=== PATIENT | female | born 1980 | race Caucasian/White ===

== ENCOUNTER 2016-04-25 16:01 | Emergency (ER) | payer MEDICAID ==
--- NOTE | 2016-04-25 16:08 | ER Document Report ---
ED Medical Screen (RME) - General Chief Complaint: Hip Pain Stated Complaint: RIGHT HIP PAIN Notes: Right hip pain for 2 weeks with no known injury. I greeted and performed a rapid initial assessment of this patient. Comprehensive ED assessment and evaluation of the patient, analysis of test results and completion of the medical decision making process will be conducted by additional ED providers. TRAVEL OUTSIDE OF THE [place] IN LAST 30 DAYS: No - Related Data Allergies/Adverse Reactions: naproxen [From Aleve] Allergy (Verified 12/26/15 15:23) Past Medical History Endocrine Medical History: Reports: Hx Hypothyroidism Past Surgical History: Reports: Hx Breast Surgery, Hx Section, Hx Tonsillectomy
[2016-04-25] MEDS ORDERED: NORMAL SALINE 1000 ML 1,000 ML IV PRN (16:13)
[2016-04-25 16:34] LABS: ABSOLUTE BASOPHILS # (AUTO) 0.1 10^3/uL (0.0-0.2); ABSOLUTE EOSINOPHILS # (AUTO) 0.1 10^3/uL (0.0-0.6); ABSOLUTE LYMPHOCYTES (AUTO) 1.5 10^3/uL (0.5-4.7); ABSOLUTE MONOCYTES (AUTO) 0.6 10^3/uL (0.1-1.4); ABSOLUTE NEUT (AUTO) 10.6 10^3/uL (1.7-8.2); BASOPHILS % (AUTO) 0.7 % (0-2); EOSINOPHILS % (AUTO) 0.8 % (0-6); HEMATOCRIT 47.3 % (36.0-47.0); HEMOGLOBIN 15.5 g/dL (12.0-15.5); HGB HCT DIFFERENCE -0.8; LYMPHOCYTES % (AUTO) 11.8 % (13-45); MEAN CORPUSCULAR HGB CONC 32.8 g/dL (32.0-36.0); MEAN CORPUSCULAR VOLUME 89 fl (80-97); MONOCYTES % (AUTO) 4.6 % (3-13); RED BLOOD COUNT 5.34 10^6/uL (3.72-5.28); RED CELL DISTRIBUTION WIDTH 13.1 % (11.5-14.0); SEGMENTED NEUTROPHILS % (AUTO) 82.1 % (42-78)
[2016-04-25 16:40] LABS: APPEARANCE,URINE CLEAR; BILIRUBIN,URINE NEGATIVE (NEGATIVE); GLUCOSE, URINE NEGATIVE (NEGATIVE); KETONES,URINE NEGATIVE (NEGATIVE); LEUKOCYTE ESTERASE,URINE TRACE (NEGATIVE); NITRITE,URINE NEGATIVE (NEGATIVE); PROTEIN,URINE NEGATIVE (NEGATIVE); URINE SPECIFIC GRAVITY 1.005; UROBILINOGEN,URINE NEGATIVE mg/dL (<2.0)
[2016-04-25 16:50] LABS: ALANINE AMINOTRANSFERASE 33 U/L (9-52); ALKALINE PHOSPHATASE 94 U/L (38-126); ANION GAP 15 (5-19); ASPARTATE AMINO TRANSFERASE 29 U/L (14-36); BILIRUBIN,TOTAL 0.5 mg/dL (0.2-1.3); BLOOD UREA NITROGEN 11 mg/dL (7-20); CALCIUM 10.3 mg/dL (8.4-10.2); CARBON DIOXIDE 24 mmol/L (22-30); CHLORIDE 106 mmol/L (98-107); CREATININE RESULT 0.63 mg/dL (0.52-1.25); GLUCOSE 161 mg/dL (75-110); POTASSIUM 4.2 mmol/L (3.6-5.0); SODIUM 144.9 mmol/L (137-145)
[2016-04-25] MEDS ORDERED: IBUPROFEN 800 MG TABLET PO ONE (17:26)
--- NOTE | 2016-04-25 17:51 | ER Document Report ---
HPI - HPI Patient complains to provider of: hip pain Pain Level: 4 Context: Patient is a 35 old female presents emergency Department complaining of right hip pain. 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 She states it is worse with standing and while she is at work. States it is a constant ache and at its worse with a burning quality. Improves with rest, heat, ice, Motrin. Denies any injury or accident Past medical history significant for hypothyroidism and renal stones Past surgical history significant for breast augmentation, , tubal ligation, T&A - REPRODUCTIVE Reproductive: DENIES: : - DERM Skin Color: Normal, [place] Past Medical History - General Information source: Patient - Social History Smoking Status: Unknown if Ever Smoked Family History: None Patient has suicidal ideation: No Patient has homicidal ideation: No Endocrine Medical History: Reports: Hx Hypothyroidism Renal/ Medical History: Denies: Hx Peritoneal Dialysis Past Surgical History: Reports: Hx Breast Surgery, Hx Section, Hx Tonsillectomy Vertical Provider Document - CONSTITUTIONAL Agree With Documented VS: No - heartbeat 98/m Exam Limitations: No Limitations General Appearance: WD/WN, Mild Distress - INFECTION CONTROL TRAVEL OUTSIDE OF THE [place] IN LAST 30 DAYS: No - RESPIRATORY O2 Sat by Pulse Oximetry: 98 - CARDIOVASCULAR Cardiovascular: Regular Rate, Regular Rhythm, No Murmur Pulses: Normal: Radial, Dorsalis pedis Notes: Capillary refill in all lower extremity digits less than 2 seconds - BACK Back: Normal Inspection. negative: CVA Tenderness-Right, CVA Tenderness-Left Notes: No tenderness to palpation, able to ambulate without any difficulty. - MUSCULOSKELETAL/EXTREMETIES Musculoskeletal/Extremeties: FROM, Tender - Tenderness to palpation along the iliotibial band distribution, No Edema. negative: Eccymosis - NEURO Level of Consciousness: Awake, Alert, Appropriate Motor/Sensory: No Motor Deficit, No Sensory Deficit - DERM Integumentary: Warm, Dry, No Rash Course - Re-evaluation Re-evalutation: 04/25/16 17:59 Patient is a 35 old female who is visibly uncomfortable but otherwise hemodynamically stable in no acute distress. Stream physical exam along with benign x-ray lead to suspicion of IT band syndrome. Patient was educated on cause and proper stretching and appropriate management for her condition and she can follow-up with her primary care provider as needed - Vital Signs Vital signs: Temp Pulse Resp BP Pulse Ox 98.6 F 108 H 16 129/79 H 98 04/25/16 16:11 04/25/16 16:54 04/25/16 16:54 04/25/16 16:11 04/25/16 16:11 - Laboratory Result Diagrams: 04/25/16 16:15 04/25/16 16:15 Laboratory results interpreted by me: 04/25/16 04/25/16 04/25/16 16:15 16:15 16:15 WBC 13.0 H RBC 5.34 H Hct 47.3 H Seg Neutrophils % 82.1 H Lymphocytes % 11.8 L Absolute Neutrophils 10.6 H Glucose 161 H Calcium 10.3 H Ur Leukocyte Esterase TRACE H Discharge - Discharge Clinical Impression: IT band syndrome Qualifiers: Laterality: right Qualified Code(s): M76.31 - Iliotibial band syndrome, right leg Condition: Good Disposition: HOME, SELF-CARE Instructions: Muscle Strain ([facility]), Use of [id number]-Yabmbmd Ibuprofen ([facility]), Warm Packs ([facility]), Ice Massage ([facility]) Additional Instructions: -That causes her pain is likely due to iliotibial band syndrome. - Please see attached stretches and information on [id number] medications for symptom management. - You can follow-up with her primary care provider as needed Forms: Return to Work
[2016-04-25 18:49] VITALS: BP 126/82
== END 2016-04-25 18:49 | disposition home or self-care (01) ==
LOC: ER 16:01
DX: M76.31 Iliotibial band syndrome, right leg (principal); M25.551 Pain in right hip
CPT/HCPCS: 36415; 80053; 81001; 85025; 99283

== ENCOUNTER 2016-04-27 14:25 | Emergency (ER) | payer MEDICAID, OTHER ==
[2016-04-27] MEDS ORDERED: ONDANSETRON 4 MG TAB.RAPDIS PO ONE (15:04)
[2016-04-27] MEDS ORDERED: OXYCODONE-ACETAMINOPHEN 5-325 MG TABLET PO ONE (15:04)
--- NOTE | 2016-04-27 15:04 | ER Document Report ---
ED Medical Screen (RME) - General Stated Complaint: RIGHT HIP PAIN Mode of Arrival: Ambulatory Information source: Patient Notes: Patient complains of right lower back pain that radiates around to right side of abdomen. Patient states occasionally the pain will radiate to right lower extremity. Patient does report some nausea. Patient was evaluated 2 days ago in the ER for this complaint. Hx: Scoliosis, hypothyroid I have greeted and performed a rapid initial assessment of this patient. A comprehensive ED assessment and evaluation of the patient, analysis of test results and completion of the medical decision making process will be conducted by additional ED providers. TRAVEL OUTSIDE OF THE [place] IN LAST 30 DAYS: No - Related Data Allergies/Adverse Reactions: naproxen [From Aleve] Allergy (Verified 12/26/15 15:23) Past Medical History Endocrine Medical History: Reports: Hx Hypothyroidism Renal/ Medical History: Denies: Hx Peritoneal Dialysis Past Surgical History: Reports: Hx Breast Surgery, Hx Section, Hx Tonsillectomy Physical Exam - Vital signs Vitals: Temp Pulse Resp BP 97.9 F 94 22 H 122/62 04/27/16 14:43 04/27/16 14:43 04/27/16 14:43 04/27/16 14:43 - Abdominal Tenderness: Tender - Right lateral side of abdomen Course - Vital Signs Vital signs: Temp Pulse Resp BP Pulse Ox 97.9 F 94 22 H 122/62 04/27/16 14:43 04/27/16 14:43 04/27/16 14:43 04/27/16 14:43
[2016-04-27 15:48] LABS: ABSOLUTE BASOPHILS # (AUTO) 0.1 10^3/uL (0.0-0.2); ABSOLUTE EOSINOPHILS # (AUTO) 0.4 10^3/uL (0.0-0.6); ABSOLUTE LYMPHOCYTES (AUTO) 1.3 10^3/uL (0.5-4.7); ABSOLUTE MONOCYTES (AUTO) 0.9 10^3/uL (0.1-1.4); ABSOLUTE NEUT (AUTO) 13.8 10^3/uL (1.7-8.2); BASOPHILS % (AUTO) 0.5 % (0-2); EOSINOPHILS % (AUTO) 2.3 % (0-6); HEMATOCRIT 42.4 % (36.0-47.0); HEMOGLOBIN 14.4 g/dL (12.0-15.5); HGB HCT DIFFERENCE 0.8; LYMPHOCYTES % (AUTO) 7.8 % (13-45); MEAN CORPUSCULAR HEMOGLOBIN 29.8 pg (27.0-33.4); MEAN CORPUSCULAR VOLUME 88 fl (80-97); MONOCYTES % (AUTO) 5.3 % (3-13); RED BLOOD COUNT 4.84 10^6/uL (3.72-5.28); SEGMENTED NEUTROPHILS % (AUTO) 84.1 % (42-78); WHITE BLOOD COUNT 16.4 10^3/uL (4.0-10.5)
[2016-04-27 15:59] LABS: APPEARANCE,URINE CLEAR; BILIRUBIN,URINE NEGATIVE (NEGATIVE); GLUCOSE, URINE NEGATIVE (NEGATIVE); KETONES,URINE NEGATIVE (NEGATIVE); LEUKOCYTE ESTERASE,URINE NEGATIVE (NEGATIVE); NITRITE,URINE NEGATIVE (NEGATIVE); PROTEIN,URINE NEGATIVE (NEGATIVE); URINE SPECIFIC GRAVITY 1.015; UROBILINOGEN,URINE NEGATIVE mg/dL (<2.0)
[2016-04-27 16:05] LABS: ALANINE AMINOTRANSFERASE 32 U/L (9-52); ALBUMIN 4.1 g/dL (3.5-5.0); ALKALINE PHOSPHATASE 89 U/L (38-126); ANION GAP 12 (5-19); ASPARTATE AMINO TRANSFERASE 25 U/L (14-36); BILIRUBIN,TOTAL 0.3 mg/dL (0.2-1.3); BLOOD UREA NITROGEN 19 mg/dL (7-20); CALCIUM 9.5 mg/dL (8.4-10.2); CARBON DIOXIDE 29 mmol/L (22-30); CHLORIDE 101 mmol/L (98-107); CREATININE RESULT 0.63 mg/dL (0.52-1.25); GLUCOSE 65 mg/dL (75-110); LIPASE 17.5 U/L (23-300); POTASSIUM 4.8 mmol/L (3.6-5.0); SODIUM 141.6 mmol/L (137-145)
--- NOTE | 2016-04-27 16:34 | ER Document Report ---
ED GI/ - General Chief Complaint: Abdominal Pain Stated Complaint: RIGHT HIP PAIN Time seen by provider: 16:30 Mode of Arrival: Ambulatory Information source: Patient Notes: 35-year-old female presents to ED for right flank pain with blood in her urine nausea since the . Symptoms are not getting better but are actually getting worse. Patient does have a history of a kidney stone. TRAVEL OUTSIDE OF THE [place] IN LAST 30 DAYS: No - HPI Patient complains to provider of: Flank pain Onset: Last week Timing/Duration: Gradual, Intermittent, Persistent Quality of pain: Sharp Severity at maximum: Severe Severity in ED: Moderate Pain Level: 3 Location: Right flank Vaginal bleeding (Compared to normal period): None Associated symptoms: Nausea Exacerbated by: Movement, Walking Relieved by: Denies Similar symptoms previously: Yes Recently seen / treated by doctor: Yes - Related Data Allergies/Adverse Reactions: naproxen [From Aleve] Allergy (Verified 04/27/16 15:04) Past Medical History - General Information source: Patient - Social History Smoking Status: Current Every Day Smoker Cigarette use (# per day): Yes - 2-3 cigarettes a day Chew tobacco use (# tins/day): No Smoking Education Provided: Yes - less than 1 minute Frequency of alcohol use: Occasional Drug Abuse: None Occupation: [employer] Lives with: Family, Friend Family History: Arthritis, CAD, COPD, CVA, DM, Hyperlipidemia, Hypertension, Malignancy, Thyroid Disfunction Patient has suicidal ideation: No Patient has homicidal ideation: No - Past Medical History Cardiac Medical History: Reports: None Pulmonary Medical History: Reports: Other - Pulmonary sarcoidosis EENT Medical History: Reports: None Neurological Medical History: Reports: None Endocrine Medical History: Reports: Hx Hypothyroidism Renal/ Medical History: Reports: None Malignancy Medical History: Reports: None GI Medical History: Reports: None Musculoskeltal Medical History: Reports Other - Scoliosis Skin Medical History: Reports None Psychiatric Medical History: Reports: None Traumatic Medical History: Reports: None Surgical Hx: Negative Past Surgical History: Reports: Hx Breast Surgery, Hx Section - 3, Hx Nose Surgery - Deviated septum, Hx Tonsillectomy - Immunizations Immunizations up to date: Yes Review of Systems - Review of Systems Constitutional: No symptoms reported EENT: No symptoms reported Cardiovascular: No symptoms reported Respiratory: No symptoms reported Gastrointestinal: Nausea Genitourinary: Flank pain, Hematuria Female Genitourinary: No symptoms reported Musculoskeletal: No symptoms reported Skin: No symptoms reported Hematologic/Lymphatic: No symptoms reported Neurological/Psychological: No symptoms reported Physical Exam - Vital signs Vitals: Temp Pulse Resp BP 97.9 F 94 22 H 122/62 04/27/16 14:43 04/27/16 14:43 04/27/16 14:43 04/27/16 14:43 Interpretation: Normal - General General appearance: Appears well, Alert - HEENT Head: Normocephalic, Atraumatic Eyes: Normal Pupils: PERRL - Respiratory Respiratory status: No respiratory distress Chest status: Nontender Breath sounds: Normal Chest palpation: Normal - Cardiovascular Rhythm: Regular Heart sounds: Normal auscultation Murmur: No - Abdominal Inspection: Normal Distension: No distension Bowel sounds: Normal Tenderness: Tender - Right flank Organomegaly: No organomegaly - Back Back: Normal, Tender - Right flank, CVA tenderness - Right. No: Deformity/step- off, Vertebra tenderness, Scars, Scoliosis, Wounds - Extremities General upper extremity: Normal inspection, Nontender, Normal color, Normal ROM , Normal temperature General lower extremity: Normal inspection, Nontender, Normal color, Normal ROM , Normal temperature, Normal weight bearing. No: Sotero's sign - Neurological Neuro grossly intact: Yes Cognition: Normal Orientation: AAOx4 [place] Coma Scale Eye Opening: Spontaneous [place] Coma Scale Verbal: Oriented [place] Coma Scale Motor: Obeys Commands [place] Coma Scale Total: 15 Speech: Normal Motor strength normal: LUE, RUE, LLE, RLE Sensory: Normal - Psychological Associated symptoms: Normal affect, Normal mood - Skin Skin Temperature: Warm Skin Moisture: Dry Skin Color: Normal Course - Re-evaluation Re-evalutation: 04/27/16 18:[address] with patient and patient patient started on azithromycin discharged home with instructions to follow-up with her primary doctor within the next 2-3 days. - Vital Signs Vital signs: Temp Pulse Resp BP Pulse Ox 97.9 F 94 22 H 122/62 04/27/16 14:43 04/27/16 14:43 04/27/16 14:43 04/27/16 14:43 - Laboratory Result Diagrams: 04/27/16 15:30 04/27/16 15:30 Laboratory results interpreted by me: 04/27/16 04/27/16 04/27/16 15:30 15:30 15:30 WBC 16.4 H Seg Neutrophils % 84.1 H Lymphocytes % 7.8 L Absolute Neutrophils 13.8 H Glucose 65 L Lipase 17.5 L Urine Blood MODERATE H - Diagnostic Test Radiology reviewed: Image reviewed, Reports reviewed Discharge - Discharge Clinical Impression: Ground glass opacity present on imaging of lung, non obstructing kidney stones Pneumonia Qualifiers: Pneumonia type: due to unspecified organism Laterality: right Lung location: middle lobe of lung Qualified Code(s): J18.1 - Lobar pneumonia, unspecified organism Condition: Stable Disposition: HOME, SELF-CARE Instructions: Family Physicians / Practices Additional Instructions: KIDNEY STONE: You are passing or have passed a kidney stone. These stones are usually due to increased calcium or uric acid concentrations in your urine. Stones within the kidney itself are not painful. The pain occurs as the stone leaves the kidney to pass down the long tube, called the ureter, leading to the bladder. If the stone is small, it will usually pass by itself. Most patients can pass the stone at home. You will usually receive medications for pain, nausea or vomiting, and sometimes a medication to assist in passing the kidney stone. However, if the pain is very severe or if vomiting prevents you from taking oral pain medications, you may need to return for further treatment. Drink three or four quarts of fluids per day. You will be given pain medication (if needed) and urine strainers. Strain all your urine to see if the stone passes. If your doctor has asked you to bring the stone in for analysis, return with the stone once it has passed. Return if pain or vomiting become severe, if you develop a high fever, if you are unable to pass your urine, or if other unusual symptoms occur. Your stones are nonobstructing at this time and you do not have pain from the stone. PNEUMONIA: Your examination indicates that you have pneumonia. This is an infection of the lung tissue, usually caused by bacteria or a virus. Symptoms include cough, fever, shaking chills, chest pain, shortness of breath, and coughing up bloody sputum. Treatment for bacterial pneumonia includes rest, antibiotics for 10 to 14 days, increasing your clear liquid intake, a cool mist humidifier at your bedside, and fever medication. Often, a repeat chest X-ray is performed in a few weeks--even if you feel better--to ascertain whether the infection has completely resolved and no underlying lung problem is present. You should call the physician if you develop persistent vomiting, high fever that does not respond to fever medication, increasing shortness of breath , confusion, or lethargy. Also, failure to improve within two to three days is an indication for re-examination. AZITHROMYCIN: Azithromycin (Zithromax) is a broad spectrum antibiotic in the same class as erythromycin. It can treat a variety of bacterial infections, but is most frequently used for respiratory infections. Azithromycin is extremely long-lasting. It accumulates in body tissues and continues to kill bacteria for many days. In order to improve absorption, Azithromycin should be taken at least one hour before or two hours after a meal. It does not have the same strong tendency to upset the stomach as erythromycin and is usually very well tolerated. Patients who have had a rash or other true allergic reactions to erythromycin should not take this medication. Call if you develop gastrointestinal distress, severe diarrhea, rash, hives, itching, or shortness of breath. USE OF ACETAMINOPHEN (Tylenol): Acetaminophen may be taken for pain relief or fever control. It's much safer than aspirin, offering a wider range of "safe" dosages. It is safe during . Some brand names are Tylenol, Panadol, Datril, Anacin 3, Tempra, and Liquiprin. Acetaminophen can be repeated every four hours. The following are maximum recommended dosages: WEIGHT Dose Drops Elixir Chewable( 80mg) (LBS.) drprs=droppers tsp=teaspoon 6 40 mg 0.4 ml (1/2) 6-11 80 mg 0.8 ml (full) tsp 1 tab 12-16 120 mg 1 1/2 drprs 3/4 tsp 1 1/2 tabs 17-23 160 mg 2 drprs 1 tsp 2 tabs 24-30 240 mg 3 drprs 1 1/2 tsp 3 tabs 30-35 320 mg 2 tsp 4 tabs 36-41 360 mg 2 1/4 tsp 4 1/2 tabs 42-47 400 mg 2 1/2 tsp 5 tabs 48-53 480 mg 3 tsp 6 tabs 54-59 520 mg 3 1/4 tsp 6 1/2 tabs 60-64 560 mg 3 1/2 tsp 7 tabs 65-70 600 mg 3 3/4 tsp 7 1/2 tabs 71-76 640 mg 4 tsp 8 tabs 77-82 720 mg 4 1/2 tsp 9 tabs 83-88 800 mg 5 tsp 10 tabs >89 pounds or adults 650 mg to 900 mg Acetaminophen can be repeated every four hours. Maximum dose not to exceed 4000 mg a day. These maximum recommended dosages are slightly higher than the dosages written on the product container, but these dosages are very safe and below the toxic dosage for acetaminophen. USE OF [id number] IBUPROFEN: Ibuprofen (Advil, Nuprin, Medipren, Motrin IB) is a medication for fever and pain control. In addition, it has anti- inflammatory effects which may be beneficial, especially in the treatment of injuries. It's best to take ibuprofen with food. Persons with ulcer disease or allergy to aspirin should notify their physician of this before taking ibuprofen. Ibuprofen can be given every four to six hours, for a total of four doses daily. Age Pain or fever dose Antiinflammatory dose 6-8 yr 200 mg (1 tab) 200 mg (1 tab) 9-11 yr 200 mg (1 tab) 200-400 mg (1-2 tab) 11-14 yr 200-400 mg (1-2 tab) 400 mg (2 tab) 15-adult 400 mg (2 tab) 600 mg (3 tab) FOLLOW-UP CARE: If you have been referred to a physician for follow-up care, call the physician s office for an appointment as you were instructed or within the next two days. If you experience worsening or a significant change in your symptoms, notify the physician immediately or return to the Emergency Department at any time for re-evaluation. Prescriptions: Azithromycin [Zithromax 250 mg Tablet] 250 mg PO ASDIR PRN #6 tablet PRN Reason: Forms: Return to Work
[2016-04-27 19:05] VITALS: BP 130/66
== END 2016-04-27 18:54 | disposition home or self-care (01) ==
LOC: ER 14:25
DX: J18.1 Lobar pneumonia, unspecified organism (principal); N20.0 Calculus of kidney; R10.9 Unspecified abdominal pain; M25.551 Pain in right hip; F17.210 Nicotine dependence, cigarettes, uncomplicated; E03.9 Hypothyroidism, unspecified
CPT/HCPCS: 99284; 36415; 83690; 85025; 81025; 80053; 81001; 71250; 76380; S0119

== ENCOUNTER 2016-05-11 17:06 | Emergency (ER) | payer MEDICAID, OTHER ==
--- NOTE | 2016-05-11 17:42 | ER Document Report ---
ED Medical Screen (RME) - General Stated Complaint: SIDE PAIN Time seen by provider: 17:37 Mode of Arrival: Ambulatory Information source: Patient TRAVEL OUTSIDE OF THE [place] IN LAST 30 DAYS: No - HPI Patient complains to provider of: RIGHT HIP PAIN Onset: Other - 1 1/2 WEEKS Onset/Duration: Constant, Persistent Context: DX WITH PNEUMONIA, FINISH ANTIBIOTICS 10 DAYS AGO. STILL FEELING FATIGUED, WEAK , COUGHING, SOB Severity: Moderate Pain Level: 4 Associated Symptoms: Chills, Cough (productive), Diarrhea - N/V/D STARTED YESTERDAY, Dysuria - C/O URINARY FREQUENCY, Hurts to breath, Nausea, Shortness of breath, Vomiting, Other - PAIN RADIATES TO RIGHT HIP. denies: Fever Exacerbated by: Coughing, Deep breathing Relieved by: Denies Similar symptoms previously: Yes Recently seen / treated by doctor: Yes - Related Data Smoking: Quit less than 1 year Frequency of alcohol use: Occasional Drug Abuse: None Allergies/Adverse Reactions: naproxen [From Aleve] Allergy (Verified 05/11/16 17:36) Past Medical History Endocrine Medical History: Reports: Hx Hypothyroidism Renal/ Medical History: Denies: Hx Peritoneal Dialysis Past Surgical History: Reports: Hx Breast Surgery, Hx Section - 3, Hx Nose Surgery - Deviated septum, Hx Tonsillectomy - Immunizations Immunizations up to date: Yes Physical Exam - Vital signs Vitals: Temp Pulse Resp BP Pulse Ox 97.8 F 80 14 119/69 99 05/11/16 17:12 05/11/16 17:12 05/11/16 17:12 05/11/16 17:12 05/11/16 17:12 Course - Vital Signs Vital signs: Temp Pulse Resp BP Pulse Ox 97.8 F 80 14 119/69 99 05/11/16 17:12 05/11/16 17:12 05/11/16 17:12 05/11/16 17:12 05/11/16 17:12
[2016-05-11 18:13] LABS: ABSOLUTE BASOPHILS # (AUTO) 0.1 10^3/uL (0.0-0.2); ABSOLUTE EOSINOPHILS # (AUTO) 0.3 10^3/uL (0.0-0.6); ABSOLUTE LYMPHOCYTES (AUTO) 2.8 10^3/uL (0.5-4.7); ABSOLUTE MONOCYTES (AUTO) 0.8 10^3/uL (0.1-1.4); ABSOLUTE NEUT (AUTO) 10.2 10^3/uL (1.7-8.2); BASOPHILS % (AUTO) 0.9 % (0-2); EOSINOPHILS % (AUTO) 1.8 % (0-6); HEMATOCRIT 41.3 % (36.0-47.0); HGB HCT DIFFERENCE 0.7; MEAN CORPUSCULAR HEMOGLOBIN 29.7 pg (27.0-33.4); MEAN CORPUSCULAR VOLUME 88 fl (80-97); MONOCYTES % (AUTO) 5.6 % (3-13); RED BLOOD COUNT 4.71 10^6/uL (3.72-5.28); RED CELL DISTRIBUTION WIDTH 13.2 % (11.5-14.0); SEGMENTED NEUTROPHILS % (AUTO) 71.7 % (42-78); WHITE BLOOD COUNT 14.2 10^3/uL (4.0-10.5)
[2016-05-11 18:21] LABS: APPEARANCE,URINE CLEAR; BILIRUBIN,URINE NEGATIVE (NEGATIVE); GLUCOSE, URINE NEGATIVE (NEGATIVE); KETONES,URINE NEGATIVE (NEGATIVE); LEUKOCYTE ESTERASE,URINE NEGATIVE (NEGATIVE); NITRITE,URINE NEGATIVE (NEGATIVE); PROTEIN,URINE NEGATIVE (NEGATIVE); URINE SPECIFIC GRAVITY 1.016; UROBILINOGEN,URINE NEGATIVE mg/dL (<2.0)
[2016-05-11 18:23] LABS: ALANINE AMINOTRANSFERASE 48 U/L (9-52); ALBUMIN 4.6 g/dL (3.5-5.0); ALKALINE PHOSPHATASE 99 U/L (38-126); ANION GAP 11 (5-19); ASPARTATE AMINO TRANSFERASE 29 U/L (14-36); BILIRUBIN,TOTAL 0.4 mg/dL (0.2-1.3); BLOOD UREA NITROGEN 17 mg/dL (7-20); CALCIUM 9.9 mg/dL (8.4-10.2); CARBON DIOXIDE 30 mmol/L (22-30); CHLORIDE 103 mmol/L (98-107); CREATININE RESULT 0.69 mg/dL (0.52-1.25); GLUCOSE 94 mg/dL (75-110); SODIUM 143.8 mmol/L (137-145); TOTAL PROTEIN 7.2 g/dL (6.3-8.2)
--- NOTE | 2016-05-11 19:29 | ER Document Report ---
ED General - General Time seen by provider: 19:00 Information source: Patient, [facility] Records <ROSETTA SALVADOR - Last Filed: 05/11/16 19:30> - General Mode of Arrival: Ambulatory Information source: Patient, [facility] Records TRAVEL OUTSIDE OF THE [place] IN LAST 30 DAYS: No - HPI Onset: Other - last few weeks Onset/Duration: Persistent Quality of pain: Achy Associated symptoms: None Similar symptoms previously: Yes Recently seen / treated by doctor: Yes <POP CARDOZO - Last Filed: 05/11/16 20:19> - General Chief Complaint: Hip Pain Stated Complaint: SIDE PAIN Notes: This 35-year-old female patient comes emergency room for right low back pain for the past few weeks. She notes it is worse when she is walking. 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 The pain in the right low back came first, then over time she began having pain going down the right lateral thigh. She believes this may be due to altered walking mechanics compensating for the pain in the low back. She does have a past medical history of pulmonary sarcoidosis, hypothyroidism. She was seen here on 04/25/2016 and diagnosed with iliotibial band syndrome and recommended heat and Motrin. She was seen here [address] days later and had CT scans of the abdomen and pelvis and a CTA of the chest. The scans showed nephrolithiasis without ureterolithiasis. It showed chronic interstitial lung disease which spares the right middle lobe. This is probably do to her history of sarcoidosis and her smoking history. She did quit smoking on that visit on 04/27/2016. The scan also showed calcified granulomas and pulmonary consultation was recommended. The radiologist had read around grass appearance airspace disease possibility of pneumonia, so the patient was diagnosed with pneumonia and prescribed Zithromax. She has not received any benefit from the treatment so far. Physical exam today shows the pain is specifically in the right lumbar sacral muscles. Palpating the area reproduces the pain acutely. There is some mild tenderness along the iliotibial band. The lungs are essentially clear. (MADELEINEKEAGAN ChildersALL) Patient is a 35-year-old female that presents to the emergency department today with complaints of right low back pain. Patient states that she has had the pain for the last few weeks. Patient states her pain is exacerbated when walking. Patient states the pain initially began a few days ago in her right low back and has progressed down her right lateral thigh. Patient states she believes that she is over compensating when walking due to her low back pain which has caused the increasing, moving pain. 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 Family History: Reviewed & Not Pertinent Patient has suicidal ideation: No Patient has homicidal ideation: No Endocrine Medical History: Reports: Hx Hypothyroidism Past Surgical History: Reports: Hx Breast Surgery, Hx Section - 3, Hx Nose Surgery - Deviated septum, Hx Tonsillectomy - Immunizations Immunizations up to date: Yes <POP CARDOZO - Last Filed: 05/11/16 20:19> Review of Systems - Review of Systems Constitutional: No symptoms reported EENT: No symptoms reported Cardiovascular: No symptoms reported Respiratory: No symptoms reported Gastrointestinal: No symptoms reported Genitourinary: No symptoms reported Female Genitourinary: No symptoms reported Musculoskeletal: See HPI, Back pain - right lower back pain Skin: No symptoms reported Hematologic/Lymphatic: No symptoms reported Neurological/Psychological: No symptoms reported -: Yes All other systems reviewed and negative <OPP CARDOZO - Last Filed: 05/11/16 20:19> Physical Exam - General General appearance: Appears well, Alert In distress: None - HEENT Head: Normocephalic, Atraumatic Eyes: Normal Extraocular movements intact: Yes - Respiratory Respiratory status: No respiratory distress - Cardiovascular Rhythm: Regular Heart sounds: Normal auscultation Murmur: No - Abdominal Inspection: Normal Distension: No distension - Back Back: Tender - Exquisite tenderness with palpation over the lower lumbar muscles and upper sacral muscles. Reproduces chief complaint.. No: Deformity/ step-off - Extremities General upper extremity: Normal inspection, Normal ROM. No: Edema General lower extremity: Normal inspection, Normal ROM. No: Edema - Neurological Neuro grossly intact: Yes Cognition: Normal Speech: Normal - Psychological Associated symptoms: Normal affect, Normal mood - Skin Skin Temperature: Warm Skin Moisture: Dry Skin Color: Normal <POP CARDOZO - Last Filed: 05/11/16 20:19> - Vital signs Vitals: Temp Pulse Resp BP Pulse Ox 97.8 F 80 14 119/69 99 05/11/16 17:12 05/11/16 17:12 05/11/16 17:12 05/11/16 17:12 05/11/16 17:12 (ROSETTA SALVADOR) (POP CARDOZO) Course - Laboratory Result Diagrams: 05/11/16 17:45 05/11/16 17:45 <ROSETTA SALVADOR - Last Filed: 05/11/16 19:30> - Laboratory Result Diagrams: 05/11/16 17:45 05/11/16 17:45 <POP CARDOZO - Last Filed: 05/11/16 20:19> - Vital Signs Vital signs: Temp Pulse Resp BP Pulse Ox 97.8 F 80 14 119/69 99 05/11/16 17:12 05/11/16 17:12 05/11/16 17:12 05/11/16 17:12 05/11/16 17:12 (ROSETTA SALVADRO) (POP CARDOZO) - Laboratory Laboratory results interpreted by me: 05/11/16 05/11/16 17:45 17:50 WBC 14.2 H Absolute Neutrophils 10.2 H Urine Blood SMALL H (ROSETTA SALVADOR) (POP CARDOZO) Discharge <ROSETTA SALVADOR - Last Filed: 05/11/16 19:30> <POP CARDOZO - Last Filed: 05/11/16 20:19> - Discharge Clinical Impression: Lumbar back sprain Qualifiers: Encounter type: initial encounter Qualified Code(s): S33.5XXA - Sprain of ligaments of lumbar spine, initial encounter Additional Instructions: Low Back Pain: Three out of every four people will have an episode of disabling back pain during their lifetime. Most commonly the pain is due to straining of the muscles and ligaments in the low back. Usual treatment includes: (1) Rest on a firm surface. Avoid lying on your stomach. (2) Ice pack the painful area. After a few days, gentle heat may be used intermittently to relax the area, or ice packs can be continued. (3) Medication may be needed -- muscle relaxers and antiinflammatory medicines are commonly used. (4) As the back improves, exercises are prescribed to strengthen the back and abdominal muscles. Your doctor will advise you on the proper care for your back at each stage in your recovery. You may be better in a few days -- or healing may take several weeks. If new symptoms of a "herniated disc" (radiation of pain, numbness, or tingling down the back of the leg or weakness in the leg) occur, you should be re-examined. Further testing may be necessary. TAKE THE MEDICATION PRESCRIBED. TAKE OTC MOTRIN 600mg EVERY EIGHT HOURS. REST. TRY MOIST HEAT APPLICATIONS. AVOID ACTIVITY THAT WORSENS THE PAIN. FOLLOW UP WITH A LOCAL MEDICAL DOCTOR IF NOT IMPROVING. Follow-up with a local pulmonary medicine doctor to follow and manage your pulmonary sarcoidosis. RETURN TO THE EMERGENCY ROOM IF ANY NEW OR WORSENING SYMPTOMS. Prescriptions: Cyclobenzaprine HCl [Flexeril 5 mg Tablet] 5 mg PO TID PRN #15 tablet PRN Reason: Oxycodone HCl/Acetaminophen [Percocet 5-325 mg Tablet] 1 - 2 tab PO ASDIR PRN # 15 tablet PRN Reason: Scribe Attestation: 05/11/16 19:39 I personally performed the services described in the documentation, reviewed and edited the documentation which was dictated to the scribe in my presence, and it accurately records my words and actions. (ROSETTA SALVADOR) Scribe Documentation - Scribe Written by Eloisa:: Eloisa Ross, 05/11/16 2019 acting as scribe for :: Madleeine <POP CARDOZO - Last Filed: 05/11/16 20:19>
[2016-05-11 19:58] VITALS: BP 129/78
== END 2016-05-11 19:58 | disposition home or self-care (01) ==
LOC: ER 17:06
DX: S33.5XXA Sprain of ligaments of lumbar spine, initial encounter (principal); X58.XXXA Exposure to other specified factors, initial encounter; M54.5 Low back pain; D86.0 Sarcoidosis of lung; Z87.891 Personal history of nicotine dependence; Z87.01 Personal history of pneumonia (recurrent); Z87.442 Personal history of urinary calculi; Z88.8 Allergy status to other drugs, medicaments and biological substances; Z72.0 Tobacco use
CPT/HCPCS: 36415; 71020; 80053; 81001; 85025; 99283

== ENCOUNTER 2016-06-10 16:08 | Emergency (ER) | payer SELFPAY ==
--- NOTE | 2016-06-10 16:19 | ER Document Report ---
ED Medical Screen (RME) - General Stated Complaint: SHAKING,VOMITING Mode of Arrival: Ambulatory Information source: Patient Notes: c/o of right hip pain (chronic), fatigue, intermittent vomiting, shaking, dizzy , increased thirst over the past week. She reports history of hypothyroidism, taking Levothyroxine and endorses compliance. Denies fever, diarrhea, urinary symptoms. I have greeted and performed a rapid initial assessment of this patient. A comprehensive ED assessment and evaluation of the patient, analysis of test results and completion of the medical decision making process will be conducted by additional ED providers. TRAVEL OUTSIDE OF THE [place] IN LAST 30 DAYS: No - Related Data Allergies/Adverse Reactions: naproxen [From Aleve] Allergy (Verified 06/10/16 16:15) Past Medical History Endocrine Medical History: Reports: Hx Hypothyroidism Renal/ Medical History: Denies: Hx Peritoneal Dialysis Past Surgical History: Reports: Hx Breast Surgery, Hx Section - 3, Hx Nose Surgery - Deviated septum, Hx Tonsillectomy - Immunizations Immunizations up to date: Yes Physical Exam - Vital signs Vitals: Temp Pulse Resp BP Pulse Ox 97.3 F 108 H 16 145/88 H 97 06/10/16 16:15 06/10/16 16:15 06/10/16 16:15 06/10/16 16:15 06/10/16 16:15 - Notes Notes: General: no respiratory distress, speaking in full sentences without difficulty Course - Vital Signs Vital signs: Temp Pulse Resp BP Pulse Ox 97.3 F 108 H 16 145/88 H 97 06/10/16 16:15 06/10/16 16:15 06/10/16 16:15 06/10/16 16:15 06/10/16 16:15
[2016-06-10 16:49] LABS: ABSOLUTE BASOPHILS # (AUTO) 0.1 10^3/uL (0.0-0.2); ABSOLUTE EOSINOPHILS # (AUTO) 0.2 10^3/uL (0.0-0.6); ABSOLUTE LYMPHOCYTES (AUTO) 2.4 10^3/uL (0.5-4.7); ABSOLUTE MONOCYTES (AUTO) 0.7 10^3/uL (0.1-1.4); ABSOLUTE NEUT (AUTO) 10.4 10^3/uL (1.7-8.2); BASOPHILS % (AUTO) 0.6 % (0-2); EOSINOPHILS % (AUTO) 1.5 % (0-6); HEMATOCRIT 42.8 % (36.0-47.0); HEMOGLOBIN 14.7 g/dL (12.0-15.5); HGB HCT DIFFERENCE 1.3; LYMPHOCYTES % (AUTO) 17.3 % (13-45); MEAN CORPUSCULAR HGB CONC 34.3 g/dL (32.0-36.0); MEAN CORPUSCULAR VOLUME 88 fl (80-97); MONOCYTES % (AUTO) 5.1 % (3-13); RED BLOOD COUNT 4.89 10^6/uL (3.72-5.28); RED CELL DISTRIBUTION WIDTH 13.5 % (11.5-14.0); SEGMENTED NEUTROPHILS % (AUTO) 75.5 % (42-78); WHITE BLOOD COUNT 13.8 10^3/uL (4.0-10.5)
[2016-06-10 16:53] LABS: APPEARANCE,URINE CLEAR; BILIRUBIN,URINE NEGATIVE (NEGATIVE); GLUCOSE, URINE NEGATIVE (NEGATIVE); KETONES,URINE NEGATIVE (NEGATIVE); LEUKOCYTE ESTERASE,URINE NEGATIVE (NEGATIVE); NITRITE,URINE NEGATIVE (NEGATIVE); PROTEIN,URINE NEGATIVE (NEGATIVE); URINE SPECIFIC GRAVITY 1.002; UROBILINOGEN,URINE NEGATIVE mg/dL (<2.0)
[2016-06-10 17:04] LABS: ALANINE AMINOTRANSFERASE 38 U/L (9-52); ALBUMIN 4.7 g/dL (3.5-5.0); ALKALINE PHOSPHATASE 100 U/L (38-126); ANION GAP 12 (5-19); ASPARTATE AMINO TRANSFERASE 25 U/L (14-36); BILIRUBIN,TOTAL 0.4 mg/dL (0.2-1.3); BLOOD UREA NITROGEN 6 mg/dL (7-20); CALCIUM 9.9 mg/dL (8.4-10.2); CARBON DIOXIDE 32 mmol/L (22-30); CHLORIDE 102 mmol/L (98-107); CREATININE RESULT 0.79 mg/dL (0.52-1.25); GLUCOSE 116 mg/dL (75-110); POTASSIUM 4.5 mmol/L (3.6-5.0); TOTAL PROTEIN 7.9 g/dL (6.3-8.2)
[2016-06-10 17:05] LABS: LIPASE < 10.0 U/L (23-300)
--- NOTE | 2016-06-10 17:26 | ER Document Report ---
HPI - HPI Patient complains to provider of: hip pain and losing voice Onset: Other - 2 months Onset/Duration: Gradual, Better Pain Level: 3 Context: 36-year-old female stating that she has not felt well for 2 months thinking that maybe her thyroid is under dosed with 125 g of Synthroid that she has been taking for 8 months. She has no primary care doctor here in [place]. Having right posterior hip pain but it is actually better. She is seen several times in the emergency department for this along with other symptoms. The symptoms she is also complaining of for 3 days is slightly losing her voice and losing the taste. She states she has been very fatigued for 2 months. No Fever. sHe did vomit once today due to nausea. No abdominal pain. No chest pain. No shortness of breath. No leg pain. Associated Symptoms: None Exacerbated by: Denies Relieved by: Denies Similar symptoms previously: No Recently seen / treated by doctor: No - ROS ROS below otherwise negative: Yes Systems Reviewed and Negative: Yes All other systems reviewed and negative - REPRODUCTIVE LMP: [id number] Reproductive: DENIES: : - DERM Skin Color: Normal Past Medical History - General Information source: Patient - Social History Smoking Status: Current Every Day Smoker Chew tobacco use (# tins/day): No Frequency of alcohol use: None Drug Abuse: None Lives with: Family Family History: Reviewed & Not Pertinent Patient has suicidal ideation: No Patient has homicidal ideation: No - Medical History Medical History: Negative Endocrine Medical History: Reports: Hx Hypothyroidism Renal/ Medical History: Denies: Hx Peritoneal Dialysis Past Surgical History: Reports: Hx Breast Surgery, Hx Section - 3, Hx Nose Surgery - Deviated septum, Hx Tonsillectomy - Immunizations Immunizations up to date: Yes Vertical Provider Document - CONSTITUTIONAL Agree With Documented VS: Yes Exam Limitations: No Limitations - INFECTION CONTROL TRAVEL OUTSIDE OF THE [place] IN LAST 30 DAYS: No - HEENT HEENT: Normocephalic, PERRLA, Pharyngeal Erythema. negative: Conjuctival Injection, Tympanic Membrane Red, Tympanic Membrane Bulging - Minimal - NECK Neck: Supple, Thyroid Normal. negative: Lymphadenopathy-Left, Lymphadenopathy- Right - RESPIRATORY Respiratory: Breath Sounds Normal, No Respiratory Distress O2 Sat by Pulse Oximetry: 97 - CARDIOVASCULAR Cardiovascular: Regular Rate, Regular Rhythm - GI/ABDOMEN Gastrointestinal: Abdomen Soft, Abdomen Non-Tender, No Organomegaly - MUSCULOSKELETAL/EXTREMETIES Musculoskeletal/Extremeties: MAEW, FROM, Tender - Right sacroiliac joint - NEURO Level of Consciousness: Awake, Alert Motor/Sensory: No Motor Deficit, No Sensory Deficit Deep Tendon Reflexes: 2+ - Bilateral patellar and ankle - DERM Integumentary: Warm, Dry Course - Re-evaluation Re-evalutation: 06/10/16 18:[address] craft, add free t4, ESR and CRP. 06/10/16 20:02 Patient now tells me that she took 3 days of approximately an 156 g of Synthroid prior to the level drawn today so that the free T4 drawn today was not an accurate level for her prescribed dose of 125 g. I explained that she needs to see family practice and to get a another level drawn and they can manage her Synthroid doses. I will give her copies of all the lab work and studies done at [facility]. 06/10/16 20:03 - Vital Signs Vital signs: Temp Pulse Resp BP Pulse Ox 97.3 F 108 H 16 145/88 H 97 06/10/16 16:15 06/10/16 16:15 06/10/16 16:15 06/10/16 16:15 06/10/16 16:15 - Laboratory Result Diagrams: 06/10/16 16:20 06/10/16 16:20 Laboratory results interpreted by me: 06/10/16 06/10/16 16:20 16:20 WBC 13.8 H Absolute Neutrophils 10.4 H Sodium 146.0 H Carbon Dioxide 32 H BUN 6 L Glucose 116 H Lipase < 10.0 L Discharge - Discharge Clinical Impression: right sacroilitis joint pain, mild laryngitis Fatigue Qualifiers: Fatigue type: unspecified Qualified Code(s): R53.83 - Other fatigue Condition: Good Disposition: HOME, SELF-CARE Instructions: Family Physicians / Practices, Laryngitis ([facility]), Fatigue ([facility]), Low Back Pain ([facility]) Additional Instructions: copy of labwork given to you See family practice doctor for follow-up, take only the prescribed 125mcg of synthroid prior to another level drawn to determine if your symptoms are hypothyrodism to er if worse Forms: Return to Work
[2016-06-10 20:10] VITALS: BP 124/77
== END 2016-06-10 20:07 | disposition home or self-care (01) ==
LOC: ER 16:08
DX: M46.1 Sacroiliitis, not elsewhere classified (principal); J04.0 Acute laryngitis; E03.9 Hypothyroidism, unspecified; Z91.14 Patient's other noncompliance with medication regimen; R53.83 Other fatigue; R43.8 Other disturbances of smell and taste; R11.2 Nausea with vomiting, unspecified; Z79.899 Other long term (current) drug therapy
CPT/HCPCS: 36415; 80053; 81001; 81025; 83690; 84439; 84443; 85025; 85652; 86140; 99283

== ENCOUNTER 2016-10-22 13:31 | Emergency (ER) | payer SELFPAY ==
[2016-10-22 13:52] VITALS: BP 132/98
[2016-10-22] MEDS ORDERED: NORMAL SALINE 1000 ML 1,000 ML IV ONE (14:02)
--- NOTE | 2016-10-22 14:05 | ER Document Report ---
ED Medical Screen (RME) - General Chief Complaint: Headache Stated Complaint: HEADACHE,VOMITING,RASH Time Seen by Provider: 10/22/16 14:01 Mode of Arrival: Ambulatory Information source: Patient TRAVEL OUTSIDE OF THE [place] IN LAST 30 DAYS: No - HPI Patient complains to provider of: rash, GARCÍA, vomiting, diarrhea Onset: Other - pt. with multiple c/o including GARCÍA, intermittent vomiting and diarrhea for the past few weeks, rash in vaginal area, "bumps" on skin, and cough productive of green sputum - Related Data Allergies/Adverse Reactions: naproxen [From Aleve] Allergy (Verified 10/22/16 13:52) Past Medical History Endocrine Medical History: Reports: Hx Hypothyroidism Renal/ Medical History: Denies: Hx Peritoneal Dialysis Past Surgical History: Reports: Hx Breast Surgery, Hx Section - 3, Hx Nose Surgery - Deviated septum, Hx Tonsillectomy - Immunizations Immunizations up to date: Yes Hx Diphtheria, Pertussis, Tetanus Vaccination: Yes Physical Exam - Vital signs Vitals: Temp Pulse Resp BP Pulse Ox 98.6 F 86 16 132/98 H 98 10/22/16 13:47 10/22/16 13:47 10/22/16 13:47 10/22/16 13:47 10/22/16 13:47 Course - Vital Signs Vital signs: Temp Pulse Resp BP Pulse Ox 98.6 F 86 16 132/98 H 98 10/22/16 13:47 10/22/16 13:47 10/22/16 13:47 10/22/16 13:47 10/22/16 13:47
[2016-10-22 14:40] LABS: ABSOLUTE BASOPHILS # (AUTO) 0.1 10^3/uL (0.0-0.2); ABSOLUTE EOSINOPHILS # (AUTO) 0.2 10^3/uL (0.0-0.6); ABSOLUTE MONOCYTES (AUTO) 0.6 10^3/uL (0.1-1.4); ABSOLUTE NEUT (AUTO) 10.3 10^3/uL (1.7-8.2); APPEARANCE,URINE CLEAR; BASOPHILS % (AUTO) 1.1 % (0-2); BILIRUBIN,URINE NEGATIVE (NEGATIVE); EOSINOPHILS % (AUTO) 1.8 % (0-6); GLUCOSE, URINE NEGATIVE (NEGATIVE); HEMATOCRIT 45.9 % (36.0-47.0); HEMOGLOBIN 15.5 g/dL (12.0-15.5); HGB HCT DIFFERENCE 0.6; KETONES,URINE NEGATIVE (NEGATIVE); LEUKOCYTE ESTERASE,URINE NEGATIVE (NEGATIVE); LYMPHOCYTES % (AUTO) 15.1 % (13-45); MEAN CORPUSCULAR HGB CONC 33.8 g/dL (32.0-36.0); MEAN CORPUSCULAR VOLUME 89 fl (80-97); MONOCYTES % (AUTO) 4.6 % (3-13); NITRITE,URINE NEGATIVE (NEGATIVE); PROTEIN,URINE NEGATIVE (NEGATIVE); RED BLOOD COUNT 5.16 10^6/uL (3.72-5.28); RED CELL DISTRIBUTION WIDTH 13.6 % (11.5-14.0); SEGMENTED NEUTROPHILS % (AUTO) 77.4 % (42-78); URINE SPECIFIC GRAVITY 1.001; UROBILINOGEN,URINE NEGATIVE mg/dL (<2.0); WHITE BLOOD COUNT 13.4 10^3/uL (4.0-10.5)
[2016-10-22 14:52] LABS: ALANINE AMINOTRANSFERASE 114 U/L (9-52); ALBUMIN 4.8 g/dL (3.5-5.0); ALKALINE PHOSPHATASE 118 U/L (38-126); ANION GAP 14 (5-19); ASPARTATE AMINO TRANSFERASE 63 U/L (14-36); BILIRUBIN,DIRECT 0.3 mg/dL (0.0-0.4); BILIRUBIN,TOTAL 0.4 mg/dL (0.2-1.3); BLOOD UREA NITROGEN 5 mg/dL (7-20); CALCIUM 9.8 mg/dL (8.4-10.2); CARBON DIOXIDE 26 mmol/L (22-30); CHLORIDE 105 mmol/L (98-107); CREATININE RESULT 0.68 mg/dL (0.52-1.25); GLUCOSE 107 mg/dL (75-110); POTASSIUM 4.6 mmol/L (3.6-5.0); SODIUM 144.8 mmol/L (137-145); TOTAL PROTEIN 8.1 g/dL (6.3-8.2)
--- NOTE | 2016-10-22 14:55 | RADIOLOGY REPORT (SQ) ---
EXAM DESCRIPTION: CHEST PA/LAT COMPLETED DATE/TIME: 10/22/2016 2:45 pm REASON FOR STUDY: cough COMPARISON: April 2016 EXAM PARAMETERS: NUMBER OF VIEWS: two views TECHNIQUE: Digital Frontal and Lateral radiographic views of the chest acquired. RADIATION DOSE: NA LIMITATIONS: none FINDINGS: LUNGS AND PLEURA: No opacities, masses or pneumothorax. No pleural effusion. MEDIASTINUM AND HILAR STRUCTURES: No masses or contour abnormalities. HEART AND VASCULAR STRUCTURES: Heart normal size. No evidence for failure. BONES: No acute findings. HARDWARE: None in the chest. OTHER: No other significant finding. IMPRESSION: NO SIGNIFICANT RADIOGRAPHIC FINDING IN THE CHEST. TECHNICAL DOCUMENTATION: JOB ID: [id number] [employer]- All Rights Reserved
--- NOTE | 2016-10-22 15:00 | ER Document Report ---
ED General - General Mode of Arrival: Ambulatory Information source: Patient TRAVEL OUTSIDE OF THE [place]. IN LAST 30 DAYS: No - HPI Associated symptoms: Other - see above <EVELIN ESQUIVEL - Last Filed: 10/22/16 15:13> <SYD GALLEGOS - Last Filed: 10/22/16 19:55> - General Chief Complaint: Headache Stated Complaint: HEADACHE,VOMITING,RASH Time Seen by Provider: 10/22/16 14:01 Notes: Patient is a 36 year old female who presents to the ED with multiple complaints of diarrhea since May, intermittent nausea and vomiting, periodic "bumps" on her skin, vaginal rash, SOB and a headache that started yesterday. Patient also adds that she has not had a menstrual cycle in the past 4 months. Patient states she has not been able to attend work the past 2 days because of feeling uncomfortable. Patient states she is having approximately 15 loose stools a day ; she states she is drinking a large amount of fluid (30, 32 oz glasses of water per day) and states she is having to use the restroom every 45 minutes and each time there is stool. Patient denies any blood or tar colored stools and no worms have been noted. Patient states she has put on 25 pounds in a matter of weeks despite the diarrhea she has been having. Patient has a history of migraines and states that her headache is generalized and similar to the start of a typical migraine for her. Patient has been taking Tylenol every 6 hours to treat her headache. Patient states she has tried diet changes with no change to her symptoms. Patient has tried Immodium with some relief but states she doesn't which to take it every day. Patient states the bumps on her skin are on her face, hairline, and pubic area and that she cannot shave due to the bumps. No other concerns or complaints at this time. (EVELIN ESQUIVEL) - Related Data Allergies/Adverse Reactions: naproxen [From Aleve] Allergy (Verified 10/22/16 13:52) Past Medical History - General Information source: Patient - Social History Smoking Status: Former Smoker Chew tobacco use (# tins/day): No Frequency of alcohol use: None Drug Abuse: None Family History: Reviewed & Not Pertinent, Malignancy, Thyroid Disfunction Endocrine Medical History: Reports: Hx Hypothyroidism Renal/ Medical History: Denies: Hx Peritoneal Dialysis Past Surgical History: Reports: Hx Breast Surgery, Hx Section - 3, Hx Nose Surgery - Deviated septum, Hx Tonsillectomy - Immunizations Immunizations up to date: Yes Hx Diphtheria, Pertussis, Tetanus Vaccination: Yes <EVELIN ESQUIVEL - Last Filed: 10/22/16 15:13> Review of Systems - Review of Systems Constitutional: No symptoms reported EENT: No symptoms reported Cardiovascular: No symptoms reported Respiratory: No symptoms reported Gastrointestinal: See HPI, Diarrhea, Nausea, Vomiting. denies: Black stools, Rectal bleeding Genitourinary: No symptoms reported Female Genitourinary: See HPI, Irregular period Musculoskeletal: No symptoms reported Skin: See HPI, Lesions, Rash Hematologic/Lymphatic: No symptoms reported Neurological/Psychological: See HPI, Headaches <ALVINEVELIN - Last Filed: 10/22/16 15:13> Physical Exam <ALVINEVELIN - Last Filed: 10/22/16 15:13> <SYD GALLEGOS - Last Filed: 10/22/16 19:55> - Vital signs Vitals: Temp Pulse Resp BP Pulse Ox 98.6 F 86 16 132/98 H 98 10/22/16 13:47 10/22/16 13:47 10/22/16 13:47 10/22/16 13:47 10/22/16 13:47 - Notes Notes: GENERAL: Alert, interacts well. No acute distress. HEAD: Normocephalic, atraumatic. EYES: Pupils equal, round, and reactive to light. Extraocular movements intact. ENT: Oral mucosa moist, tongue midline. NECK: Full range of motion. Supple. Trachea midline. LUNGS: Clear to auscultation bilaterally, no wheezes, rales, or rhonchi. No respiratory distress. HEART: Regular rate and rhythm. No murmurs, gallops, or rubs. ABDOMEN: Soft, non-tender. Non-distended. Bowel sounds present in all 4 quadrants. EXTREMITIES: Moves all 4 extremities spontaneously. No edema, radial and dorsalis pedis pulses 2/4 bilaterally. No cyanosis. NEUROLOGICAL: Alert and oriented x3. Normal speech. Biceps and patellar DTRs 2+ bilaterally. PSYCH: Normal affect, normal mood. SKIN: Warm, dry, normal turgor. Multiple small pustuals on face and trunk. Left upper thigh firm nodule with no fluctuance that is tender to palpation. Folliculitis beneath panus. Skin breakdown and beefy red erythema to external labia along with white discharge consistent with vaginal yeast infection. ( EVELNI ESQUIVEL) Course - Laboratory Result Diagrams: 10/22/16 14:05 10/22/16 14:05 <EVELIN ESQUIVEL - Last Filed: 10/22/16 15:13> - Laboratory Result Diagrams: 10/22/16 14:05 10/22/16 14:05 <SYD GALLEGOS - Last Filed: 10/22/16 19:55> - Re-evaluation Re-evalutation: 10/22/16 18:51 CBC shows slight leukocytosis of 13.4 otherwise no indicators of infection, CMP unremarkable with the exception of very minimally elevated AST and ALT, no evidence of dehydration, nothing to support her reports that she has been having 15 episodes of loose stools a day, thyroid some functions are normal, urinalysis shows moderate blood but 0 RBCs, more likely myoglobinuria. test is negative, chest x-ray is unremarkable. When asked to provide a stool specimen the patient states she did not realize I wanted her to provide one here. Patient states she could possibly provide one at home. As the patient has been stating that she is having 15 loose bowel movements a day I am somewhat less concerned as she has been in this hospital for at least 3 hours without ever once needing to use the bathroom or being able to provide me with a bowel movement. I do not suspect infectious diarrhea in this patient who is been having 15 loose bowel movements a day for several months now yet has continued to gain 25 pounds over the same time. 10/22/16 19:54 at the very end of her visit, patient was able to provide a stool sample on her way out. (SYD GALLEGOS) - Vital Signs Vital signs: Temp Pulse Resp BP Pulse Ox 98.6 F 86 16 132/98 H 98 10/22/16 13:47 10/22/16 13:47 10/22/16 13:47 10/22/16 13:47 10/22/16 13:47 - Laboratory Laboratory results interpreted by me: 07/14/17 07/14/17 07/14/17 14:05 14:05 14:05 WBC 13.4 H Absolute Neutrophils 10.3 H BUN 5 L AST 63 H ALT 114 H Urine Blood MODERATE H Discharge <EVELIN ESQUIVEL - Last Filed: 10/22/16 15:13> <SYD GALLEGOS - Last Filed: 10/22/16 19:55> - Discharge Clinical Impression: Chronic diarrhea, Pimples, Candidiasis of vulva Condition: Stable Disposition: HOME, SELF-CARE Additional Instructions: For the diarrhea that you have been having for several months it is very important that you follow-up with a GI doctor as an outpatient. I have given you the name of the GI doctor in the area that you should call to set up an appointment. Please keep a log of your bowel movements and the foods that you have eaten that day. This may help to identify a pattern of food that is causing her to have diarrhea. For the vaginal yeast infection I did write you a prescription for Diflucan and you were given your first dose here. If your yeast infection has not cleared up in 3 days please take the second dose of Diflucan. For the "bumps" all of your body please use a salicylic acid containing body wash. Please return to the emergency department for any new or concerning symptoms. Prescriptions: Fluconazole [Diflucan] 150 mg PO ONCE PRN #1 tablet PRN Reason: Forms: Follow-Up Laboratory Testing, Return to Work Referrals: [facility] MD [ACTIVE STAFF] - Follow up in 1 month Scribe Attestation: 10/22/16 19:55 I personally performed the services described in the documentation, reviewed and edited the documentation which was dictated to the scribe in my presence, and it accurately records my words and actions. (SYD GALLEGOS) Scribe Documentation - Scribe Written by Jesse:: jesse Lai, 10/22/2016, 1520 acting as scribe for :: Francis <EVELIN ESQUIVEL - Last Filed: 10/22/16 15:13>
[2016-10-22] MEDS ORDERED: FLUCONAZOLE 100 MG TABLET PO ONE (15:10)
[2016-10-22 15:53] LABS: FREE T3 3.59 pg/mL (2.77-5.27)
[2016-10-22 16:07] LABS: THYROID STIMULATING HORMONE 2.24 uIU/mL (0.47-4.68)
== END 2016-10-22 19:28 | disposition home or self-care (01) ==
LOC: ER 13:31
DX: K52.9 Noninfective gastroenteritis and colitis, unspecified (principal); R23.8 Other skin changes; B37.3 Candidiasis of vulva and vagina; R51 Headache; R11.2 Nausea with vomiting, unspecified
CPT/HCPCS: 99284; 96360; 36415; 87045; 84439; 87205; 84443; 85025; 81025; 80053; 81001; 84481; 71020; J7030

== ENCOUNTER 2017-05-19 06:41 | Inpatient (IN) | payer SELFPAY ==
[2017-05-19] MEDS ORDERED: PREDNISONE 20 MG TABLET PO ONE (08:37)
[2017-05-19 08:54] LABS: APPEARANCE,URINE CLEAR; BILIRUBIN,URINE NEGATIVE (NEGATIVE); COLOR,URINE COLORLESS; GLUCOSE, URINE NEGATIVE (NEGATIVE); KETONES,URINE NEGATIVE (NEGATIVE); LEUKOCYTE ESTERASE,URINE NEGATIVE (NEGATIVE); NITRITE,URINE NEGATIVE (NEGATIVE); PROTEIN,URINE NEGATIVE (NEGATIVE); URINE SPECIFIC GRAVITY 1.002; UROBILINOGEN,URINE NEGATIVE mg/dL (<2.0)
[2017-05-19 09:10] LABS: URINE AMPHETAMINES SCREEN NEGATIVE; URINE BARBITURATES SCREEN NEGATIVE; URINE BENZODIAZEPINES SCREEN NEGATIVE; URINE COCAINE SCREEN UNCONFIRMED POSITIVE; URINE MARIJUANA (THC) SCREEN NEGATIVE; URINE METHADONE SCREEN NEGATIVE; URINE PHENCYCLIDINE SCREEN NEGATIVE
--- NOTE | 2017-05-19 09:15 | RADIOLOGY REPORT (SQ) ---
EXAM DESCRIPTION: CHEST SINGLE VIEW COMPLETED DATE/TIME: 05/19/2017 8:54 am REASON FOR STUDY: sob COMPARISON: 10/22/2016. CT of chest without contrast 04/27/2016. EXAM PARAMETERS: NUMBER OF VIEWS: One view. TECHNIQUE: Single frontal radiographic view of the chest acquired. RADIATION DOSE: NA LIMITATIONS: None. FINDINGS: LUNGS AND PLEURA: On comparison to prior portable chest and CT of chest, there is again bi lateral ground-glass type infiltrates in a perihilar distribution. Calcified granuloma noted at righ t lung base. MEDIASTINUM AND HILAR STRUCTURES: Calcified right perihilar nodes. HEART AND VASCULAR STRUCTURES: Heart is normal with normal pulmonary vasculature. BONES: No acute findings. HARDWARE: None in the chest. OTHER: No other significant finding. IMPRESSION: No significant interval change TECHNICAL DOCUMENTATION: JOB ID: [id number] 2010 [email or web address]- All Rights Reserved
--- NOTE | 2017-05-19 09:17 | EKG REPORT ---
SEVERITY:- ABNORMAL ECG - SINUS TACHYCARDIA CYNDEE, CONSIDER BIATRIAL ABNORMALITIES PROBABLE LVH WITH SECONDARY REPOL ABNRM : Confirmed by: Jace De Jesus 19-May-2017 09:17:21
[2017-05-19 09:38] LABS: BACTERIA (WET MOUNT) 4+ BACTERIA SEEN; EPITHELIALS (WET MOUNT) 3+ EPITHELIALS SEEN; T.VAGINALIS (WET MOUNT) NO TRICHOMONAS SEEN; WBCS (WET MOUNT) FEW WBCS SEEN; YEAST (WET MOUNT) NO YEAST SEEN
[2017-05-19] MEDS: NORMAL SALINE 1000 ML 1,000 ML IV PRN ×2 (09:51→13:17)
[2017-05-19 10:04] LABS: HEMATOCRIT 45.7 % (36.0-47.0); HEMOGLOBIN 15.5 g/dL (12.0-15.5); MEAN CORPUSCULAR HEMOGLOBIN 30.3 pg (27.0-33.4); MEAN CORPUSCULAR VOLUME 89 fl (80-97); PLATELET COUNT 431 10^3/uL (150-450); RED BLOOD COUNT 5.13 10^6/uL (3.72-5.28); RED CELL DISTRIBUTION WIDTH 13.8 % (11.5-14.0)
[2017-05-19 10:14] LABS: INTERNATIONAL RATION (INR) 0.93; PROTHROMBIN TIME 13.1 SEC (11.4-15.4)
[2017-05-19 10:15] LABS: PARTIAL THROMBOPLASTIN TIME 32.5 SEC (23.5-35.8)
[2017-05-19 10:22] LABS: ALANINE AMINOTRANSFERASE 79 U/L (9-52); ALBUMIN 5.5 g/dL (3.5-5.0); ALKALINE PHOSPHATASE 124 U/L (38-126); ANION GAP 17 (5-19); ASPARTATE AMINO TRANSFERASE 54 U/L (14-36); BILIRUBIN,DIRECT 0.1 mg/dL (0.0-0.4); BILIRUBIN,TOTAL 0.7 mg/dL (0.2-1.3); BLOOD UREA NITROGEN 14 mg/dL (7-20); CALCIUM 10.5 mg/dL (8.4-10.2); CARBON DIOXIDE 28 mmol/L (22-30); CHLORIDE 99 mmol/L (98-107); GLUCOSE 83 mg/dL (75-110); POTASSIUM 3.9 mmol/L (3.6-5.0); SODIUM 144.1 mmol/L (137-145); TOTAL PROTEIN 8.9 g/dL (6.3-8.2)
[2017-05-19 10:34] LABS: ABSOLUTE LYMPHOCYTES# (MANUAL) 2.9 10^3/uL (0.5-4.7); ABSOLUTE MONOCYTES # (MANUAL) 0.7 10^3/uL (0.1-1.4); ABSOLUTE NEUTROPHILS# (MANUAL) 20.2 10^3/uL (1.7-8.2); BASOPHILS % (MANUAL) 1 % (0-2); EOSINOPHILS % (MANUAL) 0 % (0-6); LYMPHOCYTES % (MANUAL) 12 % (13-45); MONOCYTES % (MANUAL) 3 % (3-13); SEGMENTED NEUTROPHILS % (MAN) 84 % (42-78); TOTAL CELLS COUNTED 100
[2017-05-19 10:35] LABS: PLATELET COMMENT ADEQUATE; POIKILOCYTOSIS 1+; POLYCHROMASIA SLIGHT; STOMATOCYTES 1+
[2017-05-19 10:51] LABS: CHLAM PCR NOT DETECTED (NOT DETECT); GON PCR NOT DETECTED (NOT DETECT)
--- NOTE | 2017-05-19 11:04 | RADIOLOGY REPORT (SQ) ---
EXAM DESCRIPTION: CTA CHEST COMPLETED DATE/TIME: 05/19/2017 10:19 am REASON FOR STUDY: chest pain tachy sob hx lupus COMPARISON: Non contrasted chest CT scan dated April 2016 and chest x-ray dated 05/19/2017 TECHNIQUE: CT scan of the chest performed using helical scanning technique with dynamic intravenous contrast injection. Images reviewed with lung, soft tissue and bone windows. Reconstructed coronal and sagittal MPR images reviewed. Additional 3 dimensional post-processing performed to develop Maximal Intensity Projection images (MS P). All images stored on PACS. All CT scanners at this facility use dose modulation, iterative reconstruction, and/or weight based d osing when appropriate to reduce radiation dose to as low as reasonably achievable (ALARA). [facility]: Dose Right [facility]: CareDose [facility]: Dose Right [facility]: Teradose 4D [facility]: [employer] CONTRAST TYPE AND DOSE: contrast/concentration: Isovue 370.00 mg/ml; Total Contrast Delivered: 78.0 ml; Total Saline Delivered: 85.1 ml Contrast bolus optimized for the pulmonary arteries. Not diagnostic for the aorta. RENAL FUNCTION: None required. The patient is less than 50 years old. RADIATION DOSE: CT Rad equipment meets quality standard of care and radiation dose reduction techniq ues were employed. CTDIvol: 16.5 - 20.1 mGy. DLP: 790 mGy-cm. . LIMITATIONS: None. FINDINGS: LUNGS AND PLEURA: Diffuse bilateral ground-glass opacities are identified. A more consoli dative process is identified in the right mid lung field. No pleural effusions are identified. A pl eural-based calcific density is identified in the posterior sulcus on the right with a small adjacent calcified granuloma. The calcifications were present on the previous CT scan. AORTA AND GREAT VESSELS: No aneurysm. Contrast bolus not optimized for the aorta. HEART: No pericardial effusion. No significant coronary artery calcifications. PULMONARY ARTERIES: No emboli visualized in the main pulmonary arteries or the segmental branches. HILAR AND MEDIASTINAL STRUCTURES: There are enlarged mediastinal and bilateral hilar lymph nodes. Ca lcified right hilar and subcarinal lymph nodes are identified. HARDWARE: None in the chest. UPPER ABDOMEN: There is diffuse fatty infiltration of the liver. THYROID AND OTHER SOFT TISSUES: No masses. No adenopathy. BONES: No acute or significant finding. 3D MIPS: Confirm above findings. OTHER: No other significant finding. IMPRESSION: No evidence for pulmonary embolic disease. Diffuse bilateral ground-glass opacities are identified with a more consolidative process being identified in the right mid lung field. No pleur al effusions are identified. Differential possibilities would include pulmonary edema on a cardiogen ic or noncardiogenic basis. In light of the patient's clinical history this could be a possible drug reaction. This could also represent a hypersensitivity pneumonitis. The possibility of an infectio us process cannot be excluded. Clinical correlation is recommended. Old granulomatous disease. Oth er findings as noted above. COMMENT: Quality ID # [id number]: Final reports with documentation of one or more dose reduction techniques (e.g., Automated exposure control, adjustment of the mA and/or kV according to patient size, use of iterative reconstruction technique) TECHNICAL DOCUMENTATION: JOB ID: [id number] [employer] All Rights Reserved
[2017-05-19] MEDS ORDERED: LEVOFLOXACIN 500 MG/D5W RTU 500 MG/100 ML RTUPB IV ONE (12:34)
--- NOTE | 2017-05-19 12:50 | ER Document Report ---
ED General - General Chief Complaint: Shortness Of Breath Stated Complaint: FATIGUE Time Seen by Provider: 05/19/17 08:20 TRAVEL OUTSIDE OF THE [place] IN LAST 30 DAYS: No - HPI Patient complains to provider of: Multiple complaints Notes: Patient coming in for evaluation of multiple issues. Patient states she has a history of lupus denies any recent travel denies fevers chills nausea vomiting however states that she has had exercise intolerance becoming very fatigued and experiencing dyspnea with walking states significant short of breath even when performing a light activity. States cough is nonproductive. Patient also complains of diffuse joint pain. Patient also states that she has lesions on her vagina and a vaginal discharge. Patient denies any primary CARE states she has not followed up with me by approximately 1 year. Other than lupus patient states that she does smoke cigarettes but has no other medical issues. - Related Data Allergies/Adverse Reactions: naproxen [From Aleve] Allergy (Verified 10/22/16 13:52) Past Medical History - Social History Smoking Status: Current Every Day Smoker Family History: Reviewed & Not Pertinent, Malignancy, Thyroid Disfunction Patient has suicidal ideation: No Patient has homicidal ideation: No Endocrine Medical History: Reports: Hx Hypothyroidism Renal/ Medical History: Denies: Hx Peritoneal Dialysis Past Surgical History: Reports: Hx Breast Surgery, Hx Section - 3, Hx Nose Surgery - Deviated septum, Hx Tonsillectomy - Immunizations Immunizations up to date: Yes Hx Diphtheria, Pertussis, Tetanus Vaccination: Yes Review of Systems - Review of Systems Constitutional: Weakness EENT: No symptoms reported Cardiovascular: No symptoms reported Respiratory: Cough, Short of breath, Wheezing Gastrointestinal: No symptoms reported Genitourinary: No symptoms reported Female Genitourinary: Vaginal discharge Musculoskeletal: No symptoms reported Skin: No symptoms reported Hematologic/Lymphatic: No symptoms reported Neurological/Psychological: No symptoms reported -: Yes All other systems reviewed and negative Physical Exam - Vital signs Vitals: Temp Pulse Resp BP Pulse Ox 97.7 F 129 H 20 117/79 93 05/19/17 06:54 05/19/17 06:54 05/19/17 06:54 05/19/17 06:54 05/19/17 06:54 Interpretation: Normal - General General appearance: Appears well, Alert - HEENT Head: Normocephalic, Atraumatic Eyes: Normal Pupils: PERRL - Respiratory Respiratory status: No respiratory distress Chest status: Nontender Breath sounds: Rhonchi, Wheezing Chest palpation: Normal - Cardiovascular Rhythm: Regular Heart sounds: Normal auscultation Murmur: No - Abdominal Inspection: Normal Distension: No distension Bowel sounds: Normal Tenderness: Nontender Organomegaly: No organomegaly - Genitourinary External exam: Vesicles, Other - On the left border of the labia there is ulceration at the entrance of the vagina and introitus there is also a few ulcerations consistent with more likely genital herpes Speculum exam: Other - Scant white discharge Vaginal bleeding: None Bimanuel exam: Normal - Back Back: Normal, Nontender - Extremities General upper extremity: Normal inspection, Nontender, Normal color, Normal ROM , Normal temperature General lower extremity: Normal inspection, Nontender, Normal color, Normal ROM , Normal temperature, Normal weight bearing. No: Sotero's sign - Neurological Neuro grossly intact: Yes Cognition: Normal Orientation: AAOx4 Shahnaz Coma Scale Eye Opening: Spontaneous [place] Coma Scale Verbal: Oriented Shahnaz Coma Scale Motor: Obeys Commands Shahnaz Coma Scale Total: 15 Speech: Normal Motor strength normal: LUE, RUE, LLE, RLE Sensory: Normal - Psychological Associated symptoms: Normal affect, Normal mood - Skin Skin Temperature: Warm Skin Moisture: Dry Skin Color: Normal Course - Re-evaluation Re-evalutation: 05/19/17 15:23 Patient's laboratory findings showed leukocytosis. CT scan shows diffuse lung disease with leukocytosis and patient's symptoms are well treated for possible pneumonia. 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 I did explain to the patient that this may change her treatment however patient reiterated she does not do any cocaine states that she does do marijuana. We will start the patient on a dose of Levaquin other etiologies could be from her patient's lupus chronic inflammation do not think the patient has influenza at this time she is afebrile. Vaginal examination did show signs of possible genital herpes. We did not perform any HSV swabs. The wet mount this showed bacterial vaginosis. We will start the patient on treatment for this. patient was ambulated around the ER to become very hypoxic with SPO2 in the lower 80s. Therefore patient will meet criteria for admission. Patient's heart rate has improved since receiving IV fluids. Discussed with hospitalist will admit the patient - Vital Signs Vital signs: Temp Pulse Resp BP Pulse Ox 97.7 F 129 H 14 107/55 L 87 L 05/19/17 06:54 05/19/17 06:54 05/19/17 14:00 05/19/17 13:01 05/19/17 15:05 - Laboratory Result Diagrams: 05/19/17 09:47 05/19/17 09:47 Laboratory results interpreted by me: 05/19/17 05/19/17 09:47 09:47 WBC 24.0 H Seg Neuts % (Manual) 84 H Lymphocytes % (Manual) 12 L Abs Neuts (Manual) 20.2 H Calcium 10.5 H AST 54 H ALT 79 H Total Protein 8.9 H Albumin 5.5 H Discharge - Discharge Clinical Impression: Hypoxia, Bacterial vaginosis PNA (pneumonia) Qualifiers: Pneumonia type: due to unspecified organism Laterality: unspecified laterality Lung location: unspecified part of lung Qualified Code(s): J18.9 - Pneumonia, unspecified organism Lupus Qualifiers: Lupus erythematosus form: unspecified Qualified Code(s): L93.0 - Discoid lupus erythematosus Acute respiratory failure Qualifiers: Respiratory failure complication: hypoxia Qualified Code(s): J96.01 - Acute respiratory failure with hypoxia Condition: Good Disposition: ADMITTED INPATIENT Admitting Provider: Hospitalist Guillermo Guevara Unit Admitted: Medical Floor
[2017-05-19] MEDS ORDERED: ONDANSETRON HCL INJ/PF 4 MG/2 ML SDV IV PRN (12:53)
[2017-05-19] MEDS ORDERED: ALBUTEROL SULFATE 0.083% NEB 2.5 MG/3 ML AMPUL NEB PRN (12:53)
[2017-05-19] MEDS ORDERED: ACETAMINOPHEN 325 MG TABLET PO PRN (12:53)
--- NOTE | 2017-05-19 14:58 | PDOC H&P ---
History of Present Illness Admission Date/PCP: May 19, 2017 Patient complains of: Feeling sick for the past couple of months History of Present Illness: ZULAY WILHELM is a 36 year old female presents to emergency roomcomplaining of shortness of breath, productive cough off/on, chills and pain under her rib cage for the past two months. She had been cutting down smoking to four cigarettes per day. Patient admits as to having history of lupus and sarcoidosis but is not being treated because of lack of insurance. When evaluated in ED, she desaturated to 85% on ambulation and required oxygen supplementation. Patient denies doing cocaine but marijuana. Recently she had a vaginal exam and told that that she has some ulcers that were tested and were not herpes. Patient was evaluated thru CTA of chest and do to findings in addition to patient desaturating on ambulation, the hospitalist service was contacted for further management Past Medical History Cardiac Medical History: Reports: None Pulmonary Medical History: Reports: Other - sarcoidosis EENT Medical History: Reports: None Neurological Medical History: Reports: None Endocrine Medical History: Reports: Hypothyroidism Renal/ Medical History: Reports: None Malignancy Medical History: Reports: None GI Medical History: Reports: None Musculoskeltal Medical History: Reports: Other - Lupus Skin Medical History: Reports: None Psychiatric Medical History: Reports: Tobacco Dependency Traumatic Medical History: Reports: None Hematology: Reports: None Infectious Medical History: Reports: None Past Surgical History Past Surgical History: Reports: Section - 3, Tonsillectomy, Other - Bilateral tubal ligation Social History Smoking Status: Current Every Day Smoker Frequency of Alcohol Use: None Hx Recreational Drug Use: Yes Drugs: Marijuana Hx Prescription Drug Abuse: No - Advance Directive Resuscitation Status: Full Code Family History Family History: DM, Malignancy, Thyroid Disfunction Parental Family History Reviewed: Yes Children Family History Reviewed: Yes Sibling(s) Family History Reviewed.: Yes Medication/Allergy Home Medications: Hydrocodone/Acetaminophen [Davis 5-325 Tablet] 1 each PO QID #15 tablet Phenazopyridine HCl [Pyridium 200 mg Tablet] 200 mg PO TID #15 tablet 12/26/15 Sulfamethoxazole/Trimethoprim [Bactrim Ds Tablet] 1 each PO BID #20 tablet 12/25 Ketorolac Tromethamine [Toradol 10 mg Tablet] 10 mg PO Q6HP PRN #20 tablet 04/25 Azithromycin [Zithromax 250 mg Tablet] 250 mg PO ASDIR PRN #6 tablet 04/27/16 Cyclobenzaprine HCl [Flexeril 5 mg Tablet] 5 mg PO TID PRN #15 tablet 05/11/16 Oxycodone HCl/Acetaminophen [Percocet 5-325 mg Tablet] 1 - 2 tab PO ASDIR PRN # 15 tablet 05/11/16 Fluconazole [Diflucan] 150 mg PO ONCE PRN #1 tablet 10/22/16 Allergies/Adverse Reactions: naproxen [From Aleve] Allergy (Verified 10/22/16 13:52) Review of Systems Constitutional: PRESENT: chills. ABSENT: fever(s), headache(s), night sweats, weakness Eyes: ABSENT: visual disturbances Ears: ABSENT: hearing changes Nose, Mouth, and Throat: ABSENT: headache(s), mouth pain, sore throat Cardiovascular: PRESENT: chest pain, dyspnea on exertion. ABSENT: palpitations Respiratory: PRESENT: cough, dyspnea Gastrointestinal: ABSENT: abdominal pain, nausea, vomiting Genitourinary: ABSENT: dysuria, hematuria Musculoskeletal: ABSENT: joint swelling, muscle weakness Neurological: ABSENT: dizziness, focal weakness, frequent falls Physical Exam Vital Signs: Temp Pulse Resp BP Pulse Ox 97.7 F 129 H 23 H 107/55 L 90 L 05/19/17 06:54 05/19/17 06:54 05/19/17 13:01 05/19/17 13:01 05/19/17 13:01 Intake & Output 05/18/17 05/19/17 05/20/17 06:59 06:59 06:59 Weight 93.2 kg General appearance: PRESENT: no acute distress, cooperative, obese Head exam: PRESENT: atraumatic, normocephalic Eye exam: PRESENT: EOMI, PERRLA. ABSENT: nystagmus Ear exam: PRESENT: normal external ear exam Mouth exam: PRESENT: moist Neck exam: PRESENT: full ROM. ABSENT: JVD, lymphadenopathy, tenderness, thyromegaly Respiratory exam: PRESENT: crackles, wheezes Cardiovascular exam: PRESENT: RRR. ABSENT: diastolic murmur, systolic murmur Vascular exam: PRESENT: normal capillary refill GI/Abdominal exam: PRESENT: normal bowel sounds, soft. ABSENT: tenderness Extremities exam: PRESENT: full ROM. ABSENT: clubbing, joint swelling, pedal edema Musculoskeletal exam: PRESENT: ambulatory Neurological exam: PRESENT: alert, awake, oriented to person, oriented to place , oriented to time, oriented to situation, CN II-XII grossly intact Psychiatric exam: PRESENT: appropriate affect, normal mood Skin exam: PRESENT: erythema - noted to cheeks, normal color Results Laboratory Results: 05/19/17 09:47 05/19/17 09:47 05/19/17 05/19/17 05/19/17 06:50 09:47 09:47 WBC 24.0 H RBC 5.13 Hgb 15.5 Hct 45.7 MCV 89 MCH 30.3 MCHC 34.0 RDW 13.8 Plt Count 431 Seg Neutrophils % Not Reportable Lymphocytes % Not Reportable Monocytes % Not Reportable Eosinophils % Not Reportable Basophils % Not Reportable Absolute Neutrophils Not Reportable Absolute Lymphocytes Not Reportable Absolute Monocytes Not Reportable Absolute Eosinophils Not Reportable Absolute Basophils Not Reportable Sodium 144.1 Potassium 3.9 Chloride 99 Carbon Dioxide 28 Anion Gap 17 BUN 14 Creatinine 0.81 Est GFR ( Amer) > 60 Est GFR (Non-Af Amer) > 60 Glucose 83 Calcium 10.5 H Magnesium 2.0 Total Bilirubin 0.7 AST 54 H ALT 79 H Alkaline Phosphatase 124 Total Protein 8.9 H Albumin 5.5 H Urine Color COLORLESS Urine Appearance CLEAR Urine pH 6.0 Ur Specific Burton 1.002 Urine Protein NEGATIVE Urine Glucose (UA) NEGATIVE Urine Ketones NEGATIVE Urine Blood NEGATIVE Urine Nitrite NEGATIVE Ur Leukocyte Esterase NEGATIVE Urine WBC (Auto) 1 Urine RBC (Auto) 1 05/19/17 09:47 Troponin I < 0.012 Impressions: Chest X-Ray 05/19/17 08:20 IMPRESSION: No significant interval change Chest/Abdomen CTA 05/19/17 08:30 IMPRESSION: No evidence for pulmonary embolic disease. Diffuse bilateral ground-glass opacities are identified with a more consolidative process being identified in the right mid lung field. No pleural effusions are identified. Differential possibilities would include pulmonary edema on a cardiogenic or noncardiogenic basis. In light of the patient's clinical history this could be a possible drug reaction. This could also represent a hypersensitivity pneumonitis. The possibility of an infectious process cannot be excluded. Clinical correlation is recommended. Old granulomatous disease. Other findings as noted above. Assessment & Plan - Diagnosis (1) Acute respiratory failure Is this a current diagnosis for this admission?: Yes Plan: Will supplement oxygen and will wean off as tolerated (2) Vaginitis Qualifiers: Chronicity: chronic Qualified Code(s): N76.1 - Subacute and chronic vaginitis Is this a current diagnosis for this admission?: Yes Plan: According to patient's description is appears to be aphthous ulcers. For now will treat with Valtrex and will follow up response (3) Personal history of sarcoidosis Is this a current diagnosis for this admission?: Yes Plan: There are some areas in the CTA of the long that may suggest granulomatous disease. Patient will be placed on IV steroids (4) Lupus Qualifiers: Lupus erythematosus form: unspecified Qualified Code(s): L93.0 - Discoid lupus erythematosus Is this a current diagnosis for this admission?: Yes Plan: Patient will be placed on IV steroids (5) PNA (pneumonia) Qualifiers: Pneumonia type: due to unspecified organism Laterality: unspecified laterality Lung location: unspecified part of lung Qualified Code(s): J18.9 - Pneumonia, unspecified organism Is this a current diagnosis for this admission?: Yes Plan: Differential is quite ample however patient will be placed on Levaquin IV and IV steroids. Will consult pulmonary service since might be dealing with pneumonitis - Time Time Spent: 50 to 70 Minutes Medications reviewed and adjusted accordingly: Yes Anticipated discharge: Home Within: within 72 hours - Inpatient Certification Based on my medical assessment, after consideration of the patient's comorbidities, presenting symptoms, or acuity I expect that the services needed warrant INPATIENT care.: Yes I certify that my determination is in accordance with my understanding of Medicare's requirements for reasonable and necessary INPATIENT services [42 CFR 412.3e].: Yes Medical Necessity: Need Close Monitoring Due to Risk of Patient Decompensation, Need for IV Antibiotics - Oxygen supplementation
[2017-05-19] MEDS ORDERED: METHYLPREDNISOLONE INJ 40 MG/1 ML SDV IV ONE (15:00)
[2017-05-19] MEDS: IPRATROPIUM/ALBUTEROL 0.5-2.5 MG/3 ML AMPUL NEB SCH ×2 (15:04→20:04)
[2017-05-19] MEDS: HEPARIN SOD (PORCINE) 5,000 UNIT/ML 1 ML SYRINGE SUBCUT SCH ×2 (15:05→22:30)
[2017-05-19] MEDS: METHYLPREDNISOLONE INJ 40 MG/1 ML SDV IV SCH (22:29)
[2017-05-19] MEDS: VALACYCLOVIR HCL 500 MG TABLET PO SCH (22:29)
[2017-05-19] MEDS: OXYCODONE-ACETAMINOPHEN 5-325 MG TABLET PO PRN (22:30)
[2017-05-19] MEDS ORDERED: INFLUENZA ADLT QUAD (36MOS+) 2017-18 VAC 0.5 ML SYR IM PRN (23:20)
[2017-05-20] MEDS: METHYLPREDNISOLONE INJ 40 MG/1 ML SDV IV SCH ×3 (06:22→22:55)
[2017-05-20 07:51] LABS: HEMATOCRIT 42.1 % (36.0-47.0); HEMOGLOBIN 14.1 g/dL (12.0-15.5); MEAN CORPUSCULAR HEMOGLOBIN 30.1 pg (27.0-33.4); MEAN CORPUSCULAR HGB CONC 33.4 g/dL (32.0-36.0); MEAN CORPUSCULAR VOLUME 90 fl (80-97); PLATELET COUNT 346 10^3/uL (150-450); RED BLOOD COUNT 4.67 10^6/uL (3.72-5.28); RED CELL DISTRIBUTION WIDTH 13.7 % (11.5-14.0); WHITE BLOOD COUNT 20.6 10^3/uL (4.0-10.5)
[2017-05-20 07:52] LABS: ANION GAP 9 (5-19); BLOOD UREA NITROGEN 10 mg/dL (7-20); CARBON DIOXIDE 28 mmol/L (22-30); CHLORIDE 107 mmol/L (98-107); GLUCOSE 156 mg/dL (75-110); MAGNESIUM 2.3 mg/dL (1.6-2.3); POTASSIUM 4.4 mmol/L (3.6-5.0); SODIUM 144.4 mmol/L (137-145)
[2017-05-20] MEDS: IPRATROPIUM/ALBUTEROL 0.5-2.5 MG/3 ML AMPUL NEB SCH ×3 (08:09→19:42)
[2017-05-20 08:19] LABS: ABSOLUTE MONOCYTES # (MANUAL) 0.2 10^3/uL (0.1-1.4); ABSOLUTE NEUTROPHILS# (MANUAL) 19.4 10^3/uL (1.7-8.2); BAND NEUTROPHILS % (MANUAL) 1 % (3-5); BASOPHILS % (MANUAL) 0 % (0-2); EOSINOPHILS % (MANUAL) 0 % (0-6); LYMPHOCYTES % (MANUAL) 5 % (13-45); MONOCYTES % (MANUAL) 1 % (3-13); RBC MORPHOLOGY COMMENT NORMO-CYTIC/CHROMIC; SEGMENTED NEUTROPHILS % (MAN) 93 % (42-78); TOTAL CELLS COUNTED 100
[2017-05-20 08:20] LABS: PLATELET COMMENT ADEQUATE
[2017-05-20] MEDS: VALACYCLOVIR HCL 500 MG TABLET PO SCH ×2 (10:02→22:55)
[2017-05-20] MEDS: DOCUSATE SODIUM 100 MG CAPSULE PO SCH (10:05)
[2017-05-20] MEDS: HEPARIN SOD (PORCINE) 5,000 UNIT/ML 1 ML SYRINGE SUBCUT SCH ×2 (10:22→18:30)
[2017-05-20] MEDS: OXYCODONE-ACETAMINOPHEN 5-325 MG TABLET PO PRN ×2 (10:22→18:47)
[2017-05-20] MEDS: LEVOFLOXACIN 750 MG/D5W RTU 750 MG/150 ML RTUPB IV SCH (12:22)
--- NOTE | 2017-05-20 18:16 | PDOC PROGRESS REPORT ---
Subjective Progress Note for:: 05/20/17 Subjective:: Patient refers that her breathing is basically the same. Review of systems All organ systems evaluated and negative except as in subjective All significant laboratories and diagnostics have been reviewed Reason For Visit: ACUTE RESPIRATORY FAILURE Physical Exam Vital Signs: Temp Pulse Resp BP Pulse Ox 97.6 F 84 16 106/51 L 94 05/19/17 20:47 05/20/17 08:09 05/20/17 08:09 05/20/17 08:00 05/20/17 08:09 Intake & Output 05/19/17 05/20/17 05/21/17 06:59 06:59 06:59 Intake Total 200 Balance 200 General appearance: PRESENT: cooperative, obese Head exam: PRESENT: atraumatic Eye exam: PRESENT: EOMI, PERRLA Ear exam: PRESENT: normal external ear exam, TM's normal bilaterally Mouth exam: PRESENT: moist Neck exam: PRESENT: full ROM, JVD. ABSENT: lymphadenopathy Respiratory exam: PRESENT: clear to auscultation ney. ABSENT: tachypnea, unlabored Cardiovascular exam: PRESENT: RRR. ABSENT: diastolic murmur, systolic murmur Vascular exam: PRESENT: normal capillary refill GI/Abdominal exam: PRESENT: normal bowel sounds, soft. ABSENT: tenderness Extremities exam: PRESENT: full ROM. ABSENT: joint swelling, pedal edema Musculoskeletal exam: ABSENT: ambulatory, deformity Neurological exam: PRESENT: alert, awake, oriented to person, oriented to time, oriented to situation, CN II-XII grossly intact Psychiatric exam: PRESENT: appropriate affect, normal mood Skin exam: PRESENT: intact, normal color Results Laboratory Results: 05/20/17 06:53 05/20/17 06:53 05/20/17 05/20/17 06:53 06:53 WBC 20.6 H RBC 4.67 Hgb 14.1 Hct 42.1 MCV 90 MCH 30.1 MCHC 33.4 RDW 13.7 Plt Count 346 Seg Neutrophils % Not Reportable Lymphocytes % Not Reportable Monocytes % Not Reportable Eosinophils % Not Reportable Basophils % Not Reportable Absolute Neutrophils Not Reportable Absolute Lymphocytes Not Reportable Absolute Monocytes Not Reportable Absolute Eosinophils Not Reportable Absolute Basophils Not Reportable Sodium 144.4 Potassium 4.4 Chloride 107 Carbon Dioxide 28 Anion Gap 9 BUN 10 Creatinine 0.54 Est GFR ( Amer) > 60 Est GFR (Non-Af Amer) > 60 Glucose 156 H Calcium 10.0 Magnesium 2.3 Impressions: Chest X-Ray 05/19/17 08:20 IMPRESSION: No significant interval change Chest/Abdomen CTA 05/19/17 08:30 IMPRESSION: No evidence for pulmonary embolic disease. Diffuse bilateral ground-glass opacities are identified with a more consolidative process being identified in the right mid lung field. No pleural effusions are identified. Differential possibilities would include pulmonary edema on a cardiogenic or noncardiogenic basis. In light of the patient's clinical history this could be a possible drug reaction. This could also represent a hypersensitivity pneumonitis. The possibility of an infectious process cannot be excluded. Clinical correlation is recommended. Old granulomatous disease. Other findings as noted above. Assessment & Plan - Diagnosis (1) Acute respiratory failure Qualifiers: Respiratory failure complication: hypoxia Qualified Code(s): J96.01 - Acute respiratory failure with hypoxia Is this a current diagnosis for this admission?: Yes Plan: Continue oxygen supplementation and will wean off as tolerated (2) Vaginitis Qualifiers: Chronicity: chronic Qualified Code(s): N76.1 - Subacute and chronic vaginitis Is this a current diagnosis for this admission?: Yes Plan: According to patient's description is appears to be aphthous ulcers. Continue Valtrex (3) Personal history of sarcoidosis Is this a current diagnosis for this admission?: Yes Plan: There are some areas in the CTA of the long that may suggest granulomatous disease. Continue IV steroids. Dr. Gonzalez consulted (4) Lupus Qualifiers: Lupus erythematosus form: unspecified Qualified Code(s): L93.0 - Discoid lupus erythematosus Is this a current diagnosis for this admission?: Yes Plan: Continue IV steroids (5) PNA (pneumonia) Qualifiers: Pneumonia type: due to unspecified organism Laterality: unspecified laterality Lung location: unspecified part of lung Qualified Code(s): J18.9 - Pneumonia, unspecified organism Is this a current diagnosis for this admission?: Yes Plan: Differential is quite ample however patient. Continue Levaquin IV and IV steroids. Dr. Gonzalez consulted - Time Time Spent with patient: 15-24 minutes Medications reviewed and adjusted accordingly: Yes Anticipated discharge: Home Within: within 72 hours - Inpatient Certification Based on my medical assessment, after consideration of the patient's comorbidities, presenting symptoms, or acuity I expect that the services needed warrant INPATIENT care.: Yes I certify that my determination is in accordance with my understanding of Medicare's requirements for reasonable and necessary INPATIENT services [42 CFR 412.3e].: Yes Medical Necessity: Need for Nebulizer Therapy and Monitoring of Response, Need for IV Antibiotics
[2017-05-20] MEDS: ZOLPIDEM TARTRATE 5 MG TABLET PO PRN (23:17)
[2017-05-21] MEDS: OXYCODONE-ACETAMINOPHEN 5-325 MG TABLET PO PRN ×4 (00:38→20:34)
[2017-05-21] MEDS: HEPARIN SOD (PORCINE) 5,000 UNIT/ML 1 ML SYRINGE SUBCUT SCH ×3 (05:26→18:24)
[2017-05-21] MEDS: METHYLPREDNISOLONE INJ 40 MG/1 ML SDV IV SCH ×3 (05:27→21:53)
[2017-05-21] MEDS: IPRATROPIUM/ALBUTEROL 0.5-2.5 MG/3 ML AMPUL NEB SCH ×3 (07:49→20:10)
[2017-05-21] MEDS: VALACYCLOVIR HCL 500 MG TABLET PO SCH ×2 (10:10→21:53)
[2017-05-21] MEDS: DOCUSATE SODIUM 100 MG CAPSULE PO SCH (10:11)
[2017-05-21] MEDS: LEVOFLOXACIN 750 MG/D5W RTU 750 MG/150 ML RTUPB IV SCH (11:58)
--- NOTE | 2017-05-21 15:56 | PDOC PROGRESS REPORT ---
Subjective Progress Note for:: 05/21/17 Subjective:: 36-year-old female who presented to the emergency room on May 19 complaining of shortness of breath cough chills and rib cage pain for the past 2 months. She is a smoker. She has a history of Cocaine use Lupus Sarcoidosis Mental herpes These have not been treated due to a lack of insurance. In the emergency room she was found to have hypoxia with sats in the 80s on ambulation. Feels somewhat better. No complaints at present. He does not have a clerk rating or chief program officer that she follows with. Reason For Visit: ACUTE RESPIRATORY FAILURE Physical Exam Vital Signs: Temp Pulse Resp BP Pulse Ox 97.5 F 71 17 118/81 100 05/21/17 08:34 05/21/17 08:34 05/21/17 08:34 05/21/17 08:34 05/21/17 08:34 Intake & Output 05/20/17 05/21/17 05/22/17 06:59 06:59 06:59 Intake Total 200 860 Balance 200 860 Additional comments: female sitting up in bed not in acute distress Lungs: Clear to auscultation bilaterally decreased breath sounds bilateral bases no wheezing or crackles heard normal respiratory effort Cardiac: S1-S2 regular no peripheral edema no cyanosis no calf tenderness Skin: Warm and dry Abdomen: Soft, obese, no focal tenderness, normal bowel sounds Results Laboratory Results: 05/20/17 06:53 05/20/17 06:53 Impressions: Chest X-Ray 05/19/17 08:20 IMPRESSION: No significant interval change Chest/Abdomen CTA 05/19/17 08:30 IMPRESSION: No evidence for pulmonary embolic disease. Diffuse bilateral ground-glass opacities are identified with a more consolidative process being identified in the right mid lung field. No pleural effusions are identified. Differential possibilities would include pulmonary edema on a cardiogenic or noncardiogenic basis. In light of the patient's clinical history this could be a possible drug reaction. This could also represent a hypersensitivity pneumonitis. The possibility of an infectious process cannot be excluded. Clinical correlation is recommended. Old granulomatous disease. Other findings as noted above. Assessment & Plan - Diagnosis (1) Acute respiratory failure Qualifiers: Respiratory failure complication: hypoxia Qualified Code(s): J96.01 - Acute respiratory failure with hypoxia Is this a current diagnosis for this admission?: Yes Plan: Continue supplemental oxygen and steroids and antibiotics. This is multifactorial due to pneumonia or lupus and prior history of sarcoid. Pulmonology is following the patient. (2) PNA (pneumonia) Qualifiers: Pneumonia type: due to unspecified organism Laterality: unspecified laterality Lung location: unspecified part of lung Qualified Code(s): J18.9 - Pneumonia, unspecified organism Is this a current diagnosis for this admission?: Yes Plan: See above (3) Lupus Qualifiers: Lupus erythematosus form: unspecified Qualified Code(s): L93.0 - Discoid lupus erythematosus Is this a current diagnosis for this admission?: Yes Plan: See above (4) Sarcoidosis Is this a current diagnosis for this admission?: Yes Plan: See above (5) Genital herpes Is this a current diagnosis for this admission?: Yes Plan: Valtrex - Time Time Spent with patient: 35 or more minutes
[2017-05-21] MEDS: LACTOBACILLUS ACIDOPHILUS 250 MG TAB PO SCH (18:12)
[2017-05-21] MEDS: LANSOPRAZOLE 30 MG TAB.RAP.DR PO SCH (18:12)
[2017-05-21] MEDS: ZOLPIDEM TARTRATE 5 MG TABLET PO PRN (22:01)
[2017-05-22] MEDS: HEPARIN SOD (PORCINE) 5,000 UNIT/ML 1 ML SYRINGE SUBCUT SCH ×2 (03:01→09:57)
[2017-05-22] MEDS: LANSOPRAZOLE 30 MG TAB.RAP.DR PO SCH ×2 (05:55→17:21)
[2017-05-22] MEDS: METHYLPREDNISOLONE INJ 40 MG/1 ML SDV IV SCH (05:55)
[2017-05-22] MEDS: IPRATROPIUM/ALBUTEROL 0.5-2.5 MG/3 ML AMPUL NEB SCH ×3 (08:15→19:19)
[2017-05-22] MEDS: OXYCODONE-ACETAMINOPHEN 5-325 MG TABLET PO PRN ×3 (08:43→21:49)
[2017-05-22] MEDS: DOCUSATE SODIUM 100 MG CAPSULE PO SCH (09:59)
[2017-05-22] MEDS: LACTOBACILLUS ACIDOPHILUS 250 MG TAB PO SCH ×2 (09:59→17:22)
[2017-05-22] MEDS: VALACYCLOVIR HCL 500 MG TABLET PO SCH ×2 (10:01→21:49)
--- NOTE | 2017-05-22 10:40 | PDOC PROGRESS REPORT ---
Subjective Progress Note for:: 05/22/17 Subjective:: 36-year-old female who presented to the emergency room on May 19 complaining of shortness of breath cough chills and rib cage pain for the past 2 months. She is a smoker. She has a history of Past medical history: Cocaine use Lupus Sarcoidosis In the emergency room she was found to have hypoxia with sats in the 80s on ambulation. Feels somewhat better. No complaints at present. We are awaiting pulmonology consultation for assistance in the management of this complicated case. She had moved to the area approximately a year ago and has not had any medical appointments. Reason For Visit: ACUTE RESPIRATORY FAILURE Physical Exam Vital Signs: Temp Pulse Resp BP Pulse Ox 97.3 F 61 18 138/96 H 100 05/22/17 04:11 05/22/17 04:11 05/22/17 04:00 05/22/17 04:11 05/22/17 04:11 Intake & Output 05/21/17 05/22/17 05/23/17 06:59 06:59 06:59 Intake Total 860 1150 Balance 860 1150 Weight 93.2 kg 94.1 kg Additional comments: female sitting up in bed not in acute distress Lungs: Normal respiratory effort, scattered rhonchi, no wheezing Cardiac: S1-S2 regular no peripheral edema no cyanosis no calf tenderness Skin: Warm and dry Abdomen: Soft, obese, no focal tenderness, normal bowel sounds Results Laboratory Results: 05/20/17 06:53 05/20/17 06:53 Impressions: Chest X-Ray 05/19/17 08:20 IMPRESSION: No significant interval change Chest/Abdomen CTA 05/19/17 08:30 IMPRESSION: No evidence for pulmonary embolic disease. Diffuse bilateral ground-glass opacities are identified with a more consolidative process being identified in the right mid lung field. No pleural effusions are identified. Differential possibilities would include pulmonary edema on a cardiogenic or noncardiogenic basis. In light of the patient's clinical history this could be a possible drug reaction. This could also represent a hypersensitivity pneumonitis. The possibility of an infectious process cannot be excluded. Clinical correlation is recommended. Old granulomatous disease. Other findings as noted above. Assessment & Plan - Diagnosis (1) Acute respiratory failure Qualifiers: Respiratory failure complication: hypoxia Qualified Code(s): J96.01 - Acute respiratory failure with hypoxia Is this a current diagnosis for this admission?: Yes Plan: Continue supplemental oxygen and steroids and antibiotics. This is multifactorial due to pneumonia or lupus and prior history of sarcoid. Awaiting pulmonology evaluation. (2) PNA (pneumonia) Qualifiers: Pneumonia type: due to unspecified organism Laterality: unspecified laterality Lung location: unspecified part of lung Qualified Code(s): J18.9 - Pneumonia, unspecified organism Is this a current diagnosis for this admission?: Yes Plan: See above (3) Lupus Qualifiers: Lupus erythematosus form: unspecified Qualified Code(s): L93.0 - Discoid lupus erythematosus Is this a current diagnosis for this admission?: Yes Plan: See above (4) Sarcoidosis Is this a current diagnosis for this admission?: Yes Plan: See above (5) Genital herpes Is this a current diagnosis for this admission?: Yes Plan: Valtrex - Time Time Spent with patient: 25-34 minutes
[2017-05-22] MEDS: LEVOFLOXACIN 750 MG/D5W RTU 750 MG/150 ML RTUPB IV SCH (13:06)
[2017-05-22] MEDS ORDERED: LEVOFLOXACIN 500 MG TABLET PO ONE (17:00)
[2017-05-22] MEDS: PREDNISONE 20 MG TABLET PO SCH (17:21)
[2017-05-22] MEDS: ZOLPIDEM TARTRATE 5 MG TABLET PO PRN (23:00)
[2017-05-23] MEDS: OXYCODONE-ACETAMINOPHEN 5-325 MG TABLET PO PRN ×3 (04:18→19:01)
[2017-05-23] MEDS: LANSOPRAZOLE 30 MG TAB.RAP.DR PO SCH ×2 (05:58→18:55)
[2017-05-23 07:31] LABS: HEMATOCRIT 39.9 % (36.0-47.0); HEMOGLOBIN 13.5 g/dL (12.0-15.5); MEAN CORPUSCULAR HEMOGLOBIN 30.2 pg (27.0-33.4); MEAN CORPUSCULAR HGB CONC 33.7 g/dL (32.0-36.0); MEAN CORPUSCULAR VOLUME 90 fl (80-97); PLATELET COUNT 327 10^3/uL (150-450); RED BLOOD COUNT 4.46 10^6/uL (3.72-5.28); RED CELL DISTRIBUTION WIDTH 13.5 % (11.5-14.0); WHITE BLOOD COUNT 17.2 10^3/uL (4.0-10.5)
[2017-05-23 07:32] LABS: BILIRUBIN,DIRECT 0.3 mg/dL (0.0-0.4); BILIRUBIN,TOTAL 0.3 mg/dL (0.2-1.3)
[2017-05-23 07:50] LABS: ALANINE AMINOTRANSFERASE 41 U/L (9-52); ALBUMIN 4.1 g/dL (3.5-5.0); ALKALINE PHOSPHATASE 101 U/L (38-126); ANION GAP 11 (5-19); ASPARTATE AMINO TRANSFERASE 49 U/L (14-36); BLOOD UREA NITROGEN 13 mg/dL (7-20); CALCIUM 9.4 mg/dL (8.4-10.2); CARBON DIOXIDE 27 mmol/L (22-30); CHLORIDE 105 mmol/L (98-107); GLUCOSE 160 mg/dL (75-110); POTASSIUM 3.9 mmol/L (3.6-5.0); SODIUM 143.3 mmol/L (137-145); TOTAL PROTEIN 6.9 g/dL (6.3-8.2)
[2017-05-23] MEDS: IPRATROPIUM/ALBUTEROL 0.5-2.5 MG/3 ML AMPUL NEB SCH ×3 (08:27→19:45)
[2017-05-23] MEDS: LACTOBACILLUS ACIDOPHILUS 250 MG TAB PO SCH ×2 (09:43→18:56)
[2017-05-23] MEDS: DOCUSATE SODIUM 100 MG CAPSULE PO SCH (09:44)
[2017-05-23] MEDS: VALACYCLOVIR HCL 500 MG TABLET PO SCH ×2 (09:44→21:19)
[2017-05-23] MEDS: LEVOFLOXACIN 750 MG TABLET PO SCH (09:44)
--- NOTE | 2017-05-23 17:54 | PDOC PROGRESS REPORT ---
Subjective Progress Note for:: 05/23/17 Subjective:: Patient states she is doing well She is somewhat dyspneic when she walks but no chest pain no fever no productive cough Reason For Visit: ACUTE RESPIRATORY FAILURE Physical Exam Vital Signs: Temp Pulse Resp BP Pulse Ox 97.4 F 101 H 16 130/96 H 97 05/23/17 16:18 18 16:18 05/23/17 16:18 05/23/17 16:18 05/23/17 16:18 Intake & Output 05/22/17 05/23/17 05/24/17 00:59 00:59 00:59 Intake Total 1150 6950 4490 Balance 1150 6950 4490 Weight 93.2 kg 94.1 kg 114 kg General appearance: PRESENT: no acute distress Head exam: PRESENT: atraumatic, normocephalic Eye exam: PRESENT: conjunctival injection Respiratory exam: PRESENT: clear to auscultation ney. ABSENT: rales, rhonchi, wheezes Cardiovascular exam: PRESENT: RRR. ABSENT: diastolic murmur, rubs, systolic murmur Pulses: PRESENT: normal dorsalis pedis pul GI/Abdominal exam: PRESENT: normal bowel sounds, soft. ABSENT: distended, guarding, mass, organolmegaly, rebound, tenderness Results Laboratory Results: 05/23/17 07:02 05/23/17 07:02 05/23/17 05/23/17 07:02 07:02 WBC 17.2 H RBC 4.46 Hgb 13.5 Hct 39.9 MCV 90 MCH 30.2 MCHC 33.7 RDW 13.5 Plt Count 327 Sodium 143.3 Potassium 3.9 Chloride 105 Carbon Dioxide 27 Anion Gap 11 BUN 13 Creatinine 0.65 Est GFR ( Amer) > 60 Est GFR (Non-Af Amer) > 60 Glucose 160 H Calcium 9.4 Magnesium 2.0 Total Bilirubin 0.3 AST 49 H ALT 41 Alkaline Phosphatase 101 Total Protein 6.9 Albumin 4.1 Impressions: Chest X-Ray 05/19/17 08:20 IMPRESSION: No significant interval change Chest/Abdomen CTA 05/19/17 08:30 IMPRESSION: No evidence for pulmonary embolic disease. Diffuse bilateral ground-glass opacities are identified with a more consolidative process being identified in the right mid lung field. No pleural effusions are identified. Differential possibilities would include pulmonary edema on a cardiogenic or noncardiogenic basis. In light of the patient's clinical history this could be a possible drug reaction. This could also represent a hypersensitivity pneumonitis. The possibility of an infectious process cannot be excluded. Clinical correlation is recommended. Old granulomatous disease. Other findings as noted above. Assessment & Plan - Diagnosis (2) Lupus Qualifiers: Lupus erythematosus form: unspecified Qualified Code(s): L93.0 - Discoid lupus erythematosus Is this a current diagnosis for this admission?: Yes (3) PNA (pneumonia) Qualifiers: Pneumonia type: due to unspecified organism Laterality: unspecified laterality Lung location: unspecified part of lung Qualified Code(s): J18.9 - Pneumonia, unspecified organism Is this a current diagnosis for this admission?: Yes (4) Personal history of sarcoidosis Is this a current diagnosis for this admission?: Yes - Time Time Spent with patient: Patient is clinically improved ; we will evaluate her for discharge in a.m.
[2017-05-23] MEDS: PREDNISONE 20 MG TABLET PO SCH (18:56)
[2017-05-24] MEDS: ZOLPIDEM TARTRATE 5 MG TABLET PO PRN ×2 (01:11→22:01)
[2017-05-24] MEDS: OXYCODONE-ACETAMINOPHEN 5-325 MG TABLET PO PRN ×3 (01:11→22:02)
[2017-05-24] MEDS: LANSOPRAZOLE 30 MG TAB.RAP.DR PO SCH ×2 (05:26→17:15)
[2017-05-24] MEDS: IPRATROPIUM/ALBUTEROL 0.5-2.5 MG/3 ML AMPUL NEB SCH ×3 (08:47→20:27)
[2017-05-24] MEDS: LACTOBACILLUS ACIDOPHILUS 250 MG TAB PO SCH ×2 (09:19→17:15)
[2017-05-24] MEDS: VALACYCLOVIR HCL 500 MG TABLET PO SCH (09:19)
[2017-05-24] MEDS: DOCUSATE SODIUM 100 MG CAPSULE PO SCH (09:20)
[2017-05-24] MEDS: LEVOFLOXACIN 750 MG TABLET PO SCH (09:20)
[2017-05-24] MEDS ORDERED: CEFEPIME 2 GM/D5W RTU 2 GM/50 ML RTUPB IV SCH (17:30)
[2017-05-24] MEDS ORDERED: VANCOMYCIN HCL 0 MG in DEXTROSE 5%-WATER 250 ML IV NR (18:00)
--- NOTE | 2017-05-24 18:01 | PDOC PROGRESS REPORT ---
Subjective Progress Note for:: 05/24/17 Subjective:: Patient is still extremely short of breath No fever no chills her white count has decreased to 17,000 She still hypoxemic on room air No pleuritic chest pain Reason For Visit: ACUTE RESPIRATORY FAILURE Physical Exam Vital Signs: Temp Pulse Resp BP Pulse Ox 97.5 F 98 18 131/85 H 99 05/24/17 16:50 05/24/17 16:50 05/24/17 16:50 05/24/17 16:50 05/24/17 16:50 Intake & Output 05/23/17 05/24/17 05/25/17 00:59 00:59 00:59 Intake Total 6950 9290 Balance 6950 9290 Weight 94.1 kg 114 kg 114.1 kg General appearance: PRESENT: Looks ill in no respiratory distress Head exam: PRESENT: atraumatic, normocephalic Eye exam: PRESENT: conjunctival injection Respiratory exam: PRESENT: clear to auscultation ney. ABSENT: rales, rhonchi, wheezes Cardiovascular exam: PRESENT: RRR. ABSENT: diastolic murmur, rubs, systolic murmur Pulses: PRESENT: normal dorsalis pedis pul GI/Abdominal exam: PRESENT: normal bowel sounds, soft. ABSENT: distended, guarding, mass, organolmegaly, rebound, tendernes Neuro 2 through 12 intact no sensory nor motor deficits Results Laboratory Results: 05/23/17 07:02 05/23/17 07:02 Impressions: Chest X-Ray 05/19/17 08:20 IMPRESSION: No significant interval change Chest/Abdomen CTA 05/19/17 08:30 IMPRESSION: No evidence for pulmonary embolic disease. Diffuse bilateral ground-glass opacities are identified with a more consolidative process being identified in the right mid lung field. No pleural effusions are identified. Differential possibilities would include pulmonary edema on a cardiogenic or noncardiogenic basis. In light of the patient's clinical history this could be a possible drug reaction. This could also represent a hypersensitivity pneumonitis. The possibility of an infectious process cannot be excluded. Clinical correlation is recommended. Old granulomatous disease. Other findings as noted above. Assessment & Plan - Diagnosis (2) Lupus Qualifiers: Lupus erythematosus form: unspecified Qualified Code(s): L93.0 - Discoid lupus erythematosus Is this a current diagnosis for this admission?: Yes (3) PNA (pneumonia) Qualifiers: Pneumonia type: due to unspecified organism Laterality: unspecified laterality Lung location: unspecified part of lung Qualified Code(s): J18.9 - Pneumonia, unspecified organism Is this a current diagnosis for this admission?: Yes (4) Personal history of sarcoidosis Is this a current diagnosis for this admission?: Yes - Time Time Spent with patient: Patient has now been treated with conventional treatment with Levaquin for 2 3 days without improvement We will broaden spectrum of antibiotics at this time and treat the patient as hospital-acquired pneumonia We will add cefepime and vancomycin Repeat chest x-ray in the morning Repeat labs We will decrease steroids Time Spent with patient: 25-34 minutes
[2017-05-24] MEDS ORDERED: PREDNISONE 20 MG TABLET PO SCH (22:00)
[2017-05-24] MEDS ORDERED: CEFEPIME HCL 2 GM in DEXTROSE 5%-WATER 50 ML IV SCH (22:00)
[2017-05-24] MEDS: CEFEPIME HCL 2 GM in DEXTROSE 5%-WATER 100 ML IV SCH (22:53)
[2017-05-24] MEDS: VANCOMYCIN HCL 1,500 MG in DEXTROSE 5%-WATER 250 ML IV SCH (23:55)
[2017-05-25] MEDS: LANSOPRAZOLE 30 MG TAB.RAP.DR PO SCH ×2 (05:12→16:28)
[2017-05-25] MEDS: VANCOMYCIN HCL 1,500 MG in DEXTROSE 5%-WATER 250 ML IV SCH (06:37)
[2017-05-25] MEDS: OXYCODONE-ACETAMINOPHEN 5-325 MG TABLET PO PRN ×3 (06:44→22:59)
[2017-05-25 07:38] LABS: HEMATOCRIT 44.4 % (36.0-47.0); HEMOGLOBIN 15.1 g/dL (12.0-15.5); MEAN CORPUSCULAR HEMOGLOBIN 30.4 pg (27.0-33.4); MEAN CORPUSCULAR HGB CONC 34.2 g/dL (32.0-36.0); MEAN CORPUSCULAR VOLUME 89 fl (80-97); PLATELET COUNT 375 10^3/uL (150-450); RED BLOOD COUNT 4.98 10^6/uL (3.72-5.28); RED CELL DISTRIBUTION WIDTH 13.8 % (11.5-14.0); WHITE BLOOD COUNT 24.3 10^3/uL (4.0-10.5)
[2017-05-25 07:44] LABS: ANION GAP 13 (5-19); BLOOD UREA NITROGEN 13 mg/dL (7-20); CALCIUM 9.9 mg/dL (8.4-10.2); CARBON DIOXIDE 23 mmol/L (22-30); CHLORIDE 105 mmol/L (98-107); GLUCOSE 161 mg/dL (75-110); POTASSIUM 4.8 mmol/L (3.6-5.0); SODIUM 141.3 mmol/L (137-145)
[2017-05-25] MEDS: IPRATROPIUM/ALBUTEROL 0.5-2.5 MG/3 ML AMPUL NEB SCH ×3 (07:53→20:02)
[2017-05-25 08:15] LABS: ABSOLUTE LYMPHOCYTES# (MANUAL) 2.4 10^3/uL (0.5-4.7); ABSOLUTE MONOCYTES # (MANUAL) 1.5 10^3/uL (0.1-1.4); ABSOLUTE NEUTROPHILS# (MANUAL) 20.4 10^3/uL (1.7-8.2); BAND NEUTROPHILS % (MANUAL) 3 % (3-5); BASOPHILS % (MANUAL) 0 % (0-2); EOSINOPHILS % (MANUAL) 0 % (0-6); LYMPHOCYTES % (MANUAL) 8 % (13-45); METAMYELOCYTES % (MANUAL) 2 % (0); MONOCYTES % (MANUAL) 6 % (3-13); SEGMENTED NEUTROPHILS % (MAN) 79 % (42-78); TOTAL CELLS COUNTED 100
[2017-05-25 08:17] LABS: PLATELET COMMENT ADEQUATE; POLYCHROMASIA 1+
[2017-05-25] MEDS: CEFEPIME HCL 2 GM in DEXTROSE 5%-WATER 100 ML IV SCH (09:48)
[2017-05-25] MEDS: DOCUSATE SODIUM 100 MG CAPSULE PO SCH (09:48)
[2017-05-25] MEDS: LACTOBACILLUS ACIDOPHILUS 250 MG TAB PO SCH ×2 (09:48→18:29)
[2017-05-25] MEDS: LEVOFLOXACIN 750 MG TABLET PO SCH (09:48)
--- NOTE | 2017-05-25 09:55 | RADIOLOGY REPORT (SQ) ---
EXAM DESCRIPTION: CHEST SINGLE VIEW COMPLETED DATE/TIME: 05/25/2017 9:41 am REASON FOR STUDY: SOB COMPARISON: 05/19/2017 NUMBER OF VIEWS: One view. TECHNIQUE: Single frontal radiographic view of the chest acquired. LIMITATIONS: None. FINDINGS: LUNGS AND PLEURA: Unchanged right lower lobe pulmonary nodule. Diffuse ground-glass atten uation. MEDIASTINUM AND HILAR STRUCTURES: No masses. Contour normal. HEART AND VASCULAR STRUCTURES: Heart enlarged without failure. Normal vasculature. BONES: No acute findings. HARDWARE: None in the chest. OTHER: No other significant finding. IMPRESSION: Chronic interstitial changes. Stable right lower lobe pulmonary nodule. TECHNICAL DOCUMENTATION: JOB ID: [id number] [employer]- All Rights Reserved
--- NOTE | 2017-05-25 14:11 | PDOC PROGRESS REPORT ---
Subjective Progress Note for:: 05/25/17 Subjective:: Patient is seen on rounds. She is up ambulating around room off her oxygen. She appears in no acute distress. She denies any cough or dyspnea. Chest xray shows chronic interstitial changes at the right base. No significant infiltrates. She denies any nausea, vomiting or abdominal pain. She denies any diarrhea. She denies any fevers or chills overnight. She denies any significant arthralgias or myalgias. Remaining review of systems are negative Reason For Visit: ACUTE RESPIRATORY FAILURE Physical Exam Vital Signs: Temp Pulse Resp BP Pulse Ox 97.4 F 120 H 16 126/76 H 97 05/25/17 05:07 05/25/17 13:34 05/25/17 13:34 05/25/17 05:07 05/25/17 13:34 Intake & Output 05/24/17 05/25/17 05/26/17 06:59 06:59 06:59 Intake Total 4800 2000 Balance 4800 2000 Weight 114.1 kg 114.9 kg 114.9 kg General appearance: PRESENT: no acute distress, morbidly obese, well-developed, well-nourished Head exam: PRESENT: atraumatic, normocephalic Eye exam: PRESENT: conjunctiva pink, EOMI, PERRLA. ABSENT: scleral icterus Ear exam: PRESENT: normal external ear exam Mouth exam: PRESENT: moist, tongue midline Neck exam: ABSENT: carotid bruit, JVD, lymphadenopathy, thyromegaly Respiratory exam: PRESENT: crackles, symmetrical, unlabored Cardiovascular exam: PRESENT: RRR. ABSENT: diastolic murmur, rubs, systolic murmur Pulses: PRESENT: normal carotid pulses Vascular exam: PRESENT: normal capillary refill GI/Abdominal exam: PRESENT: normal bowel sounds, soft. ABSENT: distended, guarding, mass, organolmegaly, rebound, tenderness Rectal exam: PRESENT: deferred Extremities exam: PRESENT: full ROM. ABSENT: calf tenderness, clubbing, pedal edema Musculoskeletal exam: PRESENT: ambulatory Neurological exam: PRESENT: alert, awake, oriented to person, oriented to place , oriented to time, oriented to situation, CN II-XII grossly intact. ABSENT: motor sensory deficit Skin exam: PRESENT: dry, intact, warm. ABSENT: cyanosis, rash Results Laboratory Results: 05/25/17 07:12 05/25/17 07:12 05/25/17 05/25/17 07:12 07:12 WBC 24.3 H RBC 4.98 Hgb 15.1 Hct 44.4 MCV 89 MCH 30.4 MCHC 34.2 RDW 13.8 Plt Count 375 Seg Neutrophils % Not Reportable Lymphocytes % Not Reportable Monocytes % Not Reportable Eosinophils % Not Reportable Basophils % Not Reportable Absolute Neutrophils Not Reportable Absolute Lymphocytes Not Reportable Absolute Monocytes Not Reportable Absolute Eosinophils Not Reportable Absolute Basophils Not Reportable Sodium 141.3 Potassium 4.8 Chloride 105 Carbon Dioxide 23 Anion Gap 13 BUN 13 Creatinine 0.54 Est GFR ( Amer) > 60 Est GFR (Non-Af Amer) > 60 Glucose 161 H Calcium 9.9 Impressions: Chest/Abdomen CTA 05/19/17 08:30 IMPRESSION: No evidence for pulmonary embolic disease. Diffuse bilateral ground-glass opacities are identified with a more consolidative process being identified in the right mid lung field. No pleural effusions are identified. Differential possibilities would include pulmonary edema on a cardiogenic or noncardiogenic basis. In light of the patient's clinical history this could be a possible drug reaction. This could also represent a hypersensitivity pneumonitis. The possibility of an infectious process cannot be excluded. Clinical correlation is recommended. Old granulomatous disease. Other findings as noted above. Chest X-Ray 05/25/17 08:00 IMPRESSION: Chronic interstitial changes. Stable right lower lobe pulmonary nodule. Assessment & Plan - Diagnosis (1) Acute respiratory failure Qualifiers: Respiratory failure complication: hypoxia Qualified Code(s): J96.01 - Acute respiratory failure with hypoxia Is this a current diagnosis for this admission?: Yes Plan: Patient is still requiring 1 liter of oxygen. There is no new changes on her chest xray, certainly no hospital acquired pneumonia. She has no cough or fever. Will descalate antibiotics. Add incentive spirometer and flutter valve. OOB and ambulate. (3) PNA (pneumonia) Qualifiers: Pneumonia type: due to unspecified organism Laterality: right Lung location: lower lobe of lung Qualified Code(s): J18.1 - Lobar pneumonia, unspecified organism Is this a current diagnosis for this admission?: Yes Plan: Blood cultures are negative. No sputum. Will descalate therapy .Prepare for discharge (4) Sarcoidosis Is this a current diagnosis for this admission?: Yes Plan: Patient has no definite diagnosis of sarcoidosis with tissue biopsy. Will need continued follow up as an outpatient - Time Time Spent with patient: 25-34 minutes Medications reviewed and adjusted accordingly: Yes Anticipated discharge: Home Within: within 48 hours
[2017-05-25] MEDS ORDERED: PREDNISONE 20 MG TABLET PO SCH (22:00)
[2017-05-26] MEDS: ZOLPIDEM TARTRATE 5 MG TABLET PO PRN (01:10)
[2017-05-26] MEDS: LANSOPRAZOLE 30 MG TAB.RAP.DR PO SCH (06:09)
[2017-05-26] MEDS: IPRATROPIUM/ALBUTEROL 0.5-2.5 MG/3 ML AMPUL NEB SCH ×2 (08:41→14:11)
[2017-05-26] MEDS: LACTOBACILLUS ACIDOPHILUS 250 MG TAB PO SCH (09:19)
[2017-05-26] MEDS: OXYCODONE-ACETAMINOPHEN 5-325 MG TABLET PO PRN (09:20)
[2017-05-26] MEDS: DOCUSATE SODIUM 100 MG CAPSULE PO SCH (09:20)
--- NOTE | 2017-05-26 12:45 | PDOC DISCHARGE SUMMARY ---
General - Admit/Disc Date/PCP Admission Date/Primary Care Provider: 05/19/17 15:30 She has no physician. We are setting her up at the [facility] at discharge Discharge Date: 05/26/17 - Discharge Diagnosis (1) Acute respiratory failure Is this a current diagnosis for this admission?: Yes Summary: The patient had acute hypoxic respiratory failure likely secondary to an underlying pneumonia. Patient also has sarcoidosis. She would benefit from pulmonology referral as an outpatient. She has been weaned off of her oxygen on the day of discharge. (2) PNA (pneumonia) Is this a current diagnosis for this admission?: Yes Summary: Her CT scan of her chest could not rule out an underlying pneumonia. She has significant groundglass opacities noted throughout both lung soto. There was a possible consolidation. She will complete a course of p.o. Levaquin as an outpatient. She will follow-up at the [facility]. Concerns were for gram positives and atypicals. (3) Sarcoidosis Is this a current diagnosis for this admission?: Yes Summary: She will need follow-up as an outpatient. Overall she is stable. She has no insurance at this point. We are going to set her up with the [facility] at discharge and hopefully they can refer her to pulmonology as an outpatient. - Additional Information Resuscitation Status: Full Code Discharge Diet: Regular Discharge Activity: Activity As Tolerated, Balance Activity w/Rest, Slowly Increase Activity Prescriptions: Prednisone [Deltasone 20 mg Tablet] 10 mg PO QHS #21 tablet Levofloxacin [Levaquin 750 mg Tablet] 750 mg PO DAILY #7 tab Home Medications: Levothyroxine Sodium [Synthroid] 125 mcg PO Q6AM 05/19/17 Levofloxacin [Levaquin 750 mg Tablet] 750 mg PO DAILY #7 tab 05/26/17 Prednisone [Deltasone 20 mg Tablet] 10 mg PO QHS #21 tablet 05/26/17 History of Present Illness History of Present Illness: ZULAY WILHELM is a 37 year old female who presented to the emergency room with shortness of breath. Hospital Course Hospital Course: The patient is a 36-year-old female who presented to the emergency room with shortness of breath and cough. Her cough had been present and worsening for the past 2 months. She had been cutting down smoking to 4 cigarettes a day. The patient does have a history of sarcoidosis but is not being treated due to lack of insurance. In the emergency room she was found to be hypoxic. She had a CT angiography of the chest and there were concerns for an underlying pneumonia. She was admitted to the hospital and started on IV antibiotics. She was quite slow to improve. Over the course of the hospitalization she did get back to her baseline. On the day of discharge she has been totally weaned off of her oxygen. It is felt that she can safely be discharged home. We are going to try to set her up at the [facility] at discharge. At this point maximum hospital benefit has been reached. The patient will be discharged home today in stable condition Physical Exam Vital Signs: Temp Pulse Resp BP Pulse Ox 97.8 F 82 16 127/82 H 100 05/26/17 09:06 05/26/17 09:06 05/26/17 09:06 05/26/17 09:06 05/26/17 09:06 Intake & Output 05/25/17 05/26/17 05/27/17 06:59 06:59 06:59 Intake Total 1999 1000 Balance 2000 1000 Weight 114.9 kg 115 kg General appearance: PRESENT: no acute distress, well-developed, well-nourished Head exam: PRESENT: atraumatic, normocephalic Eye exam: PRESENT: conjunctiva pink, EOMI, PERRLA. ABSENT: scleral icterus Mouth exam: PRESENT: moist, tongue midline Respiratory exam: PRESENT: clear to auscultation ney. ABSENT: rales, rhonchi, wheezes Cardiovascular exam: PRESENT: RRR. ABSENT: diastolic murmur, rubs, systolic murmur GI/Abdominal exam: PRESENT: normal bowel sounds, soft. ABSENT: distended, guarding, mass, organolmegaly, rebound, tenderness Rectal exam: PRESENT: deferred Extremities exam: PRESENT: full ROM. ABSENT: calf tenderness, clubbing, pedal edema Musculoskeletal exam: PRESENT: ambulatory Neurological exam: PRESENT: alert, awake, oriented to person, oriented to place , oriented to time, oriented to situation, CN II-XII grossly intact. ABSENT: motor sensory deficit Psychiatric exam: PRESENT: appropriate affect, normal mood. ABSENT: homicidal ideation, suicidal ideation Skin exam: PRESENT: dry, intact, warm. ABSENT: cyanosis, rash Results Laboratory Results: 05/25/17 07:12 05/25/17 07:12 Impressions: Chest/Abdomen CTA 05/19/17 08:30 IMPRESSION: No evidence for pulmonary embolic disease. Diffuse bilateral ground-glass opacities are identified with a more consolidative process being identified in the right mid lung field. No pleural effusions are identified. Differential possibilities would include pulmonary edema on a cardiogenic or noncardiogenic basis. In light of the patient's clinical history this could be a possible drug reaction. This could also represent a hypersensitivity pneumonitis. The possibility of an infectious process cannot be excluded. Clinical correlation is recommended. Old granulomatous disease. Other findings as noted above. Chest X-Ray 05/25/17 08:00 IMPRESSION: Chronic interstitial changes. Stable right lower lobe pulmonary nodule. Qualifiers PATEINT BEING DISCHARGED WITH ANY OF THE FOLLOWING DIAGNOSIS?: No Plan Discharge Plan: She will be discharged home today in stable condition Time Spent: Greater than 30 Minutes
[2017-05-26 13:46] VITALS: BP 131/85
== END 2017-05-26 15:00 | disposition home or self-care (01) | DRG 189 ==
LOC: ER 06:41 → EH 15:30 → 2S 20:33
PROVIDERS: ADMIT Emergency Medicine; ATTEND Emergency Medicine
PROC: 3E0F73Z Introduction of Anti-inflammatory into Respiratory Tract, Via Natural or Artificial Opening (ICD-10-PCS; principal; 2017-05-20)
PROC: 3E0234Z Introduction of Serum, Toxoid and Vaccine into Muscle, Percutaneous Approach (ICD-10-PCS; 2017-05-26)
DX: J96.01 Acute respiratory failure with hypoxia (principal); J18.1 Lobar pneumonia, unspecified organism; Z68.41 Body mass index [BMI] 40.0-44.9, adult; D86.9 Sarcoidosis, unspecified; F17.210 Nicotine dependence, cigarettes, uncomplicated; E03.9 Hypothyroidism, unspecified; L93.0 Discoid lupus erythematosus; E66.9 Obesity, unspecified; A60.04 Herpesviral vulvovaginitis; Z23 Encounter for immunization; Z88.8 Allergy status to other drugs, medicaments and biological substances; Z79.899 Other long term (current) drug therapy; Z83.3 Family history of diabetes mellitus; Z80.9 Family history of malignant neoplasm, unspecified
CPT/HCPCS: 36415; 71045; 71275; 80048; 80053; 80307; 81001; 83735; 84484; 84702; 85025; 85027; 85610; 85730; 87040; 87210; 87491; 87591; 90686; 93005; 93010; 94640; 94668; 94799; 96361; 96365; 96375; 99285; J0692; J1644; J1956; J2920; J3370; J7030; J7060; J7512; J7620

== ENCOUNTER 2017-06-19 23:15 | Emergency (ER) | payer SELFPAY ==
--- NOTE | 2017-06-19 23:54 | EKG REPORT ---
SEVERITY:- ABNORMAL ECG - SINUS RHYTHM CYNDEE, CONSIDER BIATRIAL ABNORMALITIES LEFT VENTRICULAR HYPERTROPHY : Confirmed by: Jace De Jesus 19-Jun-2017 23:53:47
[2017-06-20 00:30] LABS: HEMATOCRIT 46.6 % (36.0-47.0); HEMOGLOBIN 15.8 g/dL (12.0-15.5); MEAN CORPUSCULAR HEMOGLOBIN 30.1 pg (27.0-33.4); MEAN CORPUSCULAR HGB CONC 33.9 g/dL (32.0-36.0); MEAN CORPUSCULAR VOLUME 89 fl (80-97); PLATELET COUNT 472 10^3/uL (150-450); RED BLOOD COUNT 5.26 10^6/uL (3.72-5.28); RED CELL DISTRIBUTION WIDTH 14.1 % (11.5-14.0); WHITE BLOOD COUNT 26.7 10^3/uL (4.0-10.5)
[2017-06-20 00:31] LABS: ALANINE AMINOTRANSFERASE 68 U/L (9-52); ALBUMIN 4.6 g/dL (3.5-5.0); ALKALINE PHOSPHATASE 107 U/L (38-126); ANION GAP 12 (5-19); ASPARTATE AMINO TRANSFERASE 36 U/L (14-36); BILIRUBIN,DIRECT 0.3 mg/dL (0.0-0.4); BILIRUBIN,TOTAL 0.4 mg/dL (0.2-1.3); BLOOD UREA NITROGEN 16 mg/dL (7-20); CALCIUM 10.1 mg/dL (8.4-10.2); CARBON DIOXIDE 31 mmol/L (22-30); CHLORIDE 93 mmol/L (98-107); GLUCOSE 86 mg/dL (75-110); POTASSIUM 4.6 mmol/L (3.6-5.0); SODIUM 135.7 mmol/L (137-145); TOTAL PROTEIN 7.1 g/dL (6.3-8.2)
[2017-06-20 00:34] LABS: CREATINE KINASE < 20 U/L (30-135)
[2017-06-20 00:35] LABS: CREATINE KINASE MB 0.41 ng/mL (<4.55)
[2017-06-20 00:36] LABS: ABSOLUTE LYMPHOCYTES# (MANUAL) 4.3 10^3/uL (0.5-4.7); ABSOLUTE MONOCYTES # (MANUAL) 2.1 10^3/uL (0.1-1.4); ABSOLUTE NEUTROPHILS# (MANUAL) 20.3 10^3/uL (1.7-8.2); ANISOCYTOSIS SLIGHT; BASOPHILS % (MANUAL) 0 % (0-2); EOSINOPHILS % (MANUAL) 0 % (0-6); LYMPHOCYTES % (MANUAL) 12 % (13-45); MONOCYTES % (MANUAL) 8 % (3-13); PLATELET COMMENT INCREASED; POIKILOCYTOSIS 1+; SEGMENTED NEUTROPHILS % (MAN) 76 % (42-78); STOMATOCYTES 1+; TOTAL CELLS COUNTED 100; TOXIC GRANULATION 1+
--- NOTE | 2017-06-20 00:37 | RADIOLOGY REPORT (SQ) ---
EXAM DESCRIPTION: CTA of the chest per PE protocol with contrast. CLINICAL HISTORY: chest pain sob COMPARISON: 05/19/2017 TECHNIQUE: CTA of the chest obtained following the uncomplicated intravenous administration of 70 mL Isovue-370. 3-D/MIP reformatted images of the chest available for evaluation. FINDINGS: Chest: Mediastinal windows demonstrate an adequate contrast bolus. No pulmonary embolus identified. Suboptimal evaluation of the lobar, segmental, and subsegmental pulmonary arterial branches due to contrast bolus timing. No large central pulmonary embolus identified. Visualized thyroid gland is unremarkable. Great vessels have normal anatomic configuration. No evidence of right heart strain. No cardiomegaly, pericardial effusion, or coronary artery atherosclerosis. No abnormalities of the esophagus. Calcified mediastinal and hilar lymph nodes. No lymphadenopathy. Breast implants identified. Lung windows demonstrate improved aeration of the right lung base with mild residual right middle lobe atelectatic opacity. Right basilar calcified granulomas. No pneumothorax or pleural effusion. Few scattered groundglass opacities again identified suggesting air trapping. These are improved from the comparison study. No abnormalities of the visualized trachea or airways. Limited images of the upper abdomen demonstrate no abnormalities of the visualized spleen, pancreas, adrenal glands, gallbladder, or kidneys. The liver is enlarged with diffusely decreased density. No destructive osseous lesions. DLP: 894.80 mGycm IMPRESSION: 1. No central pulmonary embolus identified. Suboptimal evaluation of the lobar, segmental, and subsegmental pulmonary arterial branches due to contrast bolus timing. 2. Improved aeration of the lungs with significant interval decrease in groundglass opacification as well as decreased right middle lobe atelectatic change. 3. Hepatic steatosis and hepatomegaly. This exam was performed according to our departmental dose-optimization program, which includes automated exposure control, adjustment of the mA and/or kV according to patient size and/or use of iterative reconstruction technique.
[2017-06-20 00:43] LABS: TROPONIN I < 0.012 ng/mL
[2017-06-20] MEDS ORDERED: FENTANYL CITRATE INJ/PF 100 MCG/2 ML AMPUL IV ONE (00:43)
--- NOTE | 2017-06-20 00:52 | ER Document Report ---
ED General - General Chief Complaint: Chest Pain Stated Complaint: CHEST PAIN/LEG PAIN Time Seen by Provider: 06/19/17 23:35 Mode of Arrival: Ambulatory Information source: [facility] Records Notes: 37-year-old female who had a diagnosis of pneumonia for which she was admitted in the hospital for 9 days resents with complaints of continued cough. Patient notes she is currently on steroids notes that the cough has improved but she is having some chest pain with the cough. Patient also notes joint pain. Patient notes that she has chronic knee pain but has worsened over the past 3 days denies any calf pain calf swelling leg pain otherwise Patient denies any fevers or chills TRAVEL OUTSIDE OF THE [place] IN LAST 30 DAYS: No - HPI Onset: Other Onset/Duration: Persistent Quality of pain: Achy Severity: Mild Pain Level: 1 Associated symptoms: Body/muscle aches, Chest pain, Nonproductive cough Exacerbated by: Movement, Walking, Coughing Relieved by: Denies Similar symptoms previously: Yes Recently seen / treated by doctor: Yes - Related Data Allergies/Adverse Reactions: naproxen [From Aleve] Allergy (Verified 10/22/16 13:52) Past Medical History - Social History Smoking Status: Former Smoker Cigarette use (# per day): No Chew tobacco use (# tins/day): No Smoking Education Provided: No Frequency of alcohol use: Rare Drug Abuse: Marijuana Family History: Malignancy, Thyroid Disfunction Patient has suicidal ideation: No Patient has homicidal ideation: No Endocrine Medical History: Reports: Hx Hypothyroidism Renal/ Medical History: Denies: Hx Peritoneal Dialysis Past Surgical History: Reports: Hx Breast Surgery - augmentation, Hx Section - 3, Hx Nose Surgery - Deviated septum, Hx Tonsillectomy, Other - Bilateral tubal ligation - Immunizations Immunizations up to date: Yes Hx Diphtheria, Pertussis, Tetanus Vaccination: Yes Review of Systems - Review of Systems Notes: REVIEW OF SYSTEMS: CONSTITUTIONAL : Denies fever, chills, or sweats. Denies recent illness. EENT: Denies eye, ear, throat, or mouth pain or symptoms. Denies nasal or sinus congestion or discharge. Denies throat, tongue, or mouth swelling or difficulty swallowing. CARDIOVASCULAR: Admits to chest pain RESPIRATORY: Admits to cough GASTROINTESTINAL: Denies abdominal pain or distention. Denies nausea, vomiting , or diarrhea. Denies blood in vomitus, stools, or per rectum. Denies black, tarry stools. Denies constipation. GENITOURINARY: Denies difficulty urinating, painful urination, burning, frequency, blood in urine, or discharge. FEMALE GENITOURINARY: Denies vaginal bleeding, heavy or abnormal periods, irregular periods. Denies vaginal discharge or odor. MUSCULOSKELETAL: Admits to knee pain SKIN: Denies rash, lesions or sores. HEMATOLOGIC : Denies easy bruising or bleeding. LYMPHATIC: Denies swollen, enlarged glands. NEUROLOGICAL: Denies confusion or altered mental status. Denies passing out or loss of consciousness. Denies dizziness or lightheadedness. Denies headache. Denies weakness or paralysis or loss of use of either side. Denies problems with gait or speech. Denies sensory loss, numbness, or tingling. Denies seizures. PSYCHIATRIC: Denies anxiety or stress. Denies depression, suicidal ideation, or homicidal ideation. ALL OTHER SYSTEMS REVIEWED AND NEGATIVE. PHYSICAL EXAMINATION: GENERAL: Well-appearing, well-nourished and in no acute distress. HEAD: Atraumatic, normocephalic. EYES: Pupils equal round and reactive to light, extraocular movements intact, conjunctiva are normal. ENT: Nares patent, oropharynx clear without exudates. Moist mucous membranes. NECK: Normal range of motion, supple without lymphadenopathy LUNGS: Breath sounds clear to auscultation bilaterally and equal. No wheezes rales or rhonchi. HEART: Regular rate and rhythm without murmurs ABDOMEN: Soft, nontender, nondistended abdomen. No guarding, no rebound. No masses appreciated. Female : deferred Musculoskeletal: Normal range of motion, no pitting or edema. No cyanosis. No calf swelling tenderness with range of motion of bilateral knees NEUROLOGICAL: Cranial nerves grossly intact. Normal speech, normal gait. Normal sensory, motor exams PSYCH: Normal mood, normal affect. SKIN: Warm, Dry, normal turgor, no rashes or lesions noted. Dictation was performed using [employer] voice recognition software Physical Exam - Vital signs Vitals: Pulse Ox 100 06/20/17 01:24 Course - Re-evaluation Re-evalutation: 06/20/17 02:10 Patient's white count was 26.7, however looking at previous lab work her white count has been significantly elevated and she is currently on steroids which would explain these abnormal values. She overall looks well, I do believe she is either rheumatoid arthritis or lupus given the extensive history of knee pain. I have very low suspicion for DVT however did perform a CT of the chest to rule out a pulmonary emboli given that she was having chest pain with cough and was noted to be intermittently tachycardic otherwise the patient looks well I had a very long discussion with her and she feels stable at this time I will discharge home with strict return precautions After performing a Medical Screening Examination, I estimate there is LOW risk for RUPTURED ESOPHAGUS, PNEUMOTHORAX, PULMONARY EMBOLISM, ACUTE CORONARY SYNDROME, OR THORACIC AORTIC DISSECTION, thus I consider the discharge disposition reasonable. I have reevaluated this patient multiple times and no significant life threatening changes are noted. The patient and I have discussed the diagnosis and risks, and we agree with discharging home with close follow-up. We also discussed returning to the Emergency Department immediately if new or worsening symptoms occur. We have discussed the symptoms which are most concerning (e.g., bloody sputum, worsening pain or shortness of breath) that necessitate immediate return. - Vital Signs Vital signs: Temp Pulse Resp BP Pulse Ox 100 06/20/17 01:24 - Laboratory Result Diagrams: 06/19/17 23:50 06/19/17 23:50 Laboratory results interpreted by me: 06/19/17 06/19/17 23:50 23:50 WBC 26.7 H Hgb 15.8 H RDW 14.1 H Plt Count 472 H Lymphocytes % (Manual) 12 L Abs Neuts (Manual) 20.3 H Abs Monocytes (Manual) 2.1 H Sodium 135.7 L Chloride 93 L Carbon Dioxide 31 H ALT 68 H Creatine Kinase < 20 L - Diagnostic Test Radiology reviewed: Image reviewed, Reports reviewed - No pulmonary emboli noted report given to patient - EKG Interpretation by Me EKG shows normal: [place], Intervals, QRS Complexes, ST-T Waves Rate: Tachycardia Discharge - Discharge Clinical Impression: Knee pain Qualifiers: Chronicity: chronic Laterality: bilateral Qualified Code(s): M25.561 - Pain in right knee; M25.562 - Pain in left knee; M25.562 - Pain in left knee; G89.29 - Other chronic pain; G89.29 - Other chronic pain Chest pain Qualifiers: Chest pain type: chest pain on breathing Qualified Code(s): R07.1 - Chest pain on breathing; R07.81 - Pleurodynia Condition: Stable Disposition: HOME, SELF-CARE Instructions: Chest Pain of Unclear Cause ([facility]) Additional Instructions: Follow up with your physician tomorrow for further care or return to the ED IMMEDIATELY if symptoms worsen or new concerns occur. If you cannot afford to follow up with your primary care physician a list of low cost clinics have been provided at the end of your discharge papers as well. Prescriptions: Ketorolac Tromethamine [Toradol 10 mg Tablet] 10 mg PO Q8HP PRN #12 tablet PRN Reason: Hydrocodone/Acetaminophen [[place] 5-325 mg Tablet] 1 tab PO Q6 #14 tablet
[2017-06-20 01:47] VITALS: BP 113/69
== END 2017-06-20 01:52 | disposition home or self-care (01) ==
LOC: ER 23:15
DX: G89.29 Other chronic pain (principal); M25.562 Pain in left knee; M25.561 Pain in right knee; R07.81 Pleurodynia; R07.9 Chest pain, unspecified; M79.606 Pain in leg, unspecified; E03.9 Hypothyroidism, unspecified; Z98.51 Tubal ligation status
CPT/HCPCS: 93005; 99285; 36415; 82553; 82550; 85025; 80053; 84484; 71275; 93010; J3010

== ENCOUNTER 2017-08-15 00:58 | Emergency (ER) | payer SELFPAY ==
[2017-08-15 01:04] VITALS: BP 134/90
[2017-08-15] MEDS ORDERED: NORMAL SALINE 1000 ML 1,000 ML IV ONE (01:56)
[2017-08-15] MEDS ORDERED: KETOROLAC TROMETHAMINE INJ/PF 30 MG/1 ML SDV IV ONE (01:56)
--- NOTE | 2017-08-15 01:58 | ER Document Report ---
HPI - HPI Patient complains to provider of: Headache, cough Onset: Other - Headache 2 hours, cough 1 week Onset/Duration: Persistent Quality of pain: Achy Pain Level: 4 Context: Patient presents complaining of occipital headache that started 2 hours prior to arrival. Patient states she has had intermittent headaches off and on over the past 3 days. Patient reports occasionally productive cough for the past week. Patient denies any fever. She denies any head injury. Patient also states that she ran out of her thyroid medication 3 days ago and needs a refill. Associated Symptoms: Productive cough, Headache. denies: Chest pain, Earache, Nausea, Vomiting Exacerbated by: Denies Relieved by: Denies Similar symptoms previously: Yes Recently seen / treated by doctor: No - ROS ROS below otherwise negative: Yes Systems Reviewed and Negative: Yes All other systems reviewed and negative - CONSTITUTIONAL Constitutional: DENIES: Fever, Chills - EENT EENT: DENIES: Sore Throat - NEURO Neurology: REPORTS: Headache. DENIES: Vision blurred - CARDIOVASCULAR Cardiovascular: DENIES: Chest pain - RESPIRATORY Respiratory: REPORTS: Coughing. 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 Lives with: Family Family History: Malignancy, Thyroid Disfunction - Medical History Medical History: Other - Lupus Endocrine Medical History: Reports: Hx Hypothyroidism Renal/ Medical History: Denies: Hx Peritoneal Dialysis Past Surgical History: Reports: Hx Breast Surgery - augmentation, Hx Section - 3, Hx Nose Surgery - Deviated septum, Hx Tonsillectomy, Other - Bilateral tubal ligation - Immunizations Immunizations up to date: Yes Hx Diphtheria, Pertussis, Tetanus Vaccination: Yes Vertical Provider Document - CONSTITUTIONAL Agree With Documented VS: Yes Exam Limitations: No Limitations General Appearance: WD/WN, No Apparent Distress - INFECTION CONTROL TRAVEL OUTSIDE OF THE [place] IN LAST 30 DAYS: No - HEENT HEENT: Atraumatic, Normocephalic. negative: Pharyngeal Exudate, Pharyngeal Tenderness, Pharyngeal Erythema, Tympanic Membrane Red, Tympanic Membrane Bulging Notes: clear rhinorrhea - NECK Neck: Normal Inspection, Supple, Other - No meningismus. negative: Lymphadenopathy-Left, Lymphadenopathy-Right - RESPIRATORY Respiratory: No Respiratory Distress, Chest Non-Tender, Rhonchi - CARDIOVASCULAR Cardiovascular: Regular Rhythm, No Murmur, Tachycardia - GI/ABDOMEN Gastrointestinal: Abdomen Soft, Abdomen Non-Tender - BACK Back: Normal Inspection. negative: CVA Tenderness-Right, CVA Tenderness-Left - MUSCULOSKELETAL/EXTREMETIES Musculoskeletal/Extremeties: MAEW, FROM - NEURO Level of Consciousness: Awake, Alert, Appropriate Motor/Sensory: No Motor Deficit - DERM Integumentary: Warm, Dry Course - Re-evaluation Re-evalutation: 08/15/17 02:56 Patient complains of continued headache pain but states that pain has moved in location. Pain initially was the occipital area and is now to the bilateral temporal area. Additional medications ordered. 08/15/17 03:54 Patient reports that headache pain is improved at this time. The patient presents with headache without signs of [employer] bleed, stroke, infection, or other serious etiology. The patient is neurologically intact. Given the extremely low risk of these diagnoses further testing and evaluation for these possibilities does not appear to be indicated at this time. The patient has been instructed to return if the symptoms worsen or change in any way. - Vital Signs Vital signs: Temp Pulse Resp BP Pulse Ox 97.9 F 106 H 20 134/90 H 96 08/15/17 01:03 08/15/17 01:03 08/15/17 01:03 08/15/17 01:03 08/15/17 01:03 - Diagnostic Test Radiology reviewed: Reports reviewed Discharge - Discharge Clinical Impression: History of hypothyroidism Headache Qualifiers: Headache type: unspecified Headache chronicity pattern: unspecified pattern Intractability: not intractable Qualified Code(s): R51 - Headache Upper respiratory infection Qualifiers: URI type: unspecified URI Qualified Code(s): J06.9 - Acute upper respiratory infection, unspecified Condition: Stable Disposition: HOME, SELF-CARE Instructions: Headache ([facility]), Hypothyroidism ([facility]), Upper Respiratory Illness ( [facility]) Additional Instructions: Return immediately for any new or worsening symptoms Followup with your primary care provider, call tomorrow to make a followup appointment Prescriptions: Butalb/Acetaminophen/Caffeine [Fioricet (50-325-40 mg) Tablet] 1 - 2 tab PO Q4H PRN #14 each PRN Reason: Levothyroxine Sodium 125 mcg PO DAILY #30 tablet Forms: Return to Work Referrals: [facility] [Provider Group] - Follow up as needed [facility] [Provider Group] - Follow up as needed
--- NOTE | 2017-08-15 02:24 | RADIOLOGY REPORT (SQ) ---
EXAM DESCRIPTION: CHEST 2 VIEWS CLINICAL HISTORY: cough COMPARISON: 06/20/2017 FINDINGS: Frontal and lateral views of the chest. The cardiomediastinal silhouette has normal size and contour. No consolidation, pneumothorax, or pleural effusion. No displaced rib fractures identified. Upper abdominal soft tissues are unremarkable. IMPRESSION: 1. No acute pulmonary process identified.
[2017-08-15] MEDS ORDERED: DIPHENHYDRAMINE HCL 50 MG/ML VIAL IV ONE (02:55)
[2017-08-15] MEDS ORDERED: PROCHLORPERAZINE EDISYLATE INJ 10 MG/2 ML VIAL IV ONE (02:55)
== END 2017-08-15 04:02 | disposition home or self-care (01) ==
LOC: ER 00:58
DX: R51 Headache (principal); J06.9 Acute upper respiratory infection, unspecified; R05 Cough; E03.9 Hypothyroidism, unspecified; Z87.891 Personal history of nicotine dependence
CPT/HCPCS: 99284; 96361; 96374; 96375; 71046; J1200; J1885; J0780; J7030

== ENCOUNTER 2017-08-19 20:34 | Emergency (ER) | payer SELFPAY ==
[2017-08-19 20:42] VITALS: BP 141/99
[2017-08-19] MEDS ORDERED: CLARITHROMYCIN 500 MG TABLET PO ONE (20:50)
--- NOTE | 2017-08-19 20:57 | ER Document Report ---
ED General - General Chief Complaint: Cough Stated Complaint: RESPIRATORY PROBLEM Time Seen by Provider: 08/19/17 20:44 Mode of Arrival: Ambulatory Information source: Patient TRAVEL OUTSIDE OF THE [place] IN LAST 30 DAYS: No - HPI Patient complains to provider of: cough/sinus pressure Onset: Other - 4 days ago Onset/Duration: Worse Severity: Moderate Associated symptoms: Nonproductive cough, Headache, Nausea Similar symptoms previously: Yes Recently seen / treated by doctor: Yes - here a few days ago - Related Data Allergies/Adverse Reactions: No Known Allergies Allergy (Verified 08/15/17 01:00) Past Medical History - General Information source: Patient - Social History Smoking Status: Never Smoker Frequency of alcohol use: None Drug Abuse: None Lives with: Family Family History: Malignancy, Thyroid Disfunction Patient has suicidal ideation: No Patient has homicidal ideation: No - Past Medical History Cardiac Medical History: Reports: None Pulmonary Medical History: Reports: Hx Bronchitis, Hx Pneumonia EENT Medical History: Reports: None Neurological Medical History: Reports: None Endocrine Medical History: Reports: Hx Hypothyroidism Renal/ Medical History: Denies: Hx Peritoneal Dialysis Malignancy Medical History: Reports: None GI Medical History: Reports: None Skin Medical History: Reports None Psychiatric Medical History: Reports: None Traumatic Medical History: Reports: None Past Surgical History: Reports: Hx Breast Surgery - augmentation, Hx Section - 3, Hx Nose Surgery - Deviated septum, Hx Tonsillectomy, Other - Bilateral tubal ligation - Immunizations Immunizations up to date: Yes Hx Diphtheria, Pertussis, Tetanus Vaccination: Yes Review of Systems - Review of Systems Constitutional: Chills EENT: Ear pain - right, Nose congestion, Sinus pressure Respiratory: Cough. denies: Short of breath, Sputum, Wheezing Gastrointestinal: Diarrhea, Nausea, Vomiting Genitourinary: No symptoms reported Female Genitourinary: No symptoms reported Musculoskeletal: No symptoms reported Skin: No symptoms reported Hematologic/Lymphatic: No symptoms reported Neurological/Psychological: No symptoms reported Physical Exam - Vital signs Vitals: Temp Pulse Resp BP Pulse Ox 97.7 F 87 22 H 141/99 H 97 08/19/17 20:39 08/19/17 20:39 08/19/17 20:39 08/19/17 20:39 08/19/17 20:39 - Notes Notes: PHYSICAL EXAMINATION: GENERAL: Well-appearing, well-nourished and in no acute distress. HEAD: Atraumatic, normocephalic. EYES: Pupils equal round and reactive to light, extraocular movements intact, conjunctiva are normal. ENT: Nares patent, oropharynx clear without exudates. Moist mucous membranes. Left TM within normal limits. Right TM with erythema loss of landmarks. With percussion of the frontal maxillary sinuses. Positive nasal congestion. NECK: Normal range of motion, supple without lymphadenopathy LUNGS: Breath sounds clear to auscultation bilaterally and equal. No wheezes rales or rhonchi. HEART: Regular rate and rhythm without murmurs ABDOMEN: Soft, nontender, nondistended abdomen. No guarding, no rebound. No masses appreciated. Female : deferred Musculoskeletal: Normal range of motion, no pitting or edema. No cyanosis. NEUROLOGICAL: Cranial nerves grossly intact. Normal speech, normal gait. Normal sensory, motor exams PSYCH: Normal mood, normal affect. SKIN: Warm, Dry, normal turgor, no rashes or lesions noted. Course - Vital Signs Vital signs: Temp Pulse Resp BP Pulse Ox 97.7 F 87 22 H 141/99 H 97 08/19/17 20:39 08/19/17 20:39 08/19/17 20:39 08/19/17 20:39 08/19/17 20:39 Discharge - Discharge Clinical Impression: Sinusitis Condition: Stable Disposition: HOME, SELF-CARE Instructions: Sinusitis ([facility]) Additional Instructions: Plenty of fluids. Antibiotics as prescribed. Return to the emergency department for worsening of symptoms or any other concerns. Prescriptions: Clarithromycin [Biaxin XL 500 mg 24hr Tablet] 1,000 mg PO DAILY 14 Days #14 tab.sr.24h Ondansetron [Zofran Odt 4 mg Tablet] 1 - 2 tab PO Q4H PRN #15 tab.rapdis PRN Reason: For Nausea/Vomiting
== END 2017-08-19 21:03 | disposition home or self-care (01) ==
LOC: ER 20:34
DX: J32.9 Chronic sinusitis, unspecified (principal); R05 Cough; R51 Headache; R11.0 Nausea; R68.83 Chills (without fever); R19.7 Diarrhea, unspecified; R11.2 Nausea with vomiting, unspecified
CPT/HCPCS: 99283; J3490

== ENCOUNTER 2018-06-28 00:23 | Emergency (ER) | payer SELFPAY ==
[2018-06-28] MEDS ORDERED: LORAZEPAM 1 MG TABLET PO ONE (01:05)
--- NOTE | 2018-06-28 01:21 | ER Document Report ---
ED General - General Chief Complaint: Altered Mental Status Stated Complaint: ALTERED MENTAL STATUS Time Seen by Provider: 06/28/18 00:49 Mode of Arrival: Ambulatory Information source: Patient, Friend Notes: 38-year-old female with anxiety, hypothyroidism presents with chief complaint of altered mental status. Patient drove herself to the emergency department and states that she does not think that she is speaking right. Patient denies any headache, weakness, slurred speech, head injury. She does report that she had for anxiety attacks today after her told her that he wanted a divorce and that he was taking custody of the children because she is a "bad mom". Patient is alert and oriented x4. Patient then begins talking about her chronic abdominal pain, chronic vaginal irritation and reports that she has green discharge from her vagina. She also reports that she has not been sexually active in 3 years and had recent STD testing which was negative. She denies any recent antibiotic use. Patient states she has been compliant with her levothyroxine and recently had her levels tested and were normal. Denies suicidal, homicidal ideation TRAVEL OUTSIDE OF THE [place] IN LAST 30 DAYS: No - HPI Onset: Other Onset/Duration: Intermittent Quality of pain: Burning, Other - Itching Severity: Mild Associated symptoms: denies: Chest pain, Fever, Nausea, Vomiting, Shortness of breath Exacerbated by: Walking Relieved by: Denies Similar symptoms previously: Yes Recently seen / treated by doctor: Yes - Related Data Allergies/Adverse Reactions: naproxen [From Aleve] Allergy (Verified 06/28/18 00:25) Past Medical History - General Information source: Patient, Friend, [facility] Records - Social History Smoking Status: Current Some Day Smoker Cigarette use (# per day): Yes - 4/week Frequency of alcohol use: None Drug Abuse: None Lives with: Family Family History: Malignancy, Thyroid Disfunction Patient has suicidal ideation: No Patient has homicidal ideation: No Pulmonary Medical History: Reports: Hx Bronchitis, Hx Pneumonia Endocrine Medical History: Reports: Hx Hypothyroidism Renal/ Medical History: Denies: Hx Peritoneal Dialysis Past Surgical History: Reports: Hx Breast Surgery - augmentation, Hx Section - 3, Hx Nose Surgery - Deviated septum, Hx Tonsillectomy, Other - Bilateral tubal ligation - Immunizations Immunizations up to date: Yes Hx Diphtheria, Pertussis, Tetanus Vaccination: Yes Review of Systems - Review of Systems Notes: REVIEW OF SYSTEMS: CONSTITUTIONAL : Denies fever, chills, or sweats. Denies recent illness. Denies weight loss, recent hospitalizations. EENT: Denies visual changes, eye pain. Denies sore throat, oral lesions, difficulty swallowing. CARDIOVASCULAR: Denies chest pain. Denies palpitations. Denies lower extremity edema. RESPIRATORY: Denies cough. Denies shortness of breath, wheezing. GASTROINTESTINAL: Denies abdominal pain or distention. Denies nausea, vomiting, or diarrhea. Denies blood in vomitus, stools, or per rectum. Denies black, tarry stools. Denies constipation. GENITOURINARY: Denies difficulty urinating, frequency, blood in urine, MUSCULOSKELETAL: Denies back or neck pain or stiffness. Denies joint pain or swelling. SKIN: Denies rash, lesions or sores. HEMATOLOGIC : Denies easy bruising or bleeding. LYMPHATIC: Denies swollen glands. NEUROLOGICAL: Denies loss of consciousness. Denies dizziness or lightheadedness. Denies headache. Denies weakness or paralysis. Denies problems difficulty with ambulation, slurred speech. Denies sensory loss, n umbness, or tingling. Denies seizures. PSYCHIATRIC: Denies depression, suicidal ideation, or homicidal ideation. Denies visual or auditory hallucinations. Physical Exam - Vital signs Vitals: Temp Pulse Resp BP Pulse Ox 97.8 F 123 H 24 H 143/77 H 100 06/28/18 00:33 06/28/18 00:33 06/28/18 00:33 06/28/18 00:33 06/28/18 00:33 - Notes Notes: PHYSICAL EXAMINATION: GENERAL: Anxious, pressured speech HEAD: Atraumatic, normocephalic. EYES: Pupils equal round and reactive to light, extraocular movements intact, conjunctiva are normal. ENT: Nares patent, oropharynx clear without exudates. Moist mucous membranes. NECK: Normal range of motion, supple without lymphadenopathy LUNGS: Breath sounds clear to auscultation bilaterally and equal. No wheezes rales or rhonchi. HEART: Regular rate and rhythm without murmurs ABDOMEN: Soft, nontender, nondistended abdomen. No guarding, no rebound. No masses appreciated. Female : Pelvic exam; External extensive excoriation of the labia, inguinal folds. Excoriations of the inner thighs. Speculum exam with no discharge. Vaginal wall unremarkable. Os closed. No cervical motion tenderness. No adnexal tenderness or masses appreciated. Swabs obtained for gonorrhea, chlamydia and wet prep. Musculoskeletal: Normal range of motion, no pitting or edema. No cyanosis. NEUROLOGICAL: Cranial nerves grossly intact. Normal speech, normal gait. Normal sensory, motor exams. NIH-0 PSYCH: Anxious, pressured speech, denies suicidal, homicidal ideation SKIN: Warm, Dry, normal turgor, no rashes or lesions noted. Course - Re-evaluation Re-evalutation: Laboratory 06/28/18 06/28/18 06/28/18 01:20 01:20 02:00 Urine Color COLORLESS Urine Appearance CLEAR Urine pH 6.0 Ur Specific [place] 1.001 Urine Protein NEGATIVE Urine Glucose (UA) NEGATIVE Urine Ketones NEGATIVE Urine Blood NEGATIVE Urine Nitrite NEGATIVE Urine Bilirubin NEGATIVE Urine Urobilinogen NEGATIVE Ur Leukocyte Esterase NEGATIVE Urine WBC (Auto) 0 Squamous Epi Cells Auto 1 Urine Mucus (Auto) RARE Urine Ascorbic Acid NEGATIVE Urine HCG, Qual NEGATIVE Epi Cells (Wet Prep) 3+ EPITHELIALS SEEN Trichomonas (Wet Prep) NO TRICHOMONAS SEEN Vaginal WBC NO WBCS SEEN Vaginal RBC NO RBCS SEEN Vaginal Yeast NO YEAST SEEN Urine Opiates Screen Urine Methadone Screen Ur Barbiturates Screen Ur Phencyclidine Scrn Ur Amphetamines Screen U Benzodiazepines Scrn Urine Cocaine Screen U Marijuana (THC) Screen Chlamydia DNA (PCR) NOT DETECTED N.gonorrhoeae DNA (PCR) NOT DETECTED 06/28/18 02:00 Urine Color Urine Appearance Urine pH Ur Specific [place] Urine Protein Urine Glucose (UA) Urine Ketones Urine Blood Urine Nitrite Urine Bilirubin Urine Urobilinogen Ur Leukocyte Esterase Urine WBC (Auto) Squamous Epi Cells Auto Urine Mucus (Auto) Urine Ascorbic Acid Urine HCG, Qual Epi Cells (Wet Prep) Trichomonas (Wet Prep) Vaginal WBC Vaginal RBC Vaginal Yeast Urine Opiates Screen NEGATIVE Urine Methadone Screen NEGATIVE Ur Barbiturates Screen NEGATIVE Ur Phencyclidine Scrn NEGATIVE Ur Amphetamines Screen U Benzodiazepines Scrn NEGATIVE Urine Cocaine Screen NEGATIVE U Marijuana (THC) Screen NEGATIVE Chlamydia DNA (PCR) N.gonorrhoeae DNA (PCR) Temp Pulse Resp BP Pulse Ox 97.8 F 116 H 29 H 139/97 H 99 06/28/18 00:33 06/28/18 00:50 06/28/18 01:01 06/28/18 01:01 06/28/18 01:01 06/28/18 01:26 38-year-old female presents with chief complaint of altered mental status. Upon my exam patient is alert, awake and alert and oriented x4. She has no abnormal speech, normal neurologic exam, ambulates without difficulty. Patient denies homicidal, suicidal ideation. Does report that her recently told her that 06/28/18 03:30 Patient urine drug screen is positive for amphetamines. This would correlate with her behavior. Patient administered Valium. She is declining behavioral health evaluation in the morning. She states that she will be staying with her best friend lisa. Will be discharged home with nystatin powder, clotrimazole cream. Patient was evaluated and treated as appropriate for the patient's presenting symptoms and complaint, with consideration of any critical or life threatening conditions that may be associated with their obtained history and exam as noted above. All results were discussed with patient and her friend who is at the bedside. Patient provided the opportunity to ask questions, and express concerns. Patient was educated on treatments based on their presumed diagnosis as noted above. At this time we will discharge the patient with return precautions and follow-up recommendations. Verbal discharge instructions given a the bedside. Medication warnings reviewed. Patient is in agreement with this plan and has verbalized understanding of return precautions. After careful consideration I feel that that patient can be safely discharged from the emergency department, they were advised to followup with a primary care physician in 2-3 days. Dictation on this chart was performed using voice recognition software and may result in unintended grammatical, spelling, syntax or errors. 06/28/18 04:01 - Vital Signs Vital signs: Temp Pulse Resp BP Pulse Ox 98.5 F 98 18 118/70 98 06/28/18 03:40 06/28/18 03:40 06/28/18 03:40 06/28/18 03:40 06/28/18 03:40 Discharge - Discharge Clinical Impression: Vaginitis and vulvovaginitis, Anxiety about health, Social anxiety disorder Condition: Good Disposition: HOME, SELF-CARE Instructions: Anxiety ([facility]), Vaginitis ([facility]) Additional Instructions: Follow up with your [id number] hours for further care or return to the ED IMMEDIATELY if symptoms worsen or you have any concerns. If you cannot afford to follow up with your primary care physician a list of low cost clinics have been provided at the end of your discharge papers as well. Most prescribed medications have multiple side effects. The safest thing to do is when filling your prescription speak to your pharmacist regarding possible interactions with your normal home medications and over the counter medications such as Ibuprofen, Tylenol, Benadryl. If you experience any symptoms that cause you discomfort or concern you should discontinue the medication immediately and return to the emergency room or call your primary care physician. Prescriptions: Clotrimazole 1% Topical [Lotrimin 1% Topical Soln 10 ml] 15 applic TP TID #1 bottle Fluconazole [Diflucan] 150 mg PO ONCE PRN 1 Days #1 tablet PRN Reason: Nystatin 1 each MC BID #1 powder.ea. Forms: Elevated Blood Pressure ED NIH Stroke Scale - NIH Stroke Scale *: 1. NIH scale should be completed with appropriate accompanying assessment tools. *: 2. The NIH should reflect what the patient is capable of doing and should not be coached by the clinician. 1a. Level of Consciousness: 0=Alert;keenly responsive -: 1=Drowsy -: 2=Obtunded -: 3=Coma/unresponsive or reflex to noxious stimuli. 1a. Responses: 0 1b. Orientation Questions: a. What month is it? -: b. How old are you? -: 0=Answers both questions correctly. -: 1=Answers one question correctly or patient is intubated or has orotracheal trauma. -: 2=Answers neither question correctly. 1b. Responses: 0 1c. Response to commands: a. Open and close eyes? -: b. Abrasive Grader and release hand? -: Credit is given despite weakness. Demonstration of task is permitted. Substitute command if hands cannot be used. -: 0=Performs both tasks correctly -: 1=Performs one task correctly -: 2=Performs neither task correctly 1c. Responses: 0 2. Gaze: Establish eye contact and instruct patient to "Follow my finger" -: 0=Normal -: 1=Partial gaze palsy. Gaze is abnormal in one or both eyes, but where forced deviation or total gaze paresis is not present. -: 2=Forced deviation or total gaze paresis. 2. Responses: 0 3. Visual [place]: Sees fingers in all four quadrants. -: 0=No visual loss. -: 1=Partial hemianopsia. -: 2=Complete hemianopsia. -: 3=Bilateral hemianopsia (including Cortical blindness) 3. Responses: 0 4. Facial Movement: Instruct patient to: -: a. Show me your teeth -: b. Raise your eyebrows -: c. Close your eyes -: d. Smile -: 0=Normal symmetrical movement -: 1=Minor paralysis (flattened nasolabial fold, asymmetry on smiling). -: 2=Partial paralysis (total or near total paralysis of lower face). -: 3=Complete paralysis of upper and lower face 4. Responses: 0 5. Motor functions (left arm): Alternate sides and extend each arm with palms down (90 degrees if sitting or 45 degrees for supine). -: 0=No drift;limb holds for full 10 seconds. -: 1=Drift; limb holds but drifts down before full 10 seconds, but does not hit bed. -: 2=Some effort against gravity; limb cannot get to or maintain position. -: 3=No effort against gravity; limb falls. -: 4=No movement. -: UN=Amputation, joint fusion, explain in comments. 5. Responses (left arm): 0 5. Motor Functions (right arm): Alternate sides and extend each arm with palms down (90 degrees if sitting or 45 degrees for supine). -: 0=No drift;limb holds for full 10 seconds. -: 1=Drift; limb holds but drifts down before full 10 seconds, but does not hit bed. -: 2=Some effort against gravity; limb cannot get to or maintain position. -: 3=No effort against gravity; limb falls. -: 4=No movement. -: UN=Amputation, joint fusion, explain in comments. 5. Responses (right arm): 0 6. Motor Functions (left leg): With patient lying supine, alternate sides and extend each leg (30 degrees always while supine). -: 0=No drift, leg holds position for full 5 seconds -: 1=Drift; leg falls before full 5 seconds but does not hit bed. -: 2=Some effort against gravity, leg falls to bed but some effort against gravity. -: 3=No effort against gravity, leg falls to bed immediately. -: 4=No movement. -: UN=Amputation, joint fusion; explain in comments. 6. Responses (left leg): 0 6. Motor Functions (right leg): With patient lying supine, alternate sides and extend each leg (30 degrees always while supine). -: 0=No drift, leg holds position for full 5 seconds -: 1=Drift; leg falls before full 5 seconds but does not hit bed. -: 2=Some effort against gravity, leg falls to bed but some effort against gravity. -: 3=No effort against gravity, leg falls to bed immediately. -: 4=No movement. -: UN=Amputation, joint fusion; explain in comments. 6. Responses (right leg): 0 7. Limb Ataxia: With eyes open instruct patient to: -: a. "Touch your finger to your nose". -: b. "Touch your heel to your del cid" -: 0=Absent -: 1=Present in one limb. -: 2=Present in two limbs. -: UN=Amputation or joint fusion; explain in comments. 7. Responses: 0 8. Sensory: Test sensation using pinprick or noxious stimuli. Test as many body parts as possible. -: 0=Normal;no sensory loss -: 1=Mile to moderate sensory loss (patient feels pin prick but is less sharp on affected side). -: 2=Severe or total sensory loss. 8. Responses: 0 9. Best Language: Instruct patient to: -: a. "Describe what you see in this picture." -: b. "Name the items in this picture." -: c. "Read these sentences." -: 0=No aphasia, normal -: 1=Mild to moderate aphasia. -: 2=Severe aphasia -: 3=Mute, global aphasia, no usable speech or auditory comprehension. 9. Responses: 0 10. Articulation, Dysarthia: Instruct patient to: -: "Read these words" or "Repeat these words" -: 0=Normal -: 1=Mild to moderate; patient may slur some words but can be understood without difficulty. -: 2=Severe; patients speech so slurred as to be unintelligible in the absence of dysphasia. -: UN=Intubated or other physical barrier, explain in comments. 10. Responses: 0 11. Extinction or inattention: 0=No abnormality -: 1= Visual, tactile, auditory, spatial, or personal inattention or extinction to bilateral simulation in one or the sensory modalities. -: 2=Profound lewis-inattention or lewis-inattention to more than one modality; do es not recognize own hand. 11. Responses: 0 Total Score: 0
[2018-06-28 01:45] LABS: T.VAGINALIS (WET MOUNT) NO TRICHOMONAS SEEN
[2018-06-28 01:46] LABS: EPITHELIALS (WET MOUNT) 3+ EPITHELIALS SEEN; RBCS (WET MOUNT) NO RBCS SEEN; WBCS (WET MOUNT) NO WBCS SEEN; YEAST (WET MOUNT) NO YEAST SEEN
[2018-06-28 02:23] LABS: APPEARANCE,URINE CLEAR; BILIRUBIN,URINE NEGATIVE (NEGATIVE); COLOR,URINE COLORLESS; GLUCOSE, URINE NEGATIVE (NEGATIVE); KETONES,URINE NEGATIVE (NEGATIVE); LEUKOCYTE ESTERASE,URINE NEGATIVE (NEGATIVE); NITRITE,URINE NEGATIVE (NEGATIVE); PROTEIN,URINE NEGATIVE (NEGATIVE); URINE SPECIFIC GRAVITY 1.001; UROBILINOGEN,URINE NEGATIVE mg/dL (<2.0)
[2018-06-28] MEDS ORDERED: FLUCONAZOLE 100 MG TABLET PO ONE (02:51)
[2018-06-28 02:54] LABS: URINE BARBITURATES SCREEN NEGATIVE; URINE BENZODIAZEPINES SCREEN NEGATIVE; URINE COCAINE SCREEN NEGATIVE; URINE MARIJUANA (THC) SCREEN NEGATIVE; URINE METHADONE SCREEN NEGATIVE; URINE PHENCYCLIDINE SCREEN NEGATIVE
[2018-06-28 03:17] LABS: CHLAM PCR NOT DETECTED (NOT DETECT); GON PCR NOT DETECTED (NOT DETECT)
[2018-06-28] MEDS ORDERED: DIAZEPAM 5 MG TABLET PO ONE (03:26)
[2018-06-28 03:40] VITALS: BP 118/70
== END 2018-06-28 03:40 | disposition home or self-care (01) ==
LOC: ER 00:23
DX: F41.9 Anxiety disorder, unspecified (principal); F40.10 Social phobia, unspecified; N76.0 Acute vaginitis; E03.9 Hypothyroidism, unspecified; Z79.899 Other long term (current) drug therapy; Z63.5 Disruption of family by separation and divorce; F17.210 Nicotine dependence, cigarettes, uncomplicated; Z88.8 Allergy status to other drugs, medicaments and biological substances
CPT/HCPCS: 80307; 81001; 81025; 87210; 87491; 87591; 99284

== ENCOUNTER 2019-05-15 22:01 | Emergency (ER) | payer SELFPAY ==
[2019-05-16] MEDS ORDERED: NORMAL SALINE 1000 ML 1,000 ML IV ONE (00:06)
--- NOTE | 2019-05-16 00:08 | ER Document Report ---
ED Medical Screen (RME) - General Chief Complaint: Wound Infection Stated Complaint: LEFT LEG WOUND Time Seen by Provider: 05/16/19 00:05 Mode of Arrival: Ambulatory Information source: Patient Notes: Patient presents complaining of chronic wound to the left groin area that is worsened recently. Patient states that she cannot take the pain anymore which prompted her visit tonight. Patient does complain of vaginal swelling. Patient does report purulent drainage from the wound. Patient denies any fever. Patient states the wound has been present for the past year. I have greeted and performed a rapid initial assessment of this patient. A comprehensive ED assessment and evaluation of the patient, analysis of test results and completion of the medical decision making process will be conducted by additional ED providers. TRAVEL OUTSIDE OF THE [place] IN LAST 30 DAYS: No - Related Data Allergies/Adverse Reactions: naproxen [From Aleve] Allergy (Verified 05/16/19 00:04) Past Medical History Pulmonary Medical History: Reports: Hx Bronchitis, Hx Pneumonia Endocrine Medical History: Reports: Hx Hypothyroidism Renal/ Medical History: Denies: Hx Peritoneal Dialysis Past Surgical History: Reports: Hx Breast Surgery - augmentation, Hx Section - 3, Hx Nose Surgery - Deviated septum, Hx Tonsillectomy, Other - Bilateral tubal ligation - Immunizations Immunizations up to date: Yes Hx Diphtheria, Pertussis, Tetanus Vaccination: Yes Physical Exam - Vital signs Vitals: Temp Pulse Resp BP Pulse Ox 97.9 F 132 H 20 122/77 96 05/15/19 23:05/15/19 23:05/15/19 23:05/15/19 23:05/15/19 23:09 - General Notes: Tenderness, erythema to the left groin area, patient with purulent drainage noted to left groin area - Cardiovascular Rhythm: Tachycardia Heart sounds: S1 appreciated, S2 appreciated Course - Vital Signs Vital signs: Temp Pulse Resp BP Pulse Ox 97.9 F 132 H 20 122/77 96 05/15/19 23:05/15/19 23:05/15/19 23:05/15/19 23:05/15/19 23:09
[2019-05-16 01:49] LABS: ABSOLUTE BASOPHILS # (AUTO) 0.1 10^3/uL (0.0-0.2); ABSOLUTE EOSINOPHILS # (AUTO) 0.2 10^3/uL (0.0-0.6); ABSOLUTE LYMPHOCYTES (AUTO) 2.6 10^3/uL (0.5-4.7); ABSOLUTE MONOCYTES (AUTO) 0.9 10^3/uL (0.1-1.4); ABSOLUTE NEUT (AUTO) 11.4 10^3/uL (1.7-8.2); HEMATOCRIT 44.8 % (36.0-47.0); HEMOGLOBIN 15.3 g/dL (12.0-15.5); LYMPHOCYTES % (AUTO) 16.9 % (13-45); MEAN CORPUSCULAR HEMOGLOBIN 30.7 pg (27.0-33.4); MEAN CORPUSCULAR HGB CONC 34.2 g/dL (32.0-36.0); MEAN CORPUSCULAR VOLUME 90 fl (80-97); MONOCYTES % (AUTO) 5.9 % (3-13); PLATELET COUNT 441 10^3/uL (150-450); RED CELL DISTRIBUTION WIDTH 14.4 % (11.5-14.0); SEGMENTED NEUTROPHILS % (AUTO) 75.2 % (42-78); TOTAL CELLS COUNTED % (AUTO) 100 %; WHITE BLOOD COUNT 15.1 10^3/uL (4.0-10.5)
[2019-05-16 01:58] LABS: APPEARANCE,URINE CLEAR; BILIRUBIN,URINE NEGATIVE (NEGATIVE); COLOR,URINE STRAW; GLUCOSE, URINE NEGATIVE (NEGATIVE); KETONES,URINE NEGATIVE (NEGATIVE); LEUKOCYTE ESTERASE,URINE TRACE (NEGATIVE); NITRITE,URINE NEGATIVE (NEGATIVE); PROTEIN,URINE NEGATIVE (NEGATIVE); URINE SPECIFIC GRAVITY 1.004; UROBILINOGEN,URINE NEGATIVE mg/dL (<2.0)
[2019-05-16 02:03] LABS: ALKALINE PHOSPHATASE 141 U/L (38-126); ANION GAP 12 (5-19); ASPARTATE AMINO TRANSFERASE 25 U/L (14-36); BILIRUBIN,TOTAL 0.5 mg/dL (0.2-1.3); BLOOD UREA NITROGEN 10 mg/dL (7-20); CALCIUM 10.8 mg/dL (8.4-10.2); CARBON DIOXIDE 28 mmol/L (22-30); CHLORIDE 100 mmol/L (98-107); GLUCOSE 93 mg/dL (75-110); POTASSIUM 4.7 mmol/L (3.6-5.0); TOTAL PROTEIN 8.5 g/dL (6.3-8.2)
[2019-05-16] MEDS ORDERED: ONDANSETRON HCL INJ/PF 4 MG/2 ML SDV IV ONE (03:06)
[2019-05-16] MEDS ORDERED: MORPHINE SULFATE 10 MG/ML INJ IV ONE (03:06)
--- NOTE | 2019-05-16 03:08 | ER Document Report ---
ED General - General Chief Complaint: Wound Infection Stated Complaint: LEFT LEG WOUND Time Seen by Provider: 05/16/19 00:05 Mode of Arrival: Ambulatory Notes: Patient is a 38-year-old female that comes to the emergency department for chief complaint of an area to the left groin that is tender, erythematous, and draini ng purulent drainage. She states this has been there for over a year, she states that she did see primary care and they put on antibiotics, she states it got a lot better but after stopping the antibiotics several months ago it became worse again. She denies fever, vomiting, vaginal discharge, bleeding. She states she has a history of "borderline diabetes" and is on metformin for this, she is also treated for hypothyroidism, had a and tubal ligation, and has a history of anxiety. She reports marijuana but denies IV drug abuse. TRAVEL OUTSIDE OF THE [place] IN LAST 30 DAYS: No - Related Data Allergies/Adverse Reactions: naproxen [From Aleve] Allergy (Verified 05/16/19 00:04) Past Medical History - General Information source: Patient - Social History Smoking Status: Never Smoker Chew tobacco use (# tins/day): No Frequency of alcohol use: Rare Drug Abuse: Marijuana Lives with: Family Family History: Malignancy, Thyroid Disfunction Patient has suicidal ideation: No Patient has homicidal ideation: No Pulmonary Medical History: Reports: Hx Bronchitis, Hx Pneumonia Endocrine Medical History: Reports: Hx Hypothyroidism Renal/ Medical History: Denies: Hx Peritoneal Dialysis Past Surgical History: Reports: Hx Breast Surgery - augmentation, Hx Section - 3, Hx Nose Surgery - Deviated septum, Hx Tonsillectomy, Other - Bilateral tubal ligation - Immunizations Immunizations up to date: Yes Hx Diphtheria, Pertussis, Tetanus Vaccination: Yes Review of Systems - Review of Systems Constitutional: No symptoms reported EENT: No symptoms reported Cardiovascular: No symptoms reported Respiratory: No symptoms reported Gastrointestinal: See HPI Genitourinary: See HPI Female Genitourinary: See HPI Musculoskeletal: No symptoms reported Skin: See HPI Hematologic/Lymphatic: No symptoms reported Neurological/Psychological: No symptoms reported Physical Exam - Vital signs Vitals: Temp Pulse Resp BP Pulse Ox 97.9 F 132 H 20 122/77 96 05/15/19 23:09 05/15/19 23:09 05/15/19 23:09 05/15/19 23:09 05/15/19 23:09 - Notes Notes: GENERAL: Somewhat uncomfortable and anxious in appearance but no severe distress HEAD: Normocephalic, atraumatic. EYES: Pupils equal, round, and reactive to light. Extraocular movements intact. ENT: Oral mucosa moist, tongue midline. Oropharynx unremarkable. Airway patent. Nares patent, no nasal septal hematoma, TM's intact. NECK: Full range of motion. Supple. Trachea midline. LUNGS: Clear to auscultation bilaterally, no wheezes, rales, or rhonchi. No respiratory distress. HEART: Borderline tachycardia, normal rhythm, no murmur ABDOMEN: Soft, non-tender. Non-distended. Bowel sounds present in all 4 quadrants. GENITOURINARY: Over both inguinal areas there is an obvious candidal rash with erythema, there is also small amount of skin breakdown and in this area there is some cellulitis extending away from this. This is similar in both inguinal regions but much worse on the left. There is no induration or fluctuance, there is mild skin debridement in both areas but this is minimal. There is no necrotic skin or severe tenderness. Near the anus there is also a candidal rash without noted cellulitis or abscess. Nontender perineum. No perianal abscess noted. Exam performed with Sierra DOMINGUEZ assisting. EXTREMITIES: Moves all 4 extremities spontaneously. No edema, normal radial and dorsalis pedis pulses bilaterally. No cyanosis. BACK: no cervical, thoracic, lumbar midline tenderness. No saddle anesthesia, normal distal neurovascular exam. Moves all extremities in full range of motion. NEUROLOGICAL: Alert and oriented x3. Normal speech. Cranial nerves II through XII grossly intact. PSYCH: Anxious, speaks rapidly SKIN: Warm, dry, normal turgor. No rashes or lesions noted. Course - Re-evaluation Re-evalutation: CBC does show leukocytosis at 15,000 with elevation of neutrophils but no bandemia. Patient was tachycardic but anxious, after discussion and examination she calmed down and her tachycardia resolved. She is not hypotensive or febrile. She does not have diabetes. Remaining work-up unremarkable. Exam indicates inguinal candidal rash with secondary cellulitis. There is no abscess noted in this area or the perianal area. Perianal area also has some candidal rash. Patient is sweaty and has a lot of moisture in these areas. I explained the importance of the area being dry, discussed the nature of the rash, discussed treatment including oral and topical antifungal and antibiotic management, discussed wound care, follow-up, return precautions. Patient states understanding and agreement. - Vital Signs Vital signs: Temp Pulse Resp BP Pulse Ox 97.4 F 100 18 129/81 H 94 05/16/19 04:47 05/16/19 04:47 05/16/19 04:47 05/16/19 04:47 05/16/19 04:47 - Laboratory Result Diagrams: 05/16/19 01:38 05/16/19 01:38 Laboratory results interpreted by me: 05/16/19 05/16/19 05/16/19 01:38 01:38 01:38 WBC 15.1 H RDW 14.4 H Absolute Neuts (auto) 11.4 H Calcium 10.8 H Alkaline Phosphatase 141 H Total Protein 8.5 H Ur Leukocyte Esterase TRACE H Discharge - Discharge Clinical Impression: Skin infection Cellulitis Qualifiers: Site of cellulitis: unspecified site Qualified Code(s): L03.90 - Cellulitis, unspecified Disposition: HOME, SELF-CARE Additional Instructions: Your evaluation shows areas of Katt (fungal) infection with secondary bacterial infection. Take the doxycycline as prescribed, afterwards take the Diflucan. Keep the area is very dry. Apply the topical antifungal as prescribed as the area begins to clear. Follow-up with primary care. Come back if you are worse including spreading redness, spiking fever, vomiting, or any other concerning or worsening symptoms. Prescriptions: Clotrimazole [Antifungal] 1 dose TP ASDIR PRN #1 cream..g. PRN Reason: Fluconazole [Diflucan] 150 mg PO ONCE PRN #3 tablet PRN Reason: Doxycycline Hyclate [Vibramycin 100 mg Tablet] 100 mg PO BID 7 Days #14 tablet Forms: Return to Work
[2019-05-16] MEDS ORDERED: FLUCONAZOLE 100 MG TABLET PO ONE (04:18)
[2019-05-16] MEDS ORDERED: HYDROCODONE/ACETAMINOPHEN 5-325 MG (6 TAB/ER DISP) PO PRN (04:19)
[2019-05-16] MEDS ORDERED: DOXYCYCLINE HYCLATE 100 MG TABLET PO ONE (04:19)
[2019-05-16 04:49] VITALS: BP 129/81
== END 2019-05-16 04:49 | disposition home or self-care (01) ==
LOC: ER 22:01
DX: L03.90 Cellulitis, unspecified (principal); B37.49 Other urogenital candidiasis; R00.0 Tachycardia, unspecified; R73.03 Prediabetes; E03.9 Hypothyroidism, unspecified; Z79.84 Long term (current) use of oral hypoglycemic drugs; Z79.899 Other long term (current) drug therapy; F12.10 Cannabis abuse, uncomplicated; Z88.8 Allergy status to other drugs, medicaments and biological substances
CPT/HCPCS: 99284; 96361; 96374; 96375; 36415; 84703; 85025; 80053; 81001; J2270; J2405; J7030

== ENCOUNTER 2019-06-18 20:01 | Emergency (ER) | payer SELFPAY ==
--- NOTE | 2019-06-18 20:42 | ER Document Report ---
ED Medical Screen (RME) - General Chief Complaint: Skin Problem Stated Complaint: SKIN INFECTION Time Seen by Provider: 06/18/19 20:37 Mode of Arrival: Ambulatory Information source: Patient Notes: Patient is an otherwise healthy 39-year-old female presenting to the emergency department with chief complaint of possible rash/infection to her groin and buttocks. Patient reports she has had this for several years and has been on multiple medications. Patient reports she was seen by a provider here in this emergency department approximately 1 month ago, she states that he put her on all the right medicines which actually started helping her symptoms. She states that after the medications were done her symptoms have now returned. Unable to fully visualize patient's rash areas in the triage area. Patient will be seen in the back. I have greeted and performed a rapid initial assessment of this patient. A comprehensive ED assessment and evaluation of the patient, analysis of test results and completion of the medical decision making process will be conducted by additional ED providers. I have specifically instructed the patient or family members with the patient to immediately return to any nursing staff should anything change in the patient's condition or with their chief complaint. TRAVEL OUTSIDE OF THE [place] IN LAST 30 DAYS: No - Related Data Allergies/Adverse Reactions: naproxen [From Aleve] Allergy (Verified 06/18/19 20:40) Past Medical History Pulmonary Medical History: Reports: Hx Bronchitis, Hx Pneumonia Endocrine Medical History: Reports: Hx Hypothyroidism Renal/ Medical History: Denies: Hx Peritoneal Dialysis Past Surgical History: Reports: Hx Breast Surgery - augmentation, Hx Section - 3, Hx Nose Surgery - Deviated septum, Hx Tonsillectomy, Other - Bilat eral tubal ligation - Immunizations Immunizations up to date: Yes Hx Diphtheria, Pertussis, Tetanus Vaccination: Yes Physical Exam - Vital signs Vitals: Temp Pulse Resp BP Pulse Ox 99.0 F 105 H 16 147/97 H 97 06/18/19 20:11 06/18/19 20:11 06/18/19 20:11 06/18/19 20:11 06/18/19 20:11 Course - Vital Signs Vital signs: Temp Pulse Resp BP Pulse Ox 99.0 F 105 H 16 147/97 H 97 06/18/19 20:11 06/18/19 20:11 06/18/19 20:11 06/18/19 20:11 06/18/19 20:11
[2019-06-18] MEDS ORDERED: ACETAMINOPHEN 325 MG TABLET PO ONE (21:22)
[2019-06-18] MEDS ORDERED: DOXYCYCLINE HYCLATE 100 MG TABLET PO ONE (22:35)
[2019-06-18] MEDS ORDERED: FLUCONAZOLE 100 MG TABLET PO ONE (22:41)
[2019-06-18 22:53] VITALS: BP 138/82
--- NOTE | 2019-06-19 15:14 | ER Document Report ---
Entered by GERARDO COLEMAN SCRIBE [id number] Acting as scribe for:RONN TORRE DO ED Skin Rash/Insect Bite/Abscs - General Chief Complaint: Skin Problem Stated Complaint: SKIN INFECTION Time Seen by Provider: 06/18/19 20:37 Primary Care Provider: CHRISTOPHER JURADO FNP-C [Primary Care Provider] - Follow up as needed Mode of Arrival: Ambulatory Information source: Patient Notes: This 39 year old female patient presents to the ED today with complaints of the return of a rash to her bilateral groin and gluteal crease. Patient states that she has had the rash for x2 years and that when she was seen here approximately x1 month ago for it, she was prescribed a week supply of Doxy. Patient reports that the medications started helping her symptoms, but as soon as she finished it, the rash returned. Patient states that she tries to keep the area dry by using a fan and that she doesn't wear underwear so as to not irritate the rash. Patient reports that her last menstrual period was in May 2016. Patient denies fever. TRAVEL OUTSIDE OF THE [place] IN LAST 30 DAYS: No - Related Data Allergies/Adverse Reactions: naproxen [From AleDSI MET-TECH] Allergy (Verified 06/18/19 20:40) Home Medications: synthroid, metformin Past Medical History - General Information source: Patient - Social History Smoking Status: Never Smoker Cigarette use (# per day): No Chew tobacco use (# tins/day): No Smoking Education Provided: No Frequency of alcohol use: Rare Drug Abuse: None Family History: Reviewed & Not Pertinent, Malignancy, Thyroid Disfunction Patient has suicidal ideation: No Patient has homicidal ideation: No Pulmonary Medical History: Reports: Hx Bronchitis, Hx Pneumonia Endocrine Medical History: Reports: Hx Diabetes Mellitus Type 2, Hx Hypothyroidism Past Surgical History: Reports: Hx Breast Surgery - augmentation, Hx Section - 3, Hx Nose Surgery - Deviated septum, Hx Tonsillectomy, Hx Tubal Ligation - Immunizations Immunizations up to date: Yes Hx Diphtheria, Pertussis, Tetanus Vaccination: Yes Review of Systems - Review of Systems Constitutional: See HPI. denies: Fever EENT: No symptoms reported Cardiovascular: No symptoms reported Respiratory: No symptoms reported Gastrointestinal: No symptoms reported Genitourinary: No symptoms reported Female Genitourinary: No symptoms reported Musculoskeletal: No symptoms reported Skin: See HPI, Rash Hematologic/Lymphatic: No symptoms reported Neurological/Psychological: No symptoms reported -: Yes All other systems reviewed and negative Physical Exam - Vital signs Vitals: Temp Pulse Resp BP Pulse Ox 99.0 F 105 H 16 147/97 H 97 06/18/19 20:11 06/18/19 20:11 06/18/19 20:11 06/18/19 20:11 06/18/19 20:11 Interpretation: Normal - General General appearance: Alert - HEENT Head: Normocephalic, Atraumatic Eyes: Normal Pupils: PERRL - Respiratory Respiratory status: No respiratory distress Chest status: Nontender Breath sounds: Normal Chest palpation: Normal - Cardiovascular Rhythm: Regular Heart sounds: Normal auscultation Murmur: No - Abdominal Inspection: Obese Distension: No distension Bowel sounds: Normal Tenderness: Nontender - Abdomen soft Organomegaly: No organomegaly - Back Back: Normal, Nontender - Extremities General upper extremity: Normal inspection General lower extremity: Normal inspection - Neurological Neuro grossly intact: Yes - Psychological Associated symptoms: Normal affect, Normal mood - Skin Skin Temperature: Warm Skin Moisture: Dry Skin Color: Normal Skin irregularity: Rash - Patient has a weeping, moist, wet, erythematous rash in her intertriginous areas bilaterally. No perineal involvement. Slight amount of discharge noted. No streaking noted. Course - Re-evaluation Re-evalutation: 06/18/19 22:36 MDM 39 year old male arrives with weeping and redness in intriginous region. Mild secondary bact infection to chronic yeast infection pt with borderline dm reportedly. She does not have any streaking so no concern for cellulitis. Additionally no perianal involvement. Discussed keeping this area as dry as possible and she expressed understanding. Will have her follow up - she sees Garcia locally. She knows to return here for fever or worsening. FSBS here is nl. - Vital Signs Vital signs: Temp Pulse Resp BP Pulse Ox 99.2 F 98 20 138/82 H 97 06/18/19 22:45 06/18/19 22:45 06/18/19 22:45 06/18/19 22:45 06/18/19 22:45 - Laboratory Laboratory results interpreted by me: 06/18/19 21:24 POC Glucose 117 H Discharge - Discharge Clinical Impression: Katt infection Condition: Good Disposition: HOME, SELF-CARE Instructions: Ringworm (Tinea Corporis) ([facility]), Vaginal Yeast Infection ([facility]) Additional Instructions: Take the medicine as directed. Take tylenol or ibuprofen for pain. See your doctor in follow up. Rest. Please return here for any problems or any concerns. Prescriptions: Ibuprofen [Motrin 600 mg Tablet] 600 mg PO Q8HP PRN #30 tablet PRN Reason: Fluconazole [Diflucan] 100 mg PO Q3D #5 tablet Doxycycline Hyclate [Vibramycin 100 mg Tablet] 100 mg PO DAILY #30 tablet Referrals: CHRISTOPHER JURADO, MANAGEMENT CONSULTING-C [Primary Care Provider] - Follow up as needed I personally performed the services described in the documentation, reviewed and edited the documentation which was dictated to the scribe in my presence, and it accurately records my words and actions.
== END 2019-06-18 22:53 | disposition home or self-care (01) ==
LOC: ER 20:01
DX: B37.2 Candidiasis of skin and nail (principal); E66.9 Obesity, unspecified; Z79.84 Long term (current) use of oral hypoglycemic drugs; Z98.51 Tubal ligation status
CPT/HCPCS: 82962; 99283

== ENCOUNTER 2019-09-27 12:23 | Emergency (ER) | payer SELFPAY ==
[2019-09-27 12:28] VITALS: BP 148/97
--- NOTE | 2019-09-27 13:15 | ER Document Report ---
ED Medical Screen (RME) - General Chief Complaint: Seizure Stated Complaint: POSSIBLE SEIZURE Time Seen by Provider: 09/27/19 13:03 Primary Care Provider: CHRISTOPHER JURADO FNP-C [Primary Care Provider] - Follow up as needed Notes: Patient is a 39-year-old female who presents to the emergency department with a chief complaint of a possible seizure. Patient was lying in bed and heard a loud noise. Patient states that loud noise woke her up and she could not move. Patient states that she ended up "blacking out" and when she can consciousness, she did not know what happened. Patient was recently diagnosed with Langerhans cell histiocytosis. She is being seen by [facility] for this. She had an MRI done yesterday. Patient has not received results of her MRI. Exam: Alert and oriented. I have greeted and performed a rapid initial assessment of this patient. A comprehensive ED assessment and evaluation of the patient, analysis of test results and completion of medical decision making process will be conducted by an additional ED providers. TRAVEL OUTSIDE OF THE [place] IN LAST 30 DAYS: No - Related Data Allergies/Adverse Reactions: naproxen [From Aleve] Allergy (Verified 06/18/19 20:40) Past Medical History Pulmonary Medical History: Reports: Hx Bronchitis, Hx Pneumonia Endocrine Medical History: Reports: Hx Diabetes Mellitus Type 2, Hx Hypothyroidism Renal/ Medical History: Denies: Hx Peritoneal Dialysis Past Surgical History: Reports: Hx Breast Surgery - augmentation, Hx Section - 3, Hx Nose Surgery - Deviated septum, Hx Tonsillectomy, Hx Tubal Ligation, Other - Bilateral tubal ligation - Immunizations Immunizations up to date: Yes Hx Diphtheria, Pertussis, Tetanus Vaccination: Yes Physical Exam - Vital signs Vitals: Temp Pulse Resp BP Pulse Ox 97.7 F 114 H 16 148/97 H 97 09/27/19 12:09/27/19 12:09/27/19 12:09/27/19 12:09/27/19 12:26 Course - Vital Signs Vital signs: Temp Pulse Resp BP Pulse Ox 97.7 F 114 H 16 148/97 H 97 09/27/19 12:09/27/19 12:09/27/19 12:09/27/19 12:09/27/19 12:26 Doctor's Discharge - Discharge Referrals: CHRISTOPHER JURADO, OFFICE MESSENGER-C [Primary Care Provider] - Follow up as needed
[2019-09-27 13:54] LABS: APPEARANCE,URINE CLEAR; BILIRUBIN,URINE NEGATIVE (NEGATIVE); COLOR,URINE COLORLESS; GLUCOSE, URINE NEGATIVE (NEGATIVE); KETONES,URINE NEGATIVE (NEGATIVE); LEUKOCYTE ESTERASE,URINE NEGATIVE (NEGATIVE); NITRITE,URINE NEGATIVE (NEGATIVE); PROTEIN,URINE NEGATIVE (NEGATIVE); URINE SPECIFIC GRAVITY 1.001; UROBILINOGEN,URINE NEGATIVE mg/dL (<2.0)
== END 2019-09-27 15:18 | disposition left against medical advice (07) ==
LOC: ER 12:23
DX: R41.82 Altered mental status, unspecified (principal); E23.2 Diabetes insipidus; C96.6 Unifocal Langerhans-cell histiocytosis; Z88.8 Allergy status to other drugs, medicaments and biological substances; Z53.29 Procedure and treatment not carried out because of patient's decision for other reasons
CPT/HCPCS: 81001; 99281

== ENCOUNTER → 2019-09-28 | Outpatient (CLI) | payer SELFPAY | LOC: OD 08:36 | PROVIDERS: ATTEND Internal Medicine Endocrinology, Diabetes & Metabolism | DX: C96.6 Unifocal Langerhans-cell histiocytosis (principal); R35.8 Other polyuria; R35.1 Nocturia | CPT/HCPCS: 82533; 83930; 83935; 84295; 84305 ==